=== PATIENT | female | born 1965 | race African-American/Black ===

== ENCOUNTER 2024-05-13 21:50 | Emergency (ER) | payer BC, SELFPAY ==
--- NOTE | 2024-05-13 | ECG_ITS ---
Test Reason : chest tightness Blood Pressure : / mmHG Vent. Rate : 064 BPM Atrial Rate : 064 BPM P-R Int : 174 ms QRS Dur : 088 ms QT Int : 400 ms P-R-T Axes : 076 067 060 degrees QTc Int : 412 ms Normal sinus rhythm Minimal voltage criteria for LVH, may be normal variant ( Sokolow-Mares ) Borderline ECG No previous ECGs available Referred By: Generic ED Physician Electronically Signed By:MELVIN RAMIREZ
--- NOTE | ~2024-05-13 | CT_ITS ---
EXAMINATION: CT CHEST WITH CONTRAST CLINICAL INFORMATION: Indeterminate opacity on chest radiograph COMPARISON: 05/14/2024 chest radiograph TECHNIQUE: Multidetector volumetric CT imaging of the chest was obtained after the administration of 50 mL of Omnipaque 350 intravenous contrast without immediate adverse reactions. Axial MIP volume rendering provided. Sagittal and coronal reformatted images were obtained. This CT examination was performed using dose optimization techniques as appropriate, variously including the following: *Automated exposure control *Adjustment of mA and/or kV according to patient size (this includes techniques or standardized protocols for targeted exams where dose is matched to indication/reason for exam; i.e. 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 LUNGS: Trachea and bronchi are patent. Biapical pleural-parenchymal thickening. Bilateral lower lobe atelectasis. Lobulated right upper lobe mass identified extending from the anterolateral pleura toward the right suprahilar region. This is contiguous with the nodular appearing horizontal fissure. Maximum diameter in the range of 3.5 cm. NODULES: RLL: 3 mm subpleural, 5:255 4 mm subpleural, 5:312 LLL: 3 mm of pleural, 5:309, 6 mm nodule, 5:365 MEDIASTINUM: Diffusely abnormal soft tissue densities in the mediastinum and right hilum consistent with confluent lymphadenopathy. Largest confluence of lymph nodes in the right superior mediastinum/right paratracheal region measuring 3.1 cm. In the anterior mediastinum at the level of the aortic arch and the superior vena cava, 2.1 cm lymph node is seen. Pretracheal lymphadenopathy with 2.5 cm centrally hypodense region. 2.6 cm right supra hilar lymph node. Aurora of nodes in the subcarinal region measuring 3.5 cm. Unremarkable thyroid. Nonenlarged heart. No pericardial effusion. Nonaneurysmal aorta with patency of the branch vessels. Nonenlarged pulmonary arteries. PLEURA: There is no pleural effusion. No pleural mass or thickening. AXILLA: No lymphadenopathy. UPPER ABDOMEN: Enlarged liver. OSSEOUS STRUCTURES: No suspicious osseous lesions. CT/CT chest w IV con IMPRESSION: CT findings suspicious for right upper lobe neoplasm with pathologic mediastinal lymphadenopathy. PET/CT and/or tissue diagnosis recommended. Consider short-term CT follow-up.
--- NOTE | ~2024-05-13 | XR_ITS ---
EXAMINATION: XR CHEST CLINICAL INFORMATION: Chest pressure for 2 weeks. Cough. COMPARISON: None available. TECHNIQUE: 2 views of the chest were obtained. FINDINGS: Lungs are well expanded. On the lateral radiograph, there appears to be an ill-defined nodule or possible small airspace opacity in the anterior aspect of what is likely the right upper lobe, although no convincing upper lobe abnormality seen on the frontal radiograph. Also, there is a mild prominence of the right hilum -- possible mild hilar adenopathy. Cardiomediastinal silhouette has normal size and contour. The pulmonary vascular pattern is normal. No pleural effusion or pneumothorax. No acute osseous abnormality. XR/XR chest 2V IMPRESSION: There is an indeterminate, ill-defined opacity projecting over the anterior upper lung on the lateral radiograph and questionable presence of right hilar lymphadenopathy. Due to diagnostic uncertainty, recommend follow-up chest CT with intravenous contrast for better evaluation of the lungs and pulmonary el.
[2024-05-13 22:08] VITALS: BP 151/81; PULSE 62; RESP 18; TEMP 36.7; O2SAT 100; BMI 22.3
[2024-05-13 22:29] LABS: MANUAL DIFF FLAG NO
[2024-05-13 22:30] LABS: Basophils Percent Auto 0.5 % (0-2); Eosinophils Absolute Auto 0.1 X10*3/uL (0.0-0.4); Eosinophils Percent Auto 0.9 % (0-4); Hematocrit 38.1 % (37.0-47.0); Hemoglobin 12.5 g/dl (12.0-16.0); Imm Gran Abs Auto 0.01 X10*3/uL (0.00-0.03); Imm Gran Pct Auto 0.2 % (0.0-0.4); Lymphocytes Absolute Auto 1.7 X10*3/uL (1.2-4.9); Lymphocytes Percent Auto 31.3 % (20-40); Mean Corpuscular HGB Conc 32.8 g/dl (31.0-35.0); Mean Corpuscular Hemoglobin 30.3 pg (27.0-33.0); Mean Corpuscular Volume 92.5 fL (80.0-98.0); Monocytes Absolute Auto 0.4 X10*3/uL (0.1-1.2); Monocytes Percent Auto 6.7 % (2-11); Neutrophils Absolute Auto 3.3 x10*3/uL (2.0-8.3); Neutrophils Percent Auto 60.4 % (45-73); Platelet Count 171 X10*3/uL (160-400); Red Blood Count 4.12 X10*6/uL (4.20-5.50); Red Cell Distribution Width 13.5 % (11.0-16.0); White Blood Count 5.5 X10*3/uL (4.8-10.8)
[2024-05-13 22:45] LABS: Anion Gap 11 (12-20); Blood Urea Nitrogen 18 mg/dL (9-16); Calcium 9.6 mg/dL (8.4-10.2); Carbon Dioxide 28 mmol/L (22-29); Chloride 105 mmol/L (96-108); Creatinine Clr Calc Pharmacy 70.8; Estimated Glomerular Filt Rate > 60; Glucose Random 93 mg/dL (60-115); Potassium 3.7 mmol/L (3.3-5.1); Sodium 140 mmol/L (135-145)
[2024-05-13 22:54] LABS: Troponin-I High Sensitivity < 2.7 ng/L (<3.5-17.0)
[2024-05-14 00:52] VITALS: BP 149/67; PULSE 69; RESP 16; TEMP 36.6; O2SAT 100
--- NOTE | 2024-05-14 05:59 | MHC.EDTECH ---
pt brought from waiting room to ed bed 19. 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
[2024-05-14 06:00] VITALS: BP 138/73; PULSE 61; RESP 14; TEMP 36.8; O2SAT 98
--- NOTE | 2024-05-14 06:24 | ED_ITS ---
HPI - Chest Pain General Chief Complaint: Chest Pain Stated Complaint: chest pressure and tightness Time Seen by Provider: 05/14/24 06:24 Source: patient Mode of arrival: ambulatory Limitations: no limitations History of Present Illness ED Provider: dorene PICHARDO narrative: Patient is a 59-year-old female with no reported past medical history, states only takes vitamins and supplements daily presenting to the emergency department with complaint of chest pressure for the past 1-2 weeks, yesterday developed sore throat and painful swallowing. States she was evaluated for the chest pressure at urgent care and had chest x-ray, labs, and EKG which she was told were all normal. Has taken ibuprofen for the chest pressure with temporary relief. States the pressure has waxed and waned but has been constant. Feels pressure worsens when she leans forward. Denies fevers. Does report occasional nonproductive cough. Denies known sick contacts. Describes her chest pressure as a discomfort and states it is not pain. She denies difficulty breathing. Denies palpitations. Denies history of blood clots, recent travel or surgery, is not on any hormone replacement therapy. Denies abdominal pain, nausea, vomiting. She denies history of smoking, states she did not grow up around second-hand smoke, briefly had one living arrangement where she was exposed to second hand smoke. complaint: chest heaviness Onset (ago): week(s) Timing of current episode: constant Quality: heaviness Associated symptoms: cough and other (sore throat) Treatment prior to arrival: other (ibuprofen) Related Data Allergies Allergy/AdvReac Type Severity Reaction Status Date / Time No Known Allergies Allergy Verified 05/13/24 22:11 Review of Systems 2 Review of Systems: As per HPI. Yes all other systems are reviewed and are negative Constitutional: Constitutional: Reports as per HPI [facility] Social History Social History Alcohol intake: current Alcohol intake frequency: a few times a week Smoked in Last 30 Days: No Use of substances other than those prescribed or required for medical reasons: No Advance Directives: No Advance Directives Information Provided: Yes Patient : No Physical Exam 2 Vital Signs: Vital Signs: Last Vital Signs Temp 98.2 F 05/14/24 06:00 Pulse 68 05/14/24 08:05 Resp 16 05/14/24 08:05 BP 146/65 H 05/14/24 08:05 Pulse Ox 98 05/14/24 08:05 O2 Del Method Room Air 05/14/24 08:05 BMI result Body Mass Index 22.3 Vital signs have been reviewed and appear to be correct. Blood pressure normal. Heart rate normal. Respiratory rate normal. Temperature normal. Oxygen saturation normal. Const: General: cooperative, healthy appearing and no acute distress O rientation/consciousness: oriented to person, oriented to place, oriented to time and patient oriented x3 Limitations: no limitations HEENT: Head: Yes normocephalic and Yes atraumatic Ears: external ears normal, TM's normal bilaterally and EAC's normal General nose exam: Normal external nose present Face and sinus: Yes face symmetric Mouth: lip normal, tongue normal, oropharynx normal, moist mucous membranes, no audible dysphonia, no drooling, no muffled voice, no trismus and No restricted motion Throat: Yes uvula midline, No peritonsillar mass, Yes posterior oropharynx abnormal (erythema, mild edema, no exudate) and No uvular edema Eyes: Pupils: Equal, round and reactive pupils present Neck: Neck: Yes normal visual inspection and Yes supple Lymphatic: l ymphadenopathy left anterior cervical Resp: Effort & Inspection: normal respiratory effort and able to speak in complete sentences Auscultation: clear to auscultation bilaterally Cardio: Rate: regular rate Rhythm: regular rhythm Heart sounds: S1 normal heart sound present and S2 normal heart sound present GI: Palpation (GI): Soft to palpation and nontender Auscultation: n ormoactive bowel sounds : General: Yes no CVA tenderness Back/Spine/Pelvis: Back: no CVA tenderness Skin: General skin exam: elasticity normal and turgor normal Neuro: General: oriented to person, oriented to place, oriented to time, patient oriented x3, moves all extremities, no focal motor deficits and CN's II- XI intact bilaterally Cranial nerves: Yes Equal, round and reactive pupils present Cognition (Neuro): normal cognition Extrem: General: Yes full ROM, Yes no pedal edema and Yes no calf tenderness Psych: Mental Status: mental status grossly normal Affect: normal affect Thought process: Normal thought process present Medications Administered Discontinued Medications Generic Name Dose Route Start Last Admin Trade Name Freq PRN Reason Stop Dose Admin Iohexol 100 ml 05/14/24 08:52 05/14/24 08:52 Iohexol 350 Mg/Ml 100 Ml Infus..Btl IV 05/14/24 08:53 65 ml ONCE ONE Administration Medical Decision Making Medical Decision Making [facility] Narrative: Patient is a 59-year-old female with no reported past medical history, states only takes vitamins and supplements daily presenting to the emergency department with complaint of chest pressure for the past 1-2 weeks, yesterday developed sore throat and painful swallowing. On exam patient is awake, A+Ox3, VS WNL, afebrile, normal neurological exam without focal deficits, physical exam findings as above. Given reported symptoms and physical exam findings, initial differential includes ACS, pneumothorax, pneumonia, musculoskeletal pain, viral illness, strep pharyngitis, GERD. Labs unremarkable, troponin negative. EKG shows normal sinus rhythm. Strep and viral swabs negative. X-ray chest notable for indeterminate opacity over anterior upper lung with question for right hilar lymphadeopathy, CT recommended. CT chest notable for right upper lobe mass with mediastinal lymphadenopathy. My interpretation is in agreement with the radiologist's interpretation. Results discussed with patient at bedside and all questions answered. Discussed with patient that she will need follow up with buffer chrome and oncologist as soon as possible for further evaluation and management. Return precautions discussed at bedside. Patient verbalized understanding of and agreement with plan. Differential Diagnosis Differential Diagnoses: The differential diagnosis associated with the presentation includes As per [facility] Admission/Observation Consideration of admission/observation: Escalation of care including admission/observation considered Lab Data [facility] Lab Attestation statement: I reviewed the patient's lab results. As per [facility] 05/13/24 22:24 05/13/24 22:24 Labs: Lab Results 05/13/24 05/14/24 Range/Units 22:24 06:57 WBC 5.5 (4.8-10.8) X10*3/uL RBC 4.12 L (4.20-5.50) X10*6/uL Hgb 12.5 (12.0-16.0) g/dl Hct 38.1 (37.0-47.0) % MCV 92.5 (80.0-98.0) fL MCH 30.3 (27.0-33.0) pg MCHC 32.8 (31.0-35.0) g/dl RDW 13.5 (11.0-16.0) % Plt Count 171 (160-400) X10*3/uL MPV 9.0 L (9.4-12.3) fL Immature Gran % (Auto) 0.2 (0.0-0.4) % Neut % (Auto) 60.4 (45-73) % Lymph % (Auto) 31.3 (20-40) % Bracken % (Auto) 6.7 (2-11) % Eos % (Auto) 0.9 (0-4) % Baso % (Auto) 0.5 (0-2) % Lymph # (Auto) 1.7 (1.2-4.9) X10*3/uL Bracken # (Auto) 0.4 (0.1-1.2) X10*3/uL Eos # (Auto) 0.1 (0.0-0.4) X10*3/uL Baso # (Auto) 0.0 (0.0-0.2) X10*3/uL Abs Immat Gran (auto) 0.01 (0.00-0.03) X10*3/uL Absolute Neuts (auto) 3.3 (2.0-8.3) x10*3/uL Absolute Nucleated RBC 0.000 (0.0-0.012) X10*3/uL Nucleated RBC % (auto) 0.0 (0.0-0.2) /100WBC Sodium 140 (135-145) mmol/L Potassium 3.7 (3.3-5.1) mmol/L Chloride 105 (96-108) mmol/L Carbon Dioxide 28 (22-29) mmol/L Anion Gap 11 L (12-20) BUN 18 H (9-16) mg/dL Creatinine 0.82 (0.5-1.4) mg/dL Estim Creat Clear Calc 70.8 Estimated GFR > 60 Random Glucose 93 (60-115) mg/dL Calcium 9.6 (8.4-10.2) mg/dL Troponin I High Sens < 2.7 (<3.5-17.0) ng/L Influenza Type A (PCR) NEGATIVE (Negative) Influenza Type B (PCR) NEGATIVE (Negative) RSV RNA Qual (PCR) NEGATIVE (Negative) SARS-CoV-2 RNA (RT-PCR) NEGATIVE (Negative) S. pyogenes GrpA JENI Negative (Negative) Independent Interpretation I performed an independent interpretation of an: EKG (normal sinus ), Plain X- Ray and CT Scan Interpretation: X-ray chest notable for indeterminate opacity over anterior upper lung with question for right hilar lymphadeopathy, CT recommended. CT chest notable for right upper lobe mass with mediastinal lymphadenopathy. Radiology Impression Discussion of test interpretation with radiology: I have reviewed the radiologist's reading. Radiologist Impression: XR/XR chest 2V IMPRESSION: There is an indeterminate, ill-defined opacity projecting over the anterior upper lung on the lateral radiograph and questionable presence of right hilar lymphadenopathy. Due to diagnostic uncertainty, recommend follow-up chest CT with intravenous contrast for better evaluation of the lungs and pulmonary el. CT/CT chest w IV con IMPRESSION: CT findings suspicious for right upper lobe neoplasm with pathologic mediastinal lymphadenopathy. PET/CT and/or tissue diagnosis recommended. Consider short-term CT follow-up. External Record Review External record reviewed: Inpatient record, Office record and Outpatient record Discharge Plan Discharge Clinical Impression: Mass of upper lobe of right lung, Mediastinal lymphadenopathy Patient Disposition: Home, Self-Care Instructions: Needle Biopsy of the Lung (DC), Video Assisted Thoracoscopic Surgery (DC), Lymphadenopathy (ED) Additional Instructions: You were evaluated in the emergency department today for chest pressure. Your CT scan showed a mass in your right upper lung with associated lymphadenopahty. We recommend that you follow up with the buffer chrome and oncologist as soon as possible for further evaluation and management. Schedule a follow up appointment with your primary care provider as well. Return to the emergency department if you develop difficulty breathing or shortness of breath, fever, worsening chest pain or any other new or concerning symptoms. Referrals: Verna Drake MD [Physician] - Levar Summers MD [Physician] - Robert Ren MD [Physician] - Print Language: Nepali
[2024-05-14 07:12] LABS: IDNOW Serial# 08D9AD1C; Strep A Nucleic Acid Negative (Negative)
[2024-05-14 08:05] VITALS: BP 146/65; PULSE 68; RESP 16; O2SAT 98
[2024-05-14 08:07] LABS: Influenza A PCR NEGATIVE (Negative); Influenza B PCR NEGATIVE (Negative); Resp Syncy Virus RNA Qual PCR NEGATIVE (Negative); SARS COV2 PCR INHOUSE NEGATIVE (Negative)
[2024-05-14] MEDS: iohexoL 350 MG/ML 100 ML INFUS..BTL IV (08:52)
[2024-05-14 10:30] VITALS: BP 138/78; PULSE 67; RESP 20; TEMP 36.9; O2SAT 100
== END 2024-05-14 10:31 | disposition home or self-care (01) ==
PROVIDERS: Registered Nurse Emergency; Emergency Provider Emergency Medicine
DX: R91.8 Other nonspecific abnormal finding of lung field (principal); R59.0 Localized enlarged lymph nodes; Z03.818 Encounter for observation for suspected exposure to other biological agents ruled out; R05.9 Cough, unspecified; J02.9 Acute pharyngitis, unspecified
CPT/HCPCS: 0241U; 36415; 71046; 71260; 80048; 84484; 85025; 87651; 93005; 99284; 99285; Q9967

== ENCOUNTER → 2024-05-13 21:54 | Outpatient (BNV) | payer BC, SELFPAY | PROVIDERS: Emergency Provider Emergency Medicine; Visit Provider Internal Medicine | DX: R07.89 Other chest pain (principal) | CPT/HCPCS: 93010 ==

== ENCOUNTER → 2024-05-20 11:05 | Outpatient (BNV) | payer BC, SELFPAY | PROVIDERS: PCP Internal Medicine; Visit Provider Internal Medicine | DX: C78.01 Secondary malignant neoplasm of right lung (principal); C56.9 Malignant neoplasm of unspecified ovary; R59.0 Localized enlarged lymph nodes | CPT/HCPCS: 99204; 99215 ==

== ENCOUNTER 2024-05-22 09:54 | Outpatient (AMB) | payer BC, SELFPAY ==
--- NOTE | 2024-05-22 09:56 | A.OFFVIS_ITS ---
Vital Signs 05/22/24 10:01 Height 5 ft 6 in Weight 133 lb 6 oz BMI 21.5 BP 120/66 Blood Pressure Location Rt brachial Position Sitting Pulse 69 Pulse Source Pulse Oximeter Pulse Oximetry (%) 100 Oxygen Delivery Method Room Air Intake Visit Reasons: Abnormal CT scan Allergies No Known Allergies Allergy (Verified 05/22/24 10:04) HPI HPI Abnormal CT scan: Details: Aysha is a pleasant 59 year old female, never smoker, who presents for pulmonary evaluation after recent [facility] evaluation. She developed a productive cough with clear to white sputum with nasal drainage and anterior chest discomfort, mostly right sided in the beginning on April, was evaluated at a local urgent care with no significant findings. CXR and EKG were reportedly unremarkable. Symptoms persisted which prompted her to go to [facility] ED for evaluation on 05/14/24. During workup patient was found to have a 3.5 cm mass of the RUL and mediastinal lymphadenopathy, concerning for malignancy. She was referred to oncology and had consultation this past Monday. Patient was also discussed at multidisciplinary conference last Monday with recommendations for PET and EBUS. PET scan was ordered and will be scheduled at [facility]. She denies any fevers, chills, decreased appetite or weight loss. She maintains an active lifestyle. She has had significant improvements in cough now intermittent and reports chest discomfort resolved however continues to feel as though there is a heaviness in the area of the RUL. She reports in 2018/2018 she had abnormal vaginal bleeding ultimately undergoing total hysterectomy after pathology revealed isolated ovarian cancer. At that time she underwent PET which was reportedly negative. She recalls undergoing CXR/CT in the past which revealed possible basilar nodules, however never findings of upper lobes. She reports maternal uncle, smoker, with h/o lung cancer. She is unaware of any health conditions present on paternal side of family. 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 She does note secondary exposure to cigarette smoke. [facility] Family History (Updated 05/20/24 @ 11:24 by Everette Rivas) Maternal Uncle Lung cancer Social History Household Members: Spouse and Significant Other Alcohol intake: current Alcohol intake frequency: a few times a week Patient Tobacco Use Status: Never used Tobacco service: No Current occupational status: employed Gender identity: Female Review of Systems Const Denies chills, Denies excessive sweating, Denies fever(s) and Denies headache(s) Eyes Denies dry eyes, Denies irritation and Denies itchy eyes ENT Reports Normal hearing present, Denies headache(s), Denies nasal congestion, Denies nasal discharge, Denies post nasal drip and Denies sore throat Card Denies chest pain, Denies chest pain at rest, Denies chest pain with activity, Denies claudication, Denies leg edema, Denies dyspnea, Denies dyspnea on exertion, Denies orthopnea and Denies paroxysmal nocturnal dyspnea Resp Denies chest congestion, Denies excessive phlegm production, Denies pain on inspiration, Denies pain with cough, Denies dyspnea, Denies dyspnea on exertion, Denies stridor and Denies wheezing Musc Denies myalgias Neuro Reports Normal hearing present and Denies headache(s) Endo Denies excessive sweating Solo/Lymph Denies lymphadenopathy Aller/Immun Denies itchy eyes, Denies seasonal rhinorrhea and Denies wheezing Physical Exam Vital Signs: Last Vital Signs Pulse 69 05/22/24 10:01 BP 120/66 05/22/24 10:01 Pulse Ox 100 05/22/24 10:01 Oxygen Delivery Method Room Air 05/22/24 10:01 BMI result Body Mass Index 21.5 Const General: cooperative, healthy appearing, comfortable, no acute distress, well developed and alert Orientation/consciousness: patient oriented x3 Limitations: no limitations HEENT Head: Yes normal to inspection, Yes normocephalic and Yes atraumatic Ears: hearing grossly normal bilaterally and external ears normal Eyes General: appearance normal, both eyes and all related structures Eyelids: Yes eyelids normal Sclerae: sclerae normal EOM: EOMs intact bilaterally Neck Neck: Yes normal visual inspection Chest Chest palpation & inspection: normal inspection of the chest Resp Effort & Inspection: normal respiratory effort, able to speak in complete sentences, no audible wheezes, no cough, no stridor, not tachypneic, no tripod positioning and no use of accessory muscles Auscultation: clear to auscultation bilaterally Cardio Jugular venous distension: no JVD Rate: regular rate Rhythm: regular rhythm Skin Other: warm, dry General skin exam: no rashes or lesions noted Neuro General: patient oriented x3 Cranial nerves: Yes Normal hearing present Cognition (Neuro): normal cognition Gait exam (Neuro): Normal gait present Extrem General: Yes normal to inspection, Yes capillary refill normal, Yes no clubbing, cyanosis or edema and Yes no pedal edema Psych Appearance: grossly normal and well kempt Speech and movement: Normal speech and movement present and Clear speech present Affect: normal affect Attitude: cooperative Thought process: Normal thought process present Thought content: Normal thought content present Insight: Good insight present (Psych) Judgement: Good judgement present (Psych) Results Reviewed Results Reviewed: [address] [address] [address] Scan Report Signed Patient: Aysha Yadav MR#: [id number] : 1965 Acct:[id number] Age/Sex: 59 / F ADM Date: 05/14/24 Loc: HO.ED Attending Dr: Ordering Physician: Cynthia Tate NP Date of Service: 05/14/24 Procedure(s): CT chest w IV con Accession Number(s): [id number] cc: Physician,None ; Cynthia Tate NP~ EXAMINATION: CT CHEST WITH CONTRAST CLINICAL INFORMATION: Indeterminate opacity on chest radiograph COMPARISON: 05/14/2024 chest radiograph TECHNIQUE: Multidetector volumetric CT imaging of the chest was obtained after the administration of 50 mL of Omnipaque 350 intravenous contrast without immediate adverse reactions. Axial MIP volume rendering provided. Sagittal and coronal reformatted images were obtained. This CT examination was performed using dose optimization techniques as appropriate, variously including the following: *Automated exposure control *Adjustment of mA and/or kV according to patient size (this includes techniques or standardized protocols for targeted exams where dose is matched to indication/reason for exam; i.e. 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 LUNGS: Trachea and bronchi are patent. Biapical pleural-parenchymal thickening. Bilateral lower lobe atelectasis. Lobulated right upper lobe mass identified extending from the anterolateral pleura toward the right suprahilar region. This is contiguous with the nodular appearing horizontal fissure. Maximum diameter in the range of 3.5 cm. NODULES: RLL: 3 mm subpleural, 5:255 4 mm subpleural, 5:312 LLL: 3 mm of pleural, 5:309, 6 mm nodule, 5:365 MEDIASTINUM: Diffusely abnormal soft tissue densities in the mediastinum and right hilum consistent with confluent lymphadenopathy. Largest confluence of lymph nodes in the right superior mediastinum/right paratracheal region measuring 3.1 cm. In the anterior mediastinum at the level of the aortic arch and the superior vena cava, 2.1 cm lymph node is seen. Pretracheal lymphadenopathy with 2.5 cm centrally hypodense region. 2.6 cm right supra hilar lymph node. Bath of nodes in the subcarinal region measuring 3.5 cm. Unremarkable thyroid. Nonenlarged heart. No pericardial effusion. Nonaneurysmal aorta with patency of the branch vessels. Nonenlarged pulmonary arteries. PLEURA: There is no pleural effusion. No pleural mass or thickening. AXILLA: No lymphadenopathy. UPPER ABDOMEN: Enlarged liver. OSSEOUS STRUCTURES: No suspicious osseous lesions. CT/CT chest w IV con IMPRESSION: CT findings suspicious for right upper lobe neoplasm with pathologic mediastinal lymphadenopathy. PET/CT and/or tissue diagnosis recommended. Consider short-term CT follow-up. Dictated By: Vanessa Pichardo MD Signed By: <Electronically signed by Vanessa Pichardo MD in OV> 05/14/24 1004 DD/ 0852 TD/TT: Impregnator And Drier Helper: Assessment & Plan Assessment & Plan (1) Mass of upper lobe of right lung: Comment: (Lobulated RUL mass from anterolateral pleaur to right suprahilar region contiguous with nodular horizontal fissure measuring 3.5cm - 05/14/[address]) Code(s): R91.8 - Other nonspecific abnormal finding of lung field Category: Medical (2) Mediastinal lymphadenopathy: Code(s): R59.0 - Localized enlarged lymph nodes Category: Medical Plan Aysha presents after recent ED evaluation revealed 3.5 cm RUL mass with associated mediastinal lymphadenopathy, largest is the right superior mediastinum/right paratracheal region measuring 3.1 cm. We discussed the possibility that this is suggestive of malignancy and need for further workup including PET scan as well as EBUS to obtain biopsy. PET scan order has been sent to [facility] and EBUS will be scheduled in the near future. She is aware that once biopsy/PET are resulted, we will discuss at our multidisciplinary conference and call her with treatment plan. All questions were answered and patient is in agreement of plan. Coding Level of Care Code New Pt Level 3 (62304) Diagnoses Mass of upper lobe of right lung R91.8 Mediastinal lymphadenopathy R59.0
[2024-05-22 10:01] VITALS: BP 120/66; PULSE 69; O2SAT 100; BMI 21.5
== END 2024-05-22 10:38 | disposition home or self-care (01) ==
PROVIDERS: Referring Provider Registered Nurse Emergency; Visit Provider Nurse Practitioner Family
DX: R91.8 Other nonspecific abnormal finding of lung field (principal); R59.0 Localized enlarged lymph nodes
CPT/HCPCS: 99203

== ENCOUNTER → 2024-05-22 09:54 | Outpatient (BNVA) | payer BC, SELFPAY | PROVIDERS: Referring Provider Registered Nurse Emergency; Visit Provider Nurse Practitioner Family ==

== ENCOUNTER 2024-05-28 11:24 | Day surgery (SDC) | payer BC, SELFPAY ==
[2024-05-28] VITALS (13 sets, daily range): BP systolic 96–138; BP diastolic 52–77; PULSE 81–96; RESP 12–24; TEMP 36.6–37.2; O2SAT 92–100; BMI 21.6
[2024-05-28] MEDS: Lactated Ringers 1,000 ML 80 ML IVCONT (12:11)
--- NOTE | 2024-05-28 12:20 | MHC.SHP ---
Pre-Procedural Eval Section A - 24 Hr Update-Section A only Date of Service: 05/28/24 The patient is an INPATIENT: No Changes since office visit: Yes Patient answered all questions; No Cold of Flu in the past 2 weeks, No New Medical Problems and No Changes in Medication The patient has been examined within 24 hours of the surgical procedure. The History & Physical has been completed within 30 days and I have reviewed it.: Yes Section B - Complete if H&P > 30 days Chief Complaint: Other nonspecific abnormal finding of lung field Allergies: Allergies Allergy/AdvReac Type Severity Reaction Status Date / Time No Known Allergies Allergy Verified 05/22/24 10:04 Plan Diagnosis/Plan: Unchanged I have reviewed the history and physical and performed a pertinent physical examination on my patient. No changes have occurred unless specified. Time Spent With Patient Time: Total time managing care of this patient today ____ minutes.
--- NOTE | 2024-05-28 14:20 | PM.OP ---
Brief Operative Note Date of Service: 05/28/24 Pre-op diagnosis: Lung cancer Post-op diagnosis: same Procedure: Endobronchial ultrasound acute bronchoscope advanced through ET tube with patient intubated for the procedure through the tracheobronchial tree with visualization of normal mucosa. Thereafter, endobronchial ultrasound-guided biopsy of subcarinal lymph node (station 7) performed with 4 passes. On site pathologic review identified lymph node material in the obtained tissue specimens which were sent for further pathologic evaluation. Biopsy site observed and hemostasis noted. Patient tolerated procedure well and was returned to PACU in stable condition. Surgeon: Levar Summers MD Anesthesia: GETA Was an Wrapper Hand used for this Procedure?: No Estimated blood loss (mL): 0 Condition: stable Disposition: PACU
[2024-05-28] MEDS: Albuterol/Iprat 2.5/0.5MG 3 ML AMPUL.NEB INHALE (14:56)
[2024-05-28] MEDS: fentaNYL citrate/PF 100 MCG/2 ML VIAL 50 MCG IVPUSH (15:45)
== END 2024-05-28 16:53 | disposition home or self-care (01) ==
PROVIDERS: PCP Internal Medicine; Visit Provider Internal Medicine Pulmonary Disease
PROC: (CPT 31652; principal; 2024-05-28 13:00)
DX: R91.8 Other nonspecific abnormal finding of lung field (principal); R59.0 Localized enlarged lymph nodes; R05.8 Other specified cough; Z77.22 Contact with and (suspected) exposure to environmental tobacco smoke (acute) (chronic); C56.9 Malignant neoplasm of unspecified ovary
CPT/HCPCS: 31652; 88172; 88173; 88305; 88341; 88342; J0171; J1100; J2405; J2704; J3010

== ENCOUNTER → 2024-05-28 11:24 | Outpatient (BNV) | payer BC, SELFPAY | PROVIDERS: PCP Internal Medicine; Visit Provider Internal Medicine Pulmonary Disease | DX: R91.8 Other nonspecific abnormal finding of lung field (principal) | CPT/HCPCS: 31652 ==

== ENCOUNTER 2024-06-27 10:53 | Day surgery (SDC) | payer BC, SELFPAY ==
[2024-06-27] VITALS (7 sets, daily range): BP systolic 118–142; BP diastolic 64–76; PULSE 68–99; RESP 16–20; TEMP 36.7–36.9; O2SAT 94–100; BMI 21.8
--- NOTE | ~2024-06-27 | IR_ITS ---
CLINICAL HISTORY: Cancer. The patient presents to interventional radiology for placement of a port for chemotherapy. PROCEDURES: 1. Real-time ultrasound-guided access into the left internal jugular vein after documentation of selected vessel patency, and permanent image storing in the patient records. 2. Placement of a 6.6 [place] single-lumen power port. MEDICATIONS: - Versed Fentanyl Lidocaine 1% 10 mL SQ -Antibiotics: Ancef 2g -For additional details, please see nursing flowsheet. Complications: None. Estimated blood loss: <5 ml Specimens: None. Contrast: None. Fluoroscopy time: 0.8 min MODERATE SEDATION TIME: 27 min PROCEDURE NOTE: The procedure, risks, benefits, and alternatives were carefully explained to the patient and written informed consent was obtained. The patient was placed supine on the fluoroscopy table. A timeout was performed. The left neck and chest was prepped and draped in usual sterile fashion. Maximum barrier technique was utilized. Local anesthesia was administered to the access site with 1% lidocaine. Under ultrasound guidance, the left internal jugular vein was accessed with a 5 fr micropuncture set. A 0.035 in wire was advanced into the IVC. A peel-away sheath was advanced over the wire and into the SVC, and the wire was removed. Next, subcutaneous lidocaine was administered to the chest. The port pocket was created after the skin incision, utilizing blunt dissection. Using blunt dissection, a subcutaneous tunnel was created that connects from the port pocket to the venotomy site. Through the peel-away sheath, the 6.6 [place] port catheter was placed. The catheter position was verified with fluoroscopy to be at the cavoatrial junction. The port was connected to the catheter and was placed in the pocket. The venotomy site was closed with a 3-0 Vicryl subcutaneous suture. The port incision site was closed with interrupted 3-0 Vicryl subcutaneous sutures and surgical glue. Prior to closing the skin, 1 g of Ancef solution was placed in the pocket. The port was tested, flushed, and packed with heparin per routine protocol. The patient tolerated the procedure well. The patient was stable after the procedure and was transferred to the PACU. The procedure was performed under moderate sedation and with a dedicated nurse with continuous monitoring of vital signs. A permanent image of the ultrasound the neck and fluoroscopic image of the chest was saved and sent to PACS. FINDINGS: 1. Patent internal jugular vein 2. Placement of a 6.6 [place] single lumen power port. 3. Port flushes and aspirates very well with a 10 mL syringe. No pneumothorax. IR/IR cvc insert tunnel w prt/banquet captain IMPRESSION: Placement of a 6.6 [place] single-lumen power port via left IJ venous approach. PLAN: - The patient will be discharged home when stable by sedation protocol. - Port may be used immediately. Electronically signed by: Ihsan Eaton MD 06/27/2024 04:43 PM EDT
--- NOTE | 2024-06-27 13:42 | MHC.SHP ---
Pre-Procedural Eval Section A - 24 Hr Update-Section A only Date of Service: 06/27/24 Section B - Complete if H&P > 30 days Chief Complaint: MALIGNANT NEOPLASM Details of Present Illness: 59 y/o female with NSCLC of the right lung and poor iv access Relevant Family History (Specify if Yes): No Relevant Social History: None Present Medications: see Short Stay Collaborative assessment Medical History: Significant History History of Previous Operations: Relevant previous surgery/procedure and date(s) Allergies: Allergies Allergy/AdvReac Type Severity Reaction Status Date / Time No Known Allergies Allergy Verified 06/27/24 12:34 Review of Systems Sugical H&P ROS: Negative: Constitution, Cardiovascular, Respiratory and Integumentary Exam Surgical H&P Exam: Normal: Heart, Normal: Lungs, Normal: Skin and Normal: Neurological Plan 59 y/o female with NSCLC of the right lung and poor iv access -Port Time Spent With Patient Time: Total time managing care of this patient today ____ minutes.
--- NOTE | 2024-06-27 14:31 | PC.NURSE ---
report given to renny gallardo rn at this time.
== END 2024-06-27 17:57 | disposition home or self-care (01) ==
PROVIDERS: Radiology Vascular & Interventional Radiology; PCP Internal Medicine; Visit Provider Internal Medicine
DX: C34.11 Malignant neoplasm of upper lobe, right bronchus or lung (principal); C77.1 Secondary and unspecified malignant neoplasm of intrathoracic lymph nodes; Z79.899 Other long term (current) drug therapy
CPT/HCPCS: 36561; 99152; 99153; C1769; C1788; J0131; J0690; J1642; J1644; J2250; J2310; J2405; J3010

== ENCOUNTER → 2024-06-27 15:36 | Outpatient (BNV) | payer BC, SELFPAY | PROVIDERS: PCP Internal Medicine; Visit Provider Student in an Organized Health Care Education/Training Program | DX: C34.90 Malignant neoplasm of unspecified part of unspecified bronchus or lung (principal) | CPT/HCPCS: 36561; 76937 ==

== ENCOUNTER 2024-07-07 15:20 | Outpatient (REF) | payer BC, SELFPAY ==
--- NOTE | ~2024-07-07 | MR_ITS ---
EXAMINATION: MR BRAIN WITHOUT AND WITH CONTRAST CLINICAL INFORMATION: Staging of lung cancer. COMPARISON: No relevant prior imaging. TECHNIQUE: Multiplanar MR imaging of the brain was performed without and with contrast. A total of 6 mL Gadavist was utilized for this examination. FINDINGS: Postcontrast images reveal no abnormal intracranial mass or enhancement. Specifically no evidence of intracranial metastatic disease. There is no intracranial mass effect or midline shift. No abnormal extra-axial collection. Lateral and third ventricles are normal. No hydrocephalus. Midline structures including the cervicomedullary junction are normal. No acute bone marrow signal changes. There is no acute territorial infarct. No pathological magnetic susceptibility artifact. Intracranial vascular flow voids are maintained. There is no mastoid or middle ear effusion. No active paranasal sinus disease. Globes and orbits are symmetric. MR/MR head/brain wo/w con IMPRESSION: Normal brain MRI. No evidence of intracranial metastatic disease. Electronically signed by: Iggy Arango MD 07/07/2024 04:56 PM EDT
[2024-07-07] MEDS: gadobutroL 7.5 ML VIAL IVPUSH (15:59)
== END 2024-07-07 15:21 | disposition home or self-care (01) ==
LOC: HO.MRI 15:20
PROVIDERS: PCP Internal Medicine; Visit Provider Internal Medicine
DX: C34.90 Malignant neoplasm of unspecified part of unspecified bronchus or lung (principal)
CPT/HCPCS: 70553; A9585

== ENCOUNTER 2024-07-10 09:39 | Outpatient (REF) | payer BC, SELFPAY ==
--- NOTE | ~2024-07-10 | US_ITS ---
EXAMINATION: US THYROID CLINICAL INFORMATION: Right neck swelling, history of metastatic lung cancer.. COMPARISON: No prior neck imaging available. TECHNIQUE: Linear transducer nair-scale and color Doppler examination with attention to the right supraclavicular region, in the region of swelling. FINDINGS: Images demonstrate 2 pathologic supraclavicular lymph nodes, with irregular borders, effaced fatty hilum, thickened cortex, and abnormal shape. A larger measures 1.3 x 1.5 x 1.1 cm and is somewhat hypervascular, and the smaller measures 1.2 x 1.1 x 1.0 cm, is also demonstrating abnormal morphology and cortical thickening. US/US soft tiss head and/or neck IMPRESSION: -2 pathologic-appearing right supraclavicular lymph nodes, larger measuring 1.5 cm maximally, smaller measuring 1.2 cm maximally. These are most likely metastatic in nature. Findings communicated to Dr. Drake via secure text at 11:00 AM, 07/10/2024. Electronically signed by: Emil Mccarthy MD 07/10/2024 11:02 AM EDT
--- NOTE | ~2024-07-10 | US_ITS ---
EXAMINATION: US TRIPLEX UPPER EXTREMITY, RIGHT CLINICAL INFORMATION: Metastatic cancer, swelling tenderness right neck. Rule out DVT. COMPARISON: None relevant. TECHNIQUE: Color-flow triplex imaging with spectral analysis and compression Doppler was performed on the right upper extremity. FINDINGS: The right internal jugular, subclavian, and axillary veins are patent and free of thrombus. The imaged segment of the right brachiocephalic vein is patent. Spectral doppler waveforms are normal. The brachial, basilic, cephalic, radial, and ulnar veins are patent and compressible. US/US venous duplex UE RT IMPRESSION: No evidence of deep venous thrombosis involving the right upper extremity. Electronically signed by: Emil Mccarthy MD 07/10/2024 10:53 AM EDT
== END 2024-07-10 09:40 | disposition home or self-care (01) ==
LOC: HO.US 09:39
PROVIDERS: PCP Internal Medicine; Visit Provider Internal Medicine
DX: R60.0 Localized edema (principal)
CPT/HCPCS: 76536; 93971

== ENCOUNTER → 2024-07-10 09:44 | Outpatient (BNV) | payer BC, SELFPAY | PROVIDERS: PCP Internal Medicine; Visit Provider Radiology Diagnostic Radiology | DX: R22.1 Localized swelling, mass and lump, neck (principal) | CPT/HCPCS: 76536 ==

== ENCOUNTER 2024-09-17 16:40 | Outpatient (REF) | payer BC, SELFPAY ==
[2024-09-17 16:50] LABS: MANUAL DIFF FLAG NO
[2024-09-17 17:08] LABS: Basophils Percent Auto 0.7 % (0-2); Eosinophils Percent Auto 0.3 % (0-4); Hematocrit 39.1 % (37.0-47.0); Hemoglobin 12.9 g/dl (12.0-16.0); Imm Gran Abs Auto 0.01 X10*3/uL (0.00-0.03); Imm Gran Pct Auto 0.2 % (0.0-0.4); Lymphocytes Absolute Auto 1.8 X10*3/uL (1.2-4.9); Lymphocytes Percent Auto 30.9 % (20-40); Mean Corpuscular Hemoglobin 30.1 pg (27.0-33.0); Mean Corpuscular Volume 91.4 fL (80.0-98.0); Mean Platelet Volume 9.4 fL (9.4-12.3); Monocytes Absolute Auto 0.5 X10*3/uL (0.1-1.2); Monocytes Percent Auto 8.7 % (2-11); Neutrophils Absolute Auto 3.5 x10*3/uL (2.0-8.3); Neutrophils Percent Auto 59.2 % (45-73); Platelet Count 205 X10*3/uL (160-400); Red Blood Count 4.28 X10*6/uL (4.20-5.50); Red Cell Distribution Width 17.6 % (11.0-16.0); White Blood Count 5.9 X10*3/uL (4.8-10.8)
[2024-09-17 17:26] LABS: Appearance Urine Clear; Color Urine Yellow; Glucose Urine UA Negative (Negative); Leukocyte Esterase Urine Negative (Negative); Nitrite Urine Negative (Negative); Specific Gravity - Urine 1.015 (1.005-1.025); Urine Blood Negative (Negative); Urine Ketones Negative (Negative); Urine Protein Negative (Neg-Trace)
[2024-09-17 17:42] LABS: Alanine Aminotransferase 36 U/L (0-31); Albumin Level 4.5 g/dL (3.5-5.0); Alkaline Phosphatase 68 U/L (39-117); Anion Gap 9 (12-20); Aspartate Amino Transferase 25 U/L (5-31); Bilirubin Total 0.7 mg/dL (0.0-1.0); Blood Urea Nitrogen 14 mg/dL (9-16); Calcium 10.3 mg/dL (8.4-10.2); Carbon Dioxide 30 mmol/L (22-29); Chloride 103 mmol/L (96-108); Estimated Glomerular Filt Rate > 60; Glucose Random 93 mg/dL (60-115); Sodium 138 mmol/L (135-145); Total Protein 7.7 g/dL (6.5-8.0)
== END 2024-09-17 16:41 | disposition home or self-care (01) ==
LOC: HO.LAB 16:40
PROVIDERS: Visit Provider Internal Medicine
DX: C34.91 Malignant neoplasm of unspecified part of right bronchus or lung (principal)
CPT/HCPCS: 36415; 80053; 81003; 85025

== ENCOUNTER 2024-12-10 16:29 | Outpatient (REF) | payer OTHER, SELFPAY ==
[2024-12-10 16:43] LABS: MANUAL DIFF FLAG NO
[2024-12-10 16:54] LABS: Basophils Percent Auto 0.5 % (0-2); Eosinophils Percent Auto 0.9 % (0-4); Hematocrit 37.1 % (37.0-47.0); Hemoglobin 12.6 g/dl (12.0-16.0); Lymphocytes Absolute Auto 1.3 X10*3/uL (1.2-4.9); Lymphocytes Percent Auto 30.8 % (20-40); Mean Corpuscular Hemoglobin 32.9 pg (27.0-33.0); Mean Corpuscular Volume 96.9 fL (80.0-98.0); Mean Platelet Volume 8.9 fL (9.4-12.3); Monocytes Absolute Auto 0.3 X10*3/uL (0.1-1.2); Monocytes Percent Auto 7.2 % (2-11); Neutrophils Absolute Auto 2.6 x10*3/uL (2.0-8.3); Neutrophils Percent Auto 60.6 % (45-73); Platelet Count 133 X10*3/uL (160-400); Red Blood Count 3.83 X10*6/uL (4.20-5.50); Red Cell Distribution Width 12.7 % (11.0-16.0); White Blood Count 4.3 X10*3/uL (4.8-10.8)
[2024-12-10 17:17] LABS: Alanine Aminotransferase 29 U/L (0-31); Albumin Level 4.4 g/dL (3.5-5.0); Alkaline Phosphatase 51 U/L (39-117); Anion Gap 12 (12-20); Aspartate Amino Transferase 27 U/L (5-31); Bilirubin Total 0.6 mg/dL (0.0-1.0); Blood Urea Nitrogen 11 mg/dL (9-16); Calcium 9.8 mg/dL (8.4-10.2); Carbon Dioxide 29 mmol/L (22-29); Chloride 103 mmol/L (96-108); Estimated Glomerular Filt Rate > 60; Glucose Random 142 mg/dL (60-115); Potassium 4.2 mmol/L (3.3-5.1); Sodium 140 mmol/L (135-145); Total Protein 7.9 g/dL (6.5-8.0)
[2024-12-10 17:23] LABS: Appearance Urine Clear; Color Urine Yellow; Glucose Urine UA Negative (Negative); Leukocyte Esterase Urine Negative (Negative); Nitrite Urine Negative (Negative); PH 6.5 (5.0-9.0); Specific Gravity - Urine <= 1.005 (1.005-1.025); Urine Blood Negative (Negative); Urine Ketones Negative (Negative); Urine Protein Negative (Neg-Trace)
--- OUTSIDE RECORDS SUMMARY | 2024-12-10 19:25 | XMS_ITS | Data Portability ---
Author Organization [facility] TRACI Clark, [id number] (CLOSED) Address [address] [place] [address] Care Team Providers Care Cook Helper Meat Name Role Phone GONZALES MAIER Primary Care Provider Assessment No assessment recorded. Plan of Treatment Reminders Order Date Submit Date Provider Last Modified By Organization Details Last Modified Time Details Appointments None recorded . Lab bacteria l vaginosi s + vaginiti s panel, vaginal 2017 018 [place] [facility] , [address], [place], [address], 8 13:18:19 streptoc occus group B, culture, unspecif ied specimen 2017 018 [place] [facility] , [address], [place], [address], 8 10:21:50 wet mount panel, vaginal fluid 2017 018 [email or web address] In-House Results, For Internal Use Only, Do Not Delete/merge, [id number] 8 11:13:41 bacteria l vaginosi s + vaginiti s panel, vaginal 2017 018 [place] [facility] , [address], [place], [address], 8 23:57:36 bacteria l vaginosi s + vaginiti s panel, vaginal 2017 018 [place] [facility] ([facility]) , [address], [place], [address], 8 13:07:16 Referral None recorded . Procedures None recorded . Surgeries None recorded . Imaging US, pelvis, complete - see prior outside sonogram s 2017 [id number], [address], [address], [place], [address], 8 14:40:27 Medication Orders Intraros a 6.5 mg vaginal insert 2017 018 INTERFACE [id number], [address], [place], [place], [id number], 8 12:14:11 Patient TargetsNo targets recorded. Patient Instructions Encounter Date Encounter Id Patient Instructions Last Modified By Organization Details Last Modified Time 10/26/2017 [id number] Repeat tumor markers and sonogram and obtain release of records from [facility] evaluation- not received as was not able to see Dr Kilgore. 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 I agree with the assessment of the gynecologic oncologist and recommend that she returns to be evaluated for surgical resection. The patient agrees and will be calling today to make a follow-up appointment and schedule surgery. No evidence of vaginitis on wet ever today, if panel does not show infection, may benefit from lactobacillus therapy as symptomatic for discharge. [email or web address] Not available 12/07/2017 13:33:35 03/15/2018 [id number] Will avoid estrogen creams because of pelvic mass pending surgery. [email or web address] Not available 03/15/2018 12:35:11 Reason for Referral None Reported. Results Created Date Observation Date Name Description Value Unit Range Abnormal Flag Note LastModifiedBy Organization Detail LastModifiedTime 12/08/19 18 12/07/2017 wet mount panel , vagin al fluid Unknown Analyte none Not Available In-Artem se Results For Internal Use Only, Do Not Delete/merge, 12/07/2017 11:12:27 12/08/19 18 12/07/2017 wet mount panel , vagin al fluid Unknown Analyte negati ve Not Available In-House Results For Internal Use Only, Do Not Delete/merge, 12/07/2017 11:12:27 12/08/19 18 12/07/2017 wet mount panel , vagin al fluid Unknown Analyte Negati ve Not Available In-House Results For Internal Use Only, Do Not Delete/merge, 12/07/2017 11:12:27 12/08/19 18 12/07/2017 wet mount panel , vagin al fluid Unknown Analyte Negati ve Not Available In-House Results For Internal Use Only, Do Not Delete/merge, 12/07/2017 11:12:27 12/08/19 18 12/07/2017 wet mount panel , vagin al fluid Unknown Analyte Presen t Not Available In-House Results For Internal Use Only, Do Not Delete/merge, 12/07/2017 11:12:27 12/08/19 18 12/07/2017 wet mount panel , vagin al fluid Unknown Analyte Rare Not Available In-Artem se Results For Internal Use Only, Do Not Delete/merge, 12/07/2017 11:12:27 12/08/19 18 12/07/2017 wet mount panel , vagin al fluid Unknown Analyte Absent Not Available In-Artem se Results For Internal Use Only, Do Not Delete/merge, 12/07/2017 11:12:27 12/08/19 18 12/07/2017 wet mount panel , vagin al fluid Unknown Analyte Negati ve Not Available In-House Results For Internal Use Only, Do Not Delete/merge, 12/07/2017 11:12:27 12/08/19 18 12/07/2017 wet mount panel , vagin al fluid Unknown Analyte Negati ve Not Available In-House Results For Internal Use Only, Do Not Delete/merge, 12/07/2017 11:12:27 10/26/19 18 10/31/2017 bacte rial vagin osis + vagin itis panel , vagin al trichomonas by multiplex PCR Not Detect ed normal SPECI MEN SOURC E: VAGIN ITIS/ VAGIN OSIS W/O PAP W/O HPV EXPAN DED, NOT PROVI DED CLINI [facility] INFOR STEPHANIE N: Provi ded Diagn osis Codes : N89.8 LMP: NOT PROVI DED MOLEC ULAR INTER PRETA TION: Resul ts favor Bacte rial Vagin osis (BV) MOLEC ULAR COMME NT: No Lacto bacil yareli DNA is detec marlen. Anaer obic bacte rial DNA (from G. vagin osito, and/o r A. vagin ae, Dontrells kathieer a, BVAB2 ) is detec marlen. Not Available [facility] ([facility]) [address], [place], [address], 10/31/2017 13:07:16 10/26/19 18 10/31/2017 bacte rial vagin osis + vagin itis panel , vagin al bailey genus Not Detect ed normal Not Available [facility] ([facility]) [address], [place], [address], 10/31/2017 13:07:16 10/26/19 18 10/31/2017 bacte rial vagin osis + vagin itis panel , vagin al C.albicans by PCR Not Detect ed normal Not Available [facility] ([facility]) [address], [place], [address], 10/31/2017 13:07:16 10/26/19 18 10/31/2017 bacte rial vagin osis + vagin itis panel , vagin al g. vaginalis by RT-PCR Detect ed abnormal Not Available [facility] ([facility]) [address], [place], [address], 10/31/2017 13:07:16 10/26/19 18 10/31/2017 bacte rial vagin osis + vagin itis panel , vagin al A. vaginalis by RT-PCR Not Detect ed normal Not Available [facility] ([facility]) [address], [place], [address], 10/31/2017 13:07:16 10/26/19 18 10/31/2017 bacte rial vagin osis + vagin itis panel , vagin al lactobacillu s (species) by PCR Not Detect ed abnormal Not Available [facility] ([facility]) [address], [place], [address], 10/31/2017 13:07:16 10/26/19 18 10/31/2017 bacte rial vagin osis + vagin itis panel , vagin al megasphaera type 1 by RT PCR Not Detect ed normal Not Available [facility] ([facility]) [address], [place], [address], 10/31/2017 13:07:16 10/26/19 18 10/31/2017 bacte rial vagin osis + vagin itis panel , vagin al bvab2 by RT-PCR Not Detect ed normal Not Available [facility] ([facility]) [address], [place], [address], 10/31/2017 13:07:16 10/26/19 18 10/31/2017 bacte rial vagin osis + vagin itis panel , vagin al lactobacillu s sp. log (cells/mL) <3.25 abnormal Not Available [facility] ([facility]) [address], [place], [address], 10/31/2017 13:07:16 10/26/19 18 10/31/2017 bacte rial vagin osis + vagin itis panel , vagin al g. vaginalis log (cells/mL) 3.25 - 5.25 abnormal Not Available [facility] ([facility]) [address], [place], [address], 10/31/2017 13:07:16 10/26/19 18 10/31/2017 bacte rial vagin osis + vagin itis panel , vagin al A. vaginalis log (cells/mL) <3.25 normal TRICH OMONA S BY MULTI PLEX PCR (1,5, 6) YUKI DA GENUS (2,3, 5,6) C.ALB ICANS BY PCR (2,3, 5,6) G. VAGIN OSITO BY RT-PC R (4,5, 7) A. VAGIN OSITO BY RT-PC R (4,5, 7) LACTO BACIL YARELI (SPEC IES) BY PCR (4,5, 7) MEGAS PHAER A TYPE 1 BY RT PCR (4,5, 7) BVAB2 BY RT-PC R (4,5, 7) LACTO BACIL YARELI SP. LOG (CELL S/mL) (4,5, 7) G. VAGIN OSITO LOG (CELL S/mL) (4,5, 7) A. VAGIN OSITO LOG (CELL S/ML) (4,5, 7) (1) This test is an in vitro test for the detec tion of sexua lly trans mitte d infec tions (STIs ) in clini cristian speci mens. The test utili zes ampli ficat ion of targe t DNA by the Polym erase Chain React ion (PCR) based on dual primi ng oligo nucle otide techn ology and detec ts STI DNA. (2) The commo n cause s of vulvo vagin al yuki diasi s inclu de Yuki da albic ans, Yuki da tropi calis , Yuki da glabr fidel, Yuki da parap cooper is, Yuki da dubli niens is, Yuki da gerry i and a few other speci es that colon ize the vagin a. In sever al studi es, non-a lbica ns speci es such as tropi calis , gerry i and glabr fidel have demon strat ed resis tance to fluco nazol e and other relat ed azole antif ungal s. Using horacio rable data from anoth er assay (BD Affir m VPIII micro bial ident ifica tion test) , molec ular testi ng using liqui d-bas ed cytol ogy speci mens in gener al for Yuki da may not be as sensi tive as cultu re or visua l ident ifica tion. (3) This test utili zes ampli ficat ion of targe t DNA for Yuki da genus and selec marlen Yuik da speci es by Polym erase Chain React ion (PCR) . The limit of detec tion in the genus panel is 100 copie s for Yuki da genus and for C. albic ans. The limit of detec tion in the speci es panel is 10 copie s for C. albic ans, C. dubli niens is, C. glabr fidel, C. gerry i, C. parap cooper is, and C. tropi calis . Sacch aromy rachele cerev isiae share s signi fican t homol ogy with Yuki da genus and may cross react and give a presu mptiv e posit clive resul t; howev er, S. cerev isiae is rarel y seen in the cervi covag inal micro biome , but may be seen in the GI tract . Sacch aromy rachele cerev isiae may have an inter ferin g react ion with C. albic ans in the speci es panel , resul ting in lower ampli ficat ion of the C. albic ans. (4) This assay utili zes quant itati ve real time PCR (mult iple detec tion temsuha gómez es techn ollucía , Gallo( TM)) in liqui d cytol ogy speci mens to quant norma the level s of nucle ic acid of Lacto bacil yareli speci es, G. vagin osito and A. vagin ae, and also detec ts nucle ic acid from sever al oblig ate anaer obes assoc iated with Bacte rial Vagin osis (BV). (5) This test was evalu ated and its perfo rmanc e patricia cteri stics deter mined by [facility]. It has not been clear ed or appro kevin by the U.S. Food and Drug Admin istra tion. The FDA has deter mined that such clear ance or appro lety is not neces lon. [facility] is certi fied under the Clini cristian Labor atory Impro vemen t Act of 1987 (CLIA ) as quali fied to perfo rm high compl exity clini cristian testi ng. (6) Resul ts shoul d be inter prete d toget her with past and curre nt clini cristian and labor atory data. (7) Resul ts shoul d be inter prete d in light of curre nt and past labor atory data and sympt omato logy. Not Available [facility] ([facility]) [address], [place], [address], 10/31/2017 13:07:16 12/08/19 18 12/11/2017 bacte rial vagin osis + vagin itis panel , vagin al trichomonas by multiplex PCR Not Detect ed normal SPECI MEN SOURC E: VAGIN ITIS/ VAGIN OSIS W/O PAP W/O HPV EXPAN DED CLINI CRISTIAN INFOR MATIO N: Provi ded Diagn osis Codes : N89.8 LMP: NOT PROVI DED MOLEC ULAR INTER PRETA TION: Resul ts do not favor Bacte rial Vagin osis (BV) MOLEC ULAR COMME NT: No Lacto bacil yareli or anaer obic bacte rial DNA (from Neo Barajas ae, Lucrecia luciano a, BVAB2 ) is detec marlen. This may be due to an inter ferin g subst ance, aerob ic vagin itis, atrop hic vagin itis or postm enopa usal statu s, desqu amati ve infla mmato ry vagin itis, or recen t post- douch ing of the vagin a. Not Available [facility] ([facility]) [address], [place], [address], 12/11/2017 23:57:36 12/08/19 18 12/11/2017 bacte rial vagin osis + vagin itis panel , vagin al bailey genus Not Detect ed normal Not Available [facility] ([facility]) [address], [place], [address], 12/11/2017 23:57:36 12/08/19 18 12/11/2017 bacte rial vagin osis + vagin itis panel , vagin al C.albicans by PCR Not Detect ed normal Not Available [facility] ([facility]) [address], [place], [address], 12/11/2017 23:57:36 12/08/19 18 12/11/2017 bacte rial vagin osis + vagin itis panel , vagin al g. vaginalis by RT-PCR Not Detect ed normal Not Available [facility] ([facility]) [address], [place], [address], 12/11/2017 23:57:36 12/08/19 18 12/11/2017 bacte rial vagin osis + vagin itis panel , vagin al A. vaginalis by RT-PCR Not Detect ed normal Not Available [facility] ([facility]) [address], [place], [address], 12/11/2017 23:57:36 12/08/19 18 12/11/2017 bacte rial vagin osis + vagin itis panel , vagin al lactobacillu s (species) by PCR Not Detect ed abnormal Not Available [facility] ([facility]) [address], [place], [address], 12/11/2017 23:57:36 12/08/19 18 12/11/2017 bacte rial vagin osis + vagin itis panel , vagin al megasphaera type 1 by RT PCR Not Detect ed normal Not Available [facility] ([facility]) [address], [place], [address], 12/11/2017 23:57:36 12/08/19 18 12/11/2017 bacte rial vagin osis + vagin itis panel , vagin al bvab2 by RT-PCR Not Detect ed normal Not Available [facility] ([facility]) [address], [place], [address], 12/11/2017 23:57:36 12/08/19 18 12/11/2017 bacte rial vagin osis + vagin itis panel , vagin al lactobacillu s sp. log (cells/mL) <3.25 abnormal Not Available [facility] ([facility]) [address], [place], [address], 12/11/2017 23:57:36 12/08/19 18 12/11/2017 bacte rial vagin osis + vagin itis panel , vagin al g. vaginalis log (cells/mL) <3.25 normal Not Available [facility] ([facility]) [address], [place], [address], 12/11/2017 23:57:36 12/08/19 18 12/11/2017 bacte rial vagin osis + vagin itis panel , vagin al A. vaginalis log (cells/mL) <3.25 normal TRICH OMONA S BY MULTI PLEX PCR (1,5, 6) YUKI DA GENUS (2,3, 5,6) C.ALB ICANS BY PCR (2,3, 5,6) G. VAGIN OSITO BY RT-PC R (4,5, 7) A. VAGIN OSITO BY RT-PC R (4,5, 7) LACTO BACIL YARELI (SPEC IES) BY PCR (4,5, 7) MEGAS PHAER A TYPE 1 BY RT PCR (4,5, 7) BVAB2 BY RT-PC R (4,5, 7) LACTO BACIL YARELI SP. LOG (CELL S/mL) (4,5, 7) G. VAGIN OSITO LOG (CELL S/mL) (4,5, 7) A. VAGIN OSITO LOG (CELL S/ML) (4,5, 7) (1) This test is an in vitro test for the detec tion of sexua lly trans mitte d infec tions (STIs ) in clini cristian speci mens. The test utili zes ampli ficat ion of targe t DNA by the Polym erase Chain React ion (PCR) based on dual primi ng oligo nucle otide techn ology and detec ts STI DNA. (2) The commo n cause s of vulvo vagin al yuki diasi s inclu de Yuki da albic ans, Yuki da tropi calis , Yuki da glabr fidel, Yuki da parap cooper is, Yuki da dubli niens is, Yuki da gerry i and a few other speci es that colon ize the vagin a. In sever al studi es, non-a lbica ns speci es such as tropi calis , gerry i and glabr fidel have demon strat ed resis tance to fluco nazol e and other relat ed azole antif ungal s. Using horacio rable data from anoth er assay (BD Affir m VPIII micro bial ident ifica tion test) , molec ular testi ng using liqui d-bas ed cytol ogy speci mens in gener al for Yuki da may not be as sensi tive as cultu re or visua l ident ifica tion. (3) This test utili zes ampli ficat ion of targe t DNA for Yuki da genus and selec marlen Yuki da speci es by Polym erase Chain React ion (PCR) . The limit of detec tion in the genus panel is 100 copie s for Yuki da genus and for C. albic ans. The limit of detec tion in the speci es panel is 10 copie s for C. albic ans, C. dubli niens is, C. glabr fidel, C. gerry i, C. parap cooper is, and C. tropi calis . Sacch aromy rachele cerev isiae share s signi fican t homol ogy with Yuki da genus and may cross react and give a presu mptiv e posit clive resul t; howev er, S. cerev isiae is rarel y seen in the cervi covag inal micro biome , but may be seen in the GI tract . Sacch aromy rachele cerev isiae may have an inter ferin g react ion with C. albic ans in the speci es panel , resul ting in lower ampli ficat ion of the C. albic ans. (4) This assay utili zes quant itati ve real time PCR (mult iple detec tion temsuha gómez es techn Gallo piña( TM)) in liqui d cytol ogy speci mens to quant norma the level s of nucle ic acid of Lacto bacil yareli speci es, G. vagin osito and A. vagin ae, and also detec ts nucle ic acid from sever al oblig ate anaer obes assoc iated with Bacte rial Vagin osis (BV). (5) This test was evalu ated and its perfo rmanc e patricia cteri stics deter mined by [facility]. It has not been clear ed or appro kevin by the U.S. Food and Drug Admin istra tion. The FDA has deter mined that such clear ance or appro lety is not neces lon. [facility] is certi fied under the Clini cristian Labor atory Impro vemen t Act of 1987 (CLIA ) as quali fied to perfo rm high compl exity clini cristian testi ng. (6) Resul ts shoul d be inter prete d toget her with past and curre nt clini cristian and labor atory data. (7) Resul ts shoul d be inter prete d in light of curre nt and past labor atory data and sympt omato logy. Not Available [facility] ([facility]) [address], [place], [address], 12/11/2017 23:57:36 03/15/20 18 03/19/2018 strep tococ cus group B, cultu re, unspe cifie d speci men culture, genital (strep B) POSITI VE negati ve abnormal SITE: GENIT AL ORGAN ISM #1: POSIT CLIVE FOR GROWT H OF STREP TOCOC CUS AGALA CTIAE (GROU P B) FOR BETA HEMOL YTIC STREP TOCOC CUS, PENIC ILLIN IS A SURRO GATE WHEN USED FOR APPRO KEVIN INDIC ATION S FOR AMPIC ILLIN , AMOXI CILLI N, AMOXI CILLI N-CLA VULAN IC ACID, AMPIC ILLIN -SULB ACTAM , CEFAZ BRANDON, CEFEP BOLA, CEFTA ROLIN E, CEPHR ADINE , CEPHA LOTHI N, CEFOT AXIME , CEFTR IAXON E, CEFTI ZOXIM E, IMIPE NEM, ERTAP ENEM, AND MEROP ENEM. ERYTH ROMYC IN AND CLIND AMYCI N ARE TESTE D TO DETEC T INDUC IBLE RESIS TANCE TO CLIND AMYCI N (DTES T) BUT ONLY CLIND AMYCI N SHOUL D BE REPOR MARLEN. STREP TOCOC CUS AGALA CTIAE (GROU P B) Drug GUILHERME Inter ps CLIND AMYCI N 0.062 5 S LEVOF LOXAC IN <=0.5 S PENIC ILLIN <=0.0 3125 S VANCO MYCIN 0.5 S Cultu re Comme nt: ONLY AMPIC ILLIN , PENIC ILLIN , CEFAZ BRANDON, CLIND AMYCI N (NON- URINE ), AND VANCO MYCIN ARE SPECI FICAL LY RECOM SUDEEP D FOR TREAT MENT IN PREGN ANT WOMEN FOR GBS COLON IZATI ON. NO PENIC ILLIN ALLER GY: THERA PY- PENIC ILLIN PENIC ILLIN ALLER GIC, LOW RISK FOR ANAPH YLAXI S: THERA PY- CEFAZ BRANDON PENIC ILLIN ALLER GIC, HIGH RISK FOR ANAPH YLAXI S: THERA PY- CLIND AMYCI N, NON-U RINE (IF SENSI TIVE) ; VANCO MYCIN (IF CLIND AMYCI N IS RESIS TANT) Not Available [facility] ([facility]) [address], [place], [address], 03/19/2018 10:21:50 03/15/20 18 03/19/2018 bacte rial vagin osis + vagin itis panel , vagin al trichomonas by multiplex PCR Not Detect ed normal SPECI MEN SOURC E: VAGIN ITIS/ VAGIN OSIS W/O PAP W/O HPV EXPAN DED, NOT PROVI DED CLINI CRISTIAN INFOR MATIO N: Provi ded Diagn osis Codes : N89.8 LMP: NOT PROVI DED MOLEC ULAR INTER PRETA TION: Resul ts favor Bacte rial Vagin osis (BV) MOLEC ULAR COMME NT: No Lacto bacil yareli DNA is detec marlen. Anaer obic bacte rial DNA (from G. vagin osito, and/o r A. vagin ae, Megas phaer a, BVAB2 ) is detec marlen. Not Available [facility] ([facility]) [address], [place], [address], 03/19/2018 13:18:19 03/15/20 18 03/19/2018 bacte rial vagin osis + vagin itis panel , vagin al bailey genus Not Detect ed normal Not Available [facility] ([facility]) [address], [place], [address], 03/19/2018 13:18:19 03/15/20 18 03/19/2018 bacte rial vagin osis + vagin itis panel , vagin al C.albicans by PCR Not Detect ed normal Not Available [facility] ([facility]) [address], [place], [address], 03/19/2018 13:18:19 03/15/20 18 03/19/2018 bacte rial vagin osis + vagin itis panel , vagin al g. vaginalis by RT-PCR Detect ed abnormal Not Available [facility] ([facility]) [address], [place], [address], 03/19/2018 13:18:19 03/15/20 18 03/19/2018 bacte rial vagin osis + vagin itis panel , vagin al A. vaginalis by RT-PCR Not Detect ed normal Not Available [facility] ([facility]) [address], [place], [address], 03/19/2018 13:18:19 03/15/20 18 03/19/2018 bacte rial vagin osis + vagin itis panel , vagin al lactobacillu s (species) by PCR Not Detect ed abnormal Not Available [facility] ([facility]) [address], [place], [address], 03/19/2018 13:18:19 03/15/20 18 03/19/2018 bacte rial vagin osis + vagin itis panel , vagin al megasphaera type 1 by RT PCR Not Detect ed normal Not Available [facility] ([facility]) [address], [place], [address], 03/19/2018 13:18:19 03/15/20 18 03/19/2018 bacte rial vagin osis + vagin itis panel , vagin al bvab2 by RT-PCR Not Detect ed normal Not Available [facility] ([facility]) [address], [place], [address], 03/19/2018 13:18:19 03/15/20 18 03/19/2018 bacte rial vagin osis + vagin itis panel , vagin al lactobacillu s sp. log (cells/mL) <3.25 abnormal Not Available [facility] ([facility]) [address], [place], [address], 03/19/2018 13:18:19 03/15/20 18 03/19/2018 bacte rial vagin osis + vagin itis panel , vagin al g. vaginalis log (cells/mL) 3.25 - 5.25 abnormal Not Available [facility] ([facility]) [address], [place], [address], 03/19/2018 13:18:19 03/15/20 18 03/19/2018 bacte rial vagin osis + vagin itis panel , vagin al A. vaginalis log (cells/mL) <3.25 normal TRICH OMONA S BY MULTI PLEX PCR (1,5, 6) YUKI DA GENUS (2,3, 5,6) C.ALB ICANS BY PCR (2,3, 5,6) G. VAGIN OSTIO BY RT-PC R (4,5, 7) A. VAGIN OSITO BY RT-PC R (4,5, 7) LACTO BACIL YARELI (SPEC IES) BY PCR (4,5, 7) MEGAS PHAER A TYPE 1 BY RT PCR (4,5, 7) BVAB2 BY RT-PC R (4,5, 7) LACTO BACIL YARELI SP. LOG (CELL S/mL) (4,5, 7) G. VAGIN OSITO LOG (CELL S/mL) (4,5, 7) A. VAGIN OSITO LOG (CELL S/ML) (4,5, 7) (1) This test is an in vitro test for the detec tion of sexua lly trans mitte d infec tions (STIs ) in clini cristian speci mens. The test utili zes ampli ficat ion of targe t DNA by the Polym erase Chain React ion (PCR) based on dual primi ng oligo nucle otide techn ology and detec ts STI DNA. (2) The commo n cause s of vulvo vagin al yuki diasi s inclu de Yuki da albic ans, Yuki da tropi calis , Yuki da glabr fidel, Yuki da parap cooper is, Yuki da dubli niens is, Yuki da gerry i and a few other speci es that colon ize the vagin a. In sever al studi es, non-a lbica ns speci es such as tropi calis , gerry i and glabr fidel have demon strat ed resis tance to fluco nazol e and other relat ed azole antif ungal s. Using horacio rable data from anoth er assay (BD Affir m VPIII micro bial ident ifica tion test) , molec ular testi ng using liqui d-bas ed cytol ogy speci mens in gener al for Yuki da may not be as sensi tive as cultu re or visua l ident ifica tion. (3) This test utili zes ampli ficat ion of targe t DNA for Yuki da genus and selec marlen Yuki da speci es by Polym erase Chain React ion (PCR) . The limit of detec tion in the genus panel is 100 copie s for Yuki da genus and for C. albic ans. The limit of detec tion in the speci es panel is 10 copie s for C. albic ans, C. dubli niens is, C. glabr fidel, C. gerry i, C. parap cooper is, and C. tropi calis . Sacch aromy rachele cerev isiae share s signi fican t homol ogy with Yuki da genus and may cross react and give a presu mptiv e posit clive resul t; howev er, S. cerev isiae is rarel y seen in the cervi covag inal micro biome , but may be seen in the GI tract . Sacch aromy rachele cerev isiae may have an inter ferin g react ion with C. albic ans in the speci es panel , resul ting in lower ampli ficat ion of the C. albic ans. (4) This assay utili zes quant itati ve real time PCR (mult iple detec tion tempe rico es techn Gallo piña( TM)) in liqui d cytol ogy speci mens to quant norma the level s of nucle ic acid of Lacto bacil yareli speci es, G. vagin osito and A. vagin ae, and also detec ts nucle ic acid from sever al oblig ate anaer obes assoc iated with Bacte rial Vagin osis (BV). (5) This test was evalu ated and its perfo rmanc e patricia cteri stics deter mined by [facility]. It has not been clear ed or appro kevin by the U.S. Food and Drug Admin istra tion. The FDA has deter mined that such clear ance or appro lety is not neces lon. [facility] is certi fied under the Clini cristian Labor atory Impro vemen t Act of 1987 (CLIA ) as quali fied to perfo rm high compl exity clini cristian testi ng. (6) Resul ts shoul d be inter prete d toget her with past and curre nt clini cristian and labor atory data. (7) Resul ts shoul d be inter prete d in light of curre nt and past labor atory data and sympt omato logy. Not Available [facility] ([facility]) [address], [place], [address], 03/19/2018 13:18:19 10/26/19 18 01/27/2017 , luly ramos No observ ation record ed. BARCODE Not Available 2017 14:47:40 10/26/19 18 10/13/2015 , luly s No observ ation record ed. BARCODE Not Available 2017 14:47:40 12/08/19 18 12/07/2017 shawna image s No observ ation record ed. [email or web address] [address], [place], [address], 12/07/2017 10:58:18 Result Notes None recorded. Problems Name Problem SNOMED Code Status Onset Date Resolution Date Notes Provider Name and Address Organization Details Recorded Time Uterine leiomyoma 51579623 Active 018 Tayler Shaver (TERMED) [facility] 8 13:44:39 Cyst of ovary 03830995 Active 018 Tayler Shaver (TERMED) [facility] 8 13:44:57 Problem Notes None recorded. Procedures Surgical History Date Name Laterality Status Provider Name and Address Organization Details Recorded Time 12/08/19 18 U/S NEUROSURGICAL PHYSICIAN ASSISTANT TRANSABDOMINAL AND TRANSVAGINAL ([facility]) completed JODEE BURKS [facility] [place][note 2][address] [facility], [address], [place], [address], [facility] 12/07/2017 13:28:24 10/02/19 17 Date of Last Mammogram completed Tayler Shaver (TERMED) [facility] 10/26/2017 13:45:26 10/02/19 17 Date of Last Pap Smear completed Tayler Shaver (TERMED) [facility] 10/26/2017 13:45:50 Imaging Results Imaging Date Name Status LastModified by Organiz ation Details LastModified Time 01/27/2017 US, pelvis completed BAR[facility] Information no t available 10/26/2017 14:47:40 10/13/2015 US, pelvis completed BARCODE Information no t available 10/26/2017 14:47:40 12/07/2017 shawna images completed [email or web address] [address], [place], [address], 12/07/2017 10:58:18 Procedure Notes None recorded. Medical Equipment None Reported. Allergies No known drug allergies Medications Name Sig Start Date Stop Date Status Note LastModified by Organization Details LastModified Time metronidazo le 0.75 % (37.5 mg/5 gram) vaginal gel Insert 1 applicato rful every day by vaginal route at bedtime for 5 days. 12/07 completed Not Available Not Available Not Available methocarbam ol 750 mg tablet 10/26 completed Not Available Not Available Not Available methylpredn isolone 4 mg tablets in a dose pack 10/26 completed Not Available Not Available Not Available biotin active Not Available Not Availa ble Not Available CoQ10 active Not Available Not Availa ble Not Available black cohosh active Not Available Not Available Not Available Multi For Her active Not Available Not Available Not Available Intrarosa 6.5 mg vaginal insert Insert 1 vaginal insert every day by vaginal route. 2017 active Not Available Not Available Not Avai lable Vitals Date Recorded Body weight Body mass index (BMI) Body height Systolic blood pressure Diastolic blood pressure Provider Name and Address Organization Details Last Updated DateTime 10/26/2017 08699.04 g 24.5 kg/m2 167.64 cm 123 mm[Hg] 84 mm[Hg] Taylersa Shaver (TERMED) [facility] 8 13:43:12 Date Recorded Body height Body mass index (BMI) Body weight Systolic blood pressure Diastolic blood pressure Provider Name and Address Organization Details Last Updated DateTime 12/07/2017 167.64 cm 23.6 kg/m2 11194.49 g 129 mm[Hg] 79 mm[Hg] Tayler Shaver (TERMED) [facility] 8 09:56:18 Date Recorded Body height Body mass index (BMI) Body weight Systolic blood pressure Diastolic blood pressure Provider Name and Address Organization Details Last Updated DateTime 03/15/2018 167.64 cm 24.7 kg/m2 29817.63 g 120 mm[Hg] 69 mm[Hg] Taylersa Sahver (TERMED) [facility] 8 11:36:11 Social History Question Answer Notes LastModified by Organizat ion Details LastModified Time Tobacco Smoking Status Never Smoker Erendira Martinez (TERMED) [facility] 10/24/2017 14:11:45 What Is Your Level Of Alcohol Consumption? Moderate [email or web address] Information not available 10/24/2017 Is Blood Transfusion Acceptable In An Emergency? Yes [email or web address] Information not available 10/26/2017 What Is Your Level Of Caffeine Consumption? Occasional [email or web address] Information not available 10/26/2017 What Type Of Diet Are You Following? 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 0 Information not available 10/26/2017 Illicit Drugs? No [email or web address] Informatio n not available 10/26/2017 History Of Domestic Violence No [email or web address] Information not available 10/26/2017 [employer] [email or web address] Information no t available 10/26/2017 Marital Status [email or web address] Informatio n not available 10/26/2017 What Was The Date Of Your Most Recent Tobacco Screening? 03/15/2018 Information not available 04/25/2019 Seat Belts Used Routinely Yes [email or web address] Information not available 10/26/2017 Do You Have Symptoms Associated With Zika Virus (fever, Rash, Joint Pain, Or Conjunctivitis) ? No [email or web address] Information not available 10/26/2017 Have You Recently (within The Last 12 Weeks, Or During A Current ) Traveled To Or Lived In A Zika-affected Area? No [email or web address] Information not available 10/26/2017 Sex: Unknown Functional Status Question Answer Note LastModified by Organizat ion Details LastModified Time Urinary incontinence assessment performed? No [email or web address] Information not available 10/26/2017 What is your exercise level? Moderate [email or web address] Information not available 10/26/2017 Mental Status None recorded. Family History Relationship Description Onset Age of this Age Resolved Age Notes LastModified by Organization Details LastModified Time Mother Hypertensive disorder [email or web address] Not available 10/24 14:09:46 Mother Diabetes mellitus [email or web address] Not available 10/24 14:10:06 Sister Uterine leiomyoma 1/2 sister luis [email or web address] Not available 10/26/2017 14:06:02 Medical History Condition Response Neurology- Stroke/TIA N Dermatology-Acne N Endocrinology-Other N Hematology-Anemia N Neurology- Seizures/Epilepsy N Ortho-Fractures N Psych- PMS/PMDD N Pulmonary-Other N Psych- Anxiety Disorder N GI- Reflux/Ulcers N Rheumatology-Arthritis N ID-Chicken Pox/Shingles N Cancer- Skin N Cardiology- Heart Disease N GI- Irritable Bowel Syndrome N ID-HIV N GI- Colon Polyps N Endocrinology- Osteopenia N ID-Other N Psych- Eating Disorder N Hematology-Blood Transfusion N Pulmonary- Asthma N Urology- Hematuria (Blood in Urine) N Pulmonary- Sleep Apnea N Neurology- Dementia N Urology- Interstitial Cystitis N GI- Hemorrhoids N Hematology-Blood Clotting Disorder/Facto r V Leiden N Neurology-Other N Endocrinology- Osteoporosis N Psych- Depression N Hematology-Other N Dermatology-Eczema/Psoriasis N Dermatology-Other N Ortho-Chronic Back Pain N Rheumatology-Autoimmune Disease N Cancer- Ovary N Cardiology- High Cholesterol N Cardiology- Heart Arrhythmia N Hematology-DVT/Pulmonary Embolism N Psych-other N Cancer- Breast N Psych- ADD N GI- Liver Disease/Hepatitis N Weight Management/Obesity N Cancer- Colon N ENT- Hearing Loss N Cancer- Vulvar N Cancer- Vaginal N GI-Other N Neurology- Headaches/Migraines N Hematology-Bleeding Disorder N Endocrinology- Diabetes N Cancer- Cervical N Pulmonary- COPD/Emphysema N GI- Crohn's/Ulcerative Colitis N Psych- Bipolar Disease N Cardiology- High Blood Pressure N Cancer- Lung N Cancer- Endometrial/Uterine N Eyes- Vision Loss/Macular Degeneration N ENT-Other N Rheumatology-Other N Urology- Stones N ID-MRSA N Cancer-Other N GI- Gallbladder Disease N Gynecological History Statement/Question Response Total lifetime partners Less than 5 Date of Last Mammogram 10/02/2016 Date of LMP 01/30/2018 HPV Test Negative Post Menopausal Hormone Use Never Sexual orientation Heterosexual History of Endometriosis N History of Sexually Transmitted Infectio n N History of Infertility N HPV Vaccine Not applicable History of Recurrent Ovarian Cyst Y History of Fibroids Y History of PCOS N History of Dysmenorrhea N Age at Menarche 16 History of Cervical Dysplasia N Diethylstilbestrol (VEGA) exp osed daughters of women who took VEGA during ? 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 Uterine leiomyoma 682737 05 D25.9 Vaginal discharge 461854 006 N89.8 [id number] JODEE SERVINIZ [id number] [address] [place] [address] 12/07/2017 09:26:30 12/07/2017 11:08:25 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 - pending repeat tumor markers Vaginal discharge 825105 006 N89.8 [id number] JODEE SERVINIZ [id number] [address] [place] [address] 03/15/2018 11:12:50 03/15/2018 12:30:38 Vaginal discharge 556377944 N89.8 possibly due to atrophy Atrophic vaginitis 66388 000 N95.2 Health Concerns Section Related Observation LastModified by Organization Detai ls LastModified Time None Recorded Concern Status LastModified by Organization Details LastModified Time None Recorded Advance Directives Directive None Recorded Payers Encounter Date Sequence Insurance Name Policy Number Policy Allison Covered Member ID Allison Member ID Guarantor Name 10/26/2017 1 [facility] [id number] Aysha D White [id number] Aysha White 12/07/2017 1 [facility] [id number] Aysha D White [id number] Aysha White 03/15/2018 1 [facility] [id number] Aysha D White [id number] Aysha White Notes Date Note Type Note Provider Name and Address Organization Details Recorded Time 10/26/2017 text/html New onset of yellow/arias vaginal d/c from 7 to 10-25-17 with no associated bleeding, burning, itching or discomfort. No dysuria, frequency, pelvic or abd pain. Evaluation for pelvic cystic mass with Dr Francheska Sauer was not received (requested today). JODEE C BURKS 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 She so gynecologic oncologist but did not follow-up and surgery was recommended. Repeat tumor markers were done an outside facility and results are still pending. She is also having recurrence of vaginal discharge and was treated for bacterial vaginosis with MetroGel. Despite treatment, she continued to have a arias yellow vaginal discharge that is not causing any symptoms of itching or irritation and has no foul smell. JODEE BURKS [address] [facility], [address], [place], [address], [facility] 12/07/2017 13:33:46 03/15/2018 text/html Patient presents for continued symptoms of vaginal discharge. She has a yellow, thin and watery daily vaginal discharge that requires wearing a thin pad and is not associated with any symptoms. She denies foul odor, itching, burning, bleeding, irritation, dysuria or frequency, pelvic or abdominal pain. She is still pending surgery for pelvic mass but wishes to wait till July and has been seen by gynecologic oncologist. JODEE BURKS [address] [facility], [address], [place], [address], [facility] 03/15/2018 12:37:49 OBGyn Episode No OBEpisode recorded.
--- OUTSIDE RECORDS SUMMARY | 2024-12-10 19:25 | XMS_ITS | Data Portability ---
Author Organization [facility], [address] [place] [address] Assessment No assessment recorded. Plan of Treatment Reminders Order Date Submit Date Provider Last Modified By Organization Details Last Modified Time Details Appointments None recorded. Lab Mycobacteri um tuberculosi s stimulated gamma interferon, qual, blood 2022 023 JIM [facility] ([facility], [address], [place], [address], 3 16:11:25 Referral None recorded. Procedures None recorded. Surgeries None recorded. Imaging XR, chest, 2 view 2023 024 [email or web address] [facility], [address] [place], [address], 4 13:50:15 Medication Orders None recorded. Patient TargetsNo targets recorded. Patient Instructions Encounter Date Encounter Id Patient Instructions Last Modified By Organization Details Last Modified Time 04/16/2024 [id number] specimen collect ion & handling* JIM Not available 04/16/2024 13:46:04 Please follow up with Primary DR regarding your results. Proceed to the ER for new or worsening symptoms Non-Pharmacological treatment for coughin. Throat lozenges 2. Hot tea 3. Honey 4. Smoking cessation 5. Avoidance of secondhand smoke. Pharmacological Treatment: 1. Robatussin or Guafenasin 2. Antihistamines 3. Dextromethoraphen I would plan on being seen again if any of the following symptoms develop: 1. Fever (100.5) 2. Shortness of breath 3. Wheezing 4. Worsening Cough. I would go to the ER if you develop: 1. Severe Shortness of breath 2. Chest Pain 3. Wheezing 4. Coughing up Blood [email or web address] Not available 04/16/2024 13:45:54 Reason for Referral None Reported. Results Created Date Observation Date Name Description Value Unit Range Abnormal Flag Note LastModifiedBy Organization Detail LastModifiedTime 10/04/1910/06/2022 QUANT IFERO N-TB GOLD PLUS quantiferon incubation INCUBA TION PERFOR MED. Not Available [facility] ([facility]) [address] [facility], [place], [address], 10/06/2022 16:11:25 10/04/19 23 10/06/2022 QUANT IFERO N-TB GOLD PLUS quantiferon criteria COMMEN T Quant iFERO N-TB Gold Plus is a quali tativ e indir ect test for M tuber culos is infec tion (incl uding disea se) and is inten ded for use in conju nctio n with risk asses sment , radio graph y, and other medic al and diagn ostic evalu ation s. The Quant iFERO N-TB Gold Plus resul t is deter mined by subtr actin g the Nil value from eithe r TB antig en (Ag) value . The Mitog en tube serve s as a contr ol for the test. Not Available [facility] ([facility]) [address] [facility], [place], [address], 10/06/2022 16:11:25 10/04/19 23 10/06/2022 QUANT IFERO N-TB GOLD PLUS quantiferon TB1 Ag value 0.10 IU/mL Not Available [facility] ([facility]) [address] [place], [address], 10/06/2022 16:11:25 10/04/19 23 10/06/2022 QUANT IFERO N-TB GOLD PLUS quantiferon TB2 Ag value 0.10 IU/mL Not Available [facility] ([facility]) [address] [place], [address], 10/06/2022 16:11:25 10/04/19 23 10/06/2022 QUANT IFERO N-TB GOLD PLUS quantiferon nil value 0.06 IU/mL Not Available [facility] ([facility]) [address] [place], [address], 10/06/2022 16:11:25 10/04/19 23 10/06/2022 QUANT IFERO N-TB GOLD PLUS quantiferon mitogen value >10.00 IU/mL Not Available [facility] ([facility]) [address] [facility], [place], [address], 10/06/2022 16:11:25 10/04/19 23 10/06/2022 QUANT IFERO N-TB GOLD PLUS quantiferon- TB gold plus NEGATI VE negati ve No respo nse to M tuber culos is antig ens detec rocío. Infec tion with M tuber culos is is unlik chidi, but high risk indiv idual s shoul d be consi dered for addit ional testi ng (ATS/ IDSA/ CDC Clini cristian Pract ice Guide lines , 2017) . The refer ence range is an Antig en minus Nil resul t of <0.35 IU/mL . Chemi lumin escen ce immun oassa y metho dolog y Not Available [facility] ([facility]) [address] [place], [address], 10/06/2022 16:11:25 04/16/20 24 04/17/2024 CBC WITH DIFFE RENTI AL/PL ATELE T WBC 4.6 x10e3 /uL 3.4-10 .8 normal Not Available [facility] ([facility]) [address] [place], [address], 04/17/2024 08:08:19 04/16/20 24 04/17/2024 CBC WITH DIFFE RENTI AL/PL ATELE T RBC 4.21 x10e6 /uL 3.77-5 .28 normal Not Available [facility] ([facility]) [address] [place], [address], 04/17/2024 08:08:19 04/16/20 24 04/17/2024 CBC WITH DIFFE RENTI AL/PL ATELE T hemoglobin 12.7 g/dL 11.1-1 5.9 normal Not Available [facility] ([facility]) [address] [facility], [place], [address], 04/17/2024 08:08:19 04/16/20 24 04/17/2024 CBC WITH DIFFE RENTI AL/PL ATELE T hematocrit 39.6 % 34.0-4 6.6 normal Not Available [facility] ([facility]) [address] [place], [address], 04/17/2024 08:08:19 04/16/20 24 04/17/2024 CBC WITH DIFFE RENTI AL/PL ATELE T MCV 94 fL 79-97 normal Not Available [facility] ([facility]) [address] [place], [address], 04/17/2024 08:08:19 04/16/20 24 04/17/2024 CBC WITH DIFFE RENTI AL/PL ATELE T MCH 30.2 pg 26.6-3 3.0 normal Not Available [facility] ([facility]) [address] [place], [address], 04/17/2024 08:08:19 04/16/20 24 04/17/2024 CBC WITH DIFFE RENTI AL/PL ATELE T MCHC 32.1 g/dL 31.5-3 5.7 normal Not Available [facility] ([facility]) [address] [place], [address], 04/17/2024 08:08:19 04/16/20 24 04/17/2024 CBC WITH DIFFE RENTI AL/PL ATELE T RDW 13.3 % 11.7-1 5.4 Not Available [facility] ([facility]) [address] [place], [address], 04/17/2024 08:08:19 04/16/20 24 04/17/2024 CBC WITH DIFFE RENTI AL/PL ATELE T platelets 163 x10e3 /uL 150-45 0 normal Not Available [facility] ([facility]) [address] [facility], [place], [address], 04/17/2024 08:08:19 04/16/20 24 04/17/2024 CBC WITH DIFFE RENTI AL/PL ATELE T neutrophils 66 % not estab. normal Not Available [facility] ([facility]) [address] [facility], [place], [address], 04/17/2024 08:08:19 04/16/20 24 04/17/2024 CBC WITH DIFFE RENTI AL/PL ATELE T lymphs 24 % not estab. normal Not Available [facility] ([facility]) [address] [facility], [place], [address], 04/17/2024 08:08:19 04/16/20 24 04/17/2024 CBC WITH DIFFE RENTI AL/PL ATELE T monocytes 8 % not estab. normal Not Available [facility] ([facility]) [address] [facility], [place], [address], 04/17/2024 08:08:19 04/16/20 24 04/17/2024 CBC WITH DIFFE RENTI AL/PL ATELE T eos 1 % not estab. normal Not Available [facility] ([facility]) [address] [facility], [place], [address], 04/17/2024 08:08:19 04/16/20 24 04/17/2024 CBC WITH DIFFE RENTI AL/PL ATELE T basos 1 % not estab. normal Not Available [facility] ([facility]) [address] [facility], [place], [address], 04/17/2024 08:08:19 04/16/20 24 04/17/2024 CBC WITH DIFFE RENTI AL/PL ATELE T immature cells [employer] Not Available [facility] ([facility]) [address] [place], [address], 04/17/2024 08:08:19 04/16/20 24 04/17/2024 CBC WITH DIFFE RENTI AL/PL ATELE T neutrophils (absolute) 3.0 x10e3 /uL 1.4-7. 0 normal Not Available [facility] ([facility]) [address] [place], [address], 04/17/2024 08:08:19 04/16/20 24 04/17/2024 CBC WITH DIFFE RENTI AL/PL ATELE T lymphs (absolute) 1.1 x10e3 /uL 0.7-3. 1 normal Not Available [facility] ([facility]) [address] [place], [address], 04/17/2024 08:08:19 04/16/20 24 04/17/2024 CBC WITH DIFFE RENTI AL/PL ATELE T monocytes(ab solute) 0.4 x10e3 /uL 0.1-0. 9 normal Not Available [facility] ([facility]) [address] [place], [address], 04/17/2024 08:08:19 04/16/20 24 04/17/2024 CBC WITH DIFFE RENTI AL/PL ATELE T eos (absolute) 0.0 x10e3 /uL 0.0-0. 4 normal Not Available [facility] ([facility]) [address] [place], [address], 04/17/2024 08:08:19 04/16/20 24 04/17/2024 CBC WITH DIFFE RENTI AL/PL ATELE T baso (absolute) 0.0 x10e3 /uL 0.0-0. 2 normal Not Available [facility] ([facility]) [address] [place], [address], 04/17/2024 08:08:19 04/16/20 24 04/17/2024 CBC WITH DIFFE RENTI AL/PL ATELE T immature granulocytes 0 % not estab. Not Available [facility] ([facility]) [address] [facility], [place], [address], 04/17/2024 08:08:19 04/16/20 24 04/17/2024 CBC WITH DIFFE RENTI AL/PL ATELE T immature grans (abs) 0.0 x10e3 /uL 0.0-0. 1 Not Available [facility] ([facility]) [address] [facility], [place], [address], 04/17/2024 08:08:19 04/16/20 24 04/17/2024 CBC WITH DIFFE RENTI AL/PL ATELE T NRBC [employer] Not Available [facility] ([facility]) [address] [facility], [place], [address], 04/17/2024 08:08:19 04/16/20 24 04/17/2024 CBC WITH DIFFE RENTI AL/PL ATELE T hematology comments: [employer] Not Available [facility] ([facility]) [address] [facility], [place], [address], 04/17/2024 08:08:19 04/16/20 24 04/17/2024 THYRO ID PANEL WITH TSH TSH 1.330 uIU/m L 0.450- 4.500 normal Not Available [facility] ([facility]) [address] [facility], [place], [address], 04/17/2024 10:06:54 04/16/20 24 04/17/2024 THYRO ID PANEL WITH TSH thyroxine (T4) 6.7 ug/dL 4.5-12 .0 normal Not Available [facility] ([facility]) [address] [place], [address], 04/17/2024 10:06:54 04/16/20 24 04/17/2024 THYRO ID PANEL WITH TSH T3 uptake 28 % 24-39 normal Not Available [facility] ([facility]) [address] [facility], [place], [address], 04/17/2024 10:06:54 04/16/20 24 04/17/2024 THYRO ID PANEL WITH TSH free thyroxine index 1.9 1.2-4. 9 normal Not Available [facility] ([facility]) [address] [facility], [place], [address], 04/17/2024 10:06:54 04/16/20 24 04/17/2024 COMP. METAB OLIC PANEL (14) glucose 89 mg/dL 70-99 normal Not Available [facility] ([facility]) [address] [facility], [place], [address], 04/17/2024 14:07:04 04/16/20 24 04/17/2024 COMP. METAB OLIC PANEL (14) BUN 11 mg/dL 6-24 normal Not Available [facility] ([facility]) [address] [place], [address], 04/17/2024 14:07:04 04/16/20 24 04/17/2024 COMP. METAB OLIC PANEL (14) creatinine 0.73 mg/dL 0.57-1 .00 normal Not Available [facility] ([facility]) [address] [place], [address], 04/17/2024 14:07:04 04/16/20 24 04/17/2024 COMP. METAB OLIC PANEL (14) eGFR 96 mL/mi n/1.7 3 >59 normal Not Available [facility] ([facility]) [address] [place], [address], 04/17/2024 14:07:04 04/16/20 24 04/17/2024 COMP. METAB OLIC PANEL (14) BUN/creatini ne ratio 15 9-23 normal Not Available [facility] ([facility]) [address] [place], [place], [address], 04/17/2024 14:07:04 04/16/20 24 04/17/2024 COMP. METAB OLIC PANEL (14) sodium 140 mmol/ L 134-14 4 normal Not Available [facility] ([facility]) [address] [place], [place], [address], 04/17/2024 14:07:04 04/16/20 24 04/17/2024 COMP. METAB OLIC PANEL (14) potassium 4.2 mmol/ L 3.5-5. 2 normal Not Available [facility] ([facility]) [address] [place], [address], 04/17/2024 14:07:04 04/16/20 24 04/17/2024 COMP. METAB OLIC PANEL (14) chloride 102 mmol/ L 96-106 normal Not Available [facility] ([facility]) [address], [place], [address], 04/17/2024 14:07:04 04/16/20 24 04/17/2024 COMP. METAB OLIC PANEL (14) carbon dioxide, total 23 mmol/ L 20-29 normal Not Available [facility] ([facility]) [address] [place], [address], 04/17/2024 14:07:04 04/16/20 24 04/17/2024 COMP. METAB OLIC PANEL (14) calcium 9.4 mg/dL 8.7-10 .2 normal Not Available [facility] ([facility]) [address] [place], [address], 04/17/2024 14:07:04 04/16/20 24 04/17/2024 COMP. METAB OLIC PANEL (14) protein, total 7.2 g/dL 6.0-8. 5 normal Not Available [facility] ([facility]) [address], [address], 04/17/2024 14:07:04 04/16/20 24 04/17/2024 COMP. METAB OLIC PANEL (14) albumin 4.5 g/dL 3.8-4. 9 normal Not Available [facility] ([facility]) [address] [place], [address], 04/17/2024 14:07:04 04/16/20 24 04/17/2024 COMP. METAB OLIC PANEL (14) globulin, total 2.7 g/dL 1.5-4. 5 Not Available [facility] ([facility]) [address] [place], [address], 04/17/2024 14:07:04 04/16/20 24 04/17/2024 COMP. METAB OLIC PANEL (14) bilirubin, total 1.0 mg/dL 0.0-1. 2 normal Not Available [facility] ([facility]) [address] [place], [address], 04/17/2024 14:07:04 04/16/20 24 04/17/2024 COMP. METAB OLIC PANEL (14) alkaline phosphatase 58 IU/L 44-121 normal Not Available [facility] ([facility]) [address] [place], [address], 04/17/2024 14:07:04 04/16/20 24 04/17/2024 COMP. METAB OLIC PANEL (14) AST (SGOT) 17 IU/L 0-40 normal Not Available [facility] ([facility]) [address] [place], [address], 04/17/2024 14:07:04 04/16/20 24 04/17/2024 COMP. METAB OLIC PANEL (14) ALT (SGPT) 12 IU/L 0-32 normal Not Available [facility] ([facility] [address] [place], [address], 04/17/2024 14:07:04 04/16/20 24 04/16/2024 XR, chest , 2 view No observ ation record ed. [email or web address] [facility] [address] [place], [address], 04/17/2024 08:54:02 04/17/20 24 elect milanar diogr am No observ ation record ed. [email or web address] Not Available 2023 08:48:54 Result Notes None recorded. Problems Name Problem SNOMED Code Status Onset Date Resolution Date Notes Provider Name and Address Organization Details Recorded Time Neck pain 91206051 Active 04/16/20 24 EDELMIRA holley PA - [facility] 04/16/2024 13:40:52 Problem Notes None recorded. Procedures Surgical History Date Name Laterality Status Provider Name and Address Organization Details Recorded Time 3 OC- Physical completed RAHUL INMAN PA - [facility] 10/04/2022 13:20:04 hysterectomy completed EDELMIRA MANCERA PA - [facility] 04/16/2024 12:58:08 Imaging Results Imaging Date Name Status LastModified by Organization Details LastModified Time 04/16/2024 XR, chest, 2 view completed [email or web address] [facility] [address] [place], [address], 04/17/2024 08:54:02 04/17/2024 electrocardiogram completed [email or web address] Informa tion not available 04/17/2024 08:48:54 Procedure Notes None recorded. Medical Equipment None Reported. Allergies No known drug allergies Vitals Date Recorded Body height Body mass index (BMI) Body weight Oxygen saturation Oxygen saturation in Arterial blood by Pulse oximetry Heart rate Respiratory rate Body temperature Systolic blood pressure Diastolic blood pressure Provider Name and Address Organization Details Last Updated DateTime 167.64 cm 21.3 kg/m2 01477.1 9 g 100 % 100 % 67 /min 18 /min 97.7 [degF] 129 mm[Hg] 78 mm[Hg] EDELMIRA MANCERA PA - [facility] 12:58:31 Social History Question Answer Notes LastModified by Organizat ion Details LastModified Time Tobacco Smoking Status Never Smoker EDELMIRA MINEO null, PA - [facility] 04/16/2024 12:57:57 What Is Your Level Of Alcohol Consumption? Occasional Information not available 04/16/2024 Do You Use Any Illicit Or Recreational Drugs? No Information not available 04/16/2024 Do You Or Have You Ever Used Any Other Forms Of Tobacco Or Nicotine? No Information not available 04/16/2024 Sex: Unknown Functional Status None recorded. Mental Status None recorded. Family History Nothing Reported. Medical History No medical history recorded. Gynecological History Statement/Question Response Is there any chance of ? No Obstetrics History GPAL:G 0 P 0 0 0 0 Immunizations Vaccine Type Date Status Note Provider Nam e and Address Organization Details Recorded Time HepB-CpG 02/23/2006 completed EDELMIRA MINEO null, PA - [facility] 04/16/2024 12:57:42 HepB-CpG 03/30/2006 completed EDELMIRA MINEO null, PA - [facility] 04/16/2024 12:57:42 HepB-CpG 08/22/2007 completed EDELMIRA MINEO null, PA - [facility] 04/16/2024 12:57:42 COVID-19, mRNA, LNP-S, PF, 30 mcg/0.3 mL dose 04/25/2021 completed EDELMIRA MINEO null, PA - [facility] 04/16/2024 12:57:43 COVID-19, mRNA, LNP-S, PF, 30 mcg/0.3 mL dose 05/18/2021 completed EDELMIRA MINEO null, PA - [facility] 04/16/2024 12:57:43 Tdap 12/05/2014 completed EDELMIRA MINEO null, PA - [facility] 04/16/2024 12:57:43 Past Encounters Encounter ID Performer Location Encounter Start Date Encounter Closed Date Diagnosis/Indication Diagnosis SNOMED-CT Code Diagnosis ICD10 Code Diagnosis Note [id number] [facility] [address], [place] [address] 03/19/2019 10:19:00 03/19/2019 10:57:36 [id number] Travis Witt MD [facility] [address] [place] [address] 10/04/2022 12:17:04 10/04/2022 13:53:39 History and physical examination, pre-employment 106914694 Z02.1 [id number] CONSUELO GUTIERREZ [address] [address] 04/16/2024 12:44:01 04/16/2024 13:50:14 Neck pain 53317547 M54.2 Chest wall pain 47688657 6 R07.89 Cough 95901925 R05.9 Health Concerns Section Related Observation LastModified by Organization Detai ls LastModified Time None Recorded Concern Status LastModified by Organization Details LastModified Time None Recorded Advance Directives Directive None Recorded Payers Encounter Date Sequence Insurance Name Policy Number Policy Allison Covered Member ID Allison Member ID Guarantor Name 10/04/2022 OC-ESCREEN Escreen ESCREEN Wa nda D White 04/16/2024 1 [facility] [place] [employer] [id number] Aysha D White [id number] Aysha D White Notes Date Note Type Note Provider Name and Address Organization Details Recorded Time 04/16/2024 text/html CoughReported bypatient.Notes:59 y.o female pt with no medical problems presents with upper sternal chest/throat pain x 5 days with intermittent coughing. Pain is worse when leaning forward or coughing. Pt denies fever, unintentional weight loss, chills, dysphagia or other sx's. CONSUELO GUTIERREZ [facility] [place], [address], PA - [facility] 04/17/2024 17:36:22 OBGyn Episode No OBEpisode recorded.
--- OUTSIDE RECORDS SUMMARY | 2024-12-10 19:25 | XMS_ITS | Clinical Summary ---
Author Organization [facility] Address [address] [place] [address] Phone Care Team Providers Care Telephone Order Supervisor Name Role Phone Unavailable Primary Care Provider Unavailabl e Encounters Date Type Department Care Team Description 10/03/2024 9:08 AM EST - 10/03/2024 11:59 PM EST Hospital Encounter [facility] PET Scan [address] [place] [id number] Metastatic malignant neoplasm to ovary (CMS/HCC) Discharge Disposition: Home or Self Care from Last 3 Months Social History Tobacco Use Types Packs/Day Years Used Date Smoking Tobacco: Never Assessed Comments Unknown Sex and Gender Information Value Date Recorded Sex Assigned at Not on file Legal Sex Female 3:44 PM EDT Gender Identity Not on file Sexual Orientation Not on file Plan of Treatment Health Maintenance Due Date Last Done Comments Breast Cancer Screening 1965 COVID-19 Vaccine (#1) 01/30/1972 DTaP,Tdap,and Td Vaccines (1 - Tdap) 1986 Hepatitis B Vaccines (1 of 3 - 19+ 3-dose series) 1986 Pneumococcal Vaccine: 50+ Ye ars (1 of 2 - PCV) 1986 Pneumococcal Vaccine: Pediat rics (0 to 5 Years) and At-Risk Patients (6 to 64 Years) (1 of 2 - PCV) 1986 Zoster Vaccines (1 of 2) 1986 Cervical Cancer Screening: P ap Smear 01/30/1988 Influenza Vaccine (#1) 2024 Colorectal Cancer Screening: Colonoscopy 07/11/2024 Depression Screening 07/11/2024 HIV Screening 07/11/2024 Hepatitis C Screening 07/11/2024 Social Influencers of Health Screening 07/11/2024 HIB Vaccines Aged Out No longer eligi ble based on patient's age to complete this topic HPV Vaccines Aged Out No longer eligi ble based on patient's age to complete this topic Hepatitis A Vaccines Aged Out No long er eligible based on patient's age to complete this topic IPV Vaccines Aged Out No longer eligi ble based on patient's age to complete this topic MMR Vaccines Aged Out No longer eligi ble based on patient's age to complete this topic Meningococcal ACWY Vaccine Aged Out N o longer eligible based on patient's age to complete this topic Meningococcal B Vacine Aged Out No lo nger eligible based on patient's age to complete this topic RSV Immunization Patients Un herson 20 months Aged Out No longer eligible b ased on patient's age to complete this topic Varicella Vaccines Aged Out No longer eligible based on patient's age to complete this topic Procedures Procedure Name Priority Date/Time Associated Diagnosis Comments PET CT SKULL TO MID THIGH SUBSEQUENT Routine 10/03/2024 11:10 AM EST Metastatic malignant neoplasm to ovary (CMS/HCC) from Last 3 Months Results * PET CT Skull to Mid Thigh Subsequent (10/03/2024 11:10 AM EST) Anatomical Region Laterality Modality Body Radiographic [place] ging 10/04/2024 5:30 AM EST Impressions 10/04/2024 9:40 AM EST Findings in keeping with treatment response with decrease in FDG activity/size of nodule in the right upper lobe and thoracic lymphadenopathy Please note: The CT was acquired at a low radiation dose settings. ??The images are of nondiagnostic quality and used solely for purposes of attenuation correction and slice localization for the PET scan. ??If a diagnostic CT study is desired it must be ordered separately. -------- FINAL REPORT -------- Dictated By: Vale Tobar Dictated Date: 10/04/2024 05:30 ET Assigned Physician: Vale Tobar Reviewed and Electronically Signed By: Vale Tobar Signed Date: 10/04/2024 09:40 ET Workstation ID: [id number] Transcribed By: Self Edit Transcribed Date: 10/04/2024 05:30 ET Narrative 10/04/2024 9:40 AM EST INDICATION: OVARY CANCER. ??Metastatic ovarian cancer with mediastinal lymphadenopathy as well as right upper lung mass presumed metastatic disease. ??Restaging. TECHNIQUE: FDG PET-CT imaging was performed from the skull bases through the thighs in a single acquisition with data set reconstructed in axial, coronal, and sagittal planes at the computer workstation with fused data from both the PET imaging study and attenuation correction CT. The CT portion of the examination was done strictly for attenuation correction and is not a true diagnostic CT examination. ??Enteric contrast was administered. DLP: ??357 mGy-cm Radiopharmaceutical: 12.3 mCi of F-18 FDG IV. Blood glucose: 117 mg/dl. COMPARISON: Prior PET CT 06/25 FINDINGS: HEAD AND NECK: No abnormal FDG activity. THORAX: Interval decrease in size and FDG activity of right upper lobe mass SUV max 1.2 (previously 10.9). ??Other smaller scattered sub-5 mm pulmonary nodules, similar to prior without significant FDG activity due to small size. ??For example left lower lobe SUV max 0.6 and juxtapleural right lower lobe SUV max 1.0. Interval decrease in size/resolution of upper mediastinal/right upper paratracheal lymphadenopathy SUV max 2.0 (previously 12), right paratracheal SUV max 3.5 (previously 6.3), subcarinal SUV max 4.1 (previously 12.5). ??Right hilar SUV max 3.2 (previously 6.0). Previously seen right infraclavicular lymph node is no longer identified. Nonenlarged bilateral axillary and retropectoral lymph nodes without significant FDG activity SUV max 1.0. ?? Left-sided Port-A-Cath with tip in the cavoatrial junction. ABDOMEN/PELVIS: No abnormal FDG activity. MUSCULOSKELETAL: Asymmetric FDG activity along the left greater trochanter SUV Max 5.2 which may represent greater trochanteric bursitis. ??Mild increased bone marrow activity SUV max 2.9 which may represent bone marrow activation from systemic therapy. ??Diffuse muscle uptake. Procedure Note Vale Tobar MD - 10/04/2024 INDICATION: OVARY CANCER. Metastatic ovarian cancer with mediastinallymphadenopathy as well as right upper lung mass presumed metastaticdisease. Restaging. TECHNIQUE: FDG PET-CT imaging was performed from the skull bases throughthe thighs in a single acquisition with data set reconstructed in axial,coronal, and sagittal planes at the computer workstation with fused datafrom both the PET imaging study and attenuation correction CT. The CTportion of the examination was done strictly for attenuation correctionand is not a true diagnostic CT examination. Enteric contrast wasadministered. DLP: 357 mGy-cm Radiopharmaceutical: 12.3 mCi of F-18 FDG IV. Blood glucose: 117 mg/dl. COMPARISON: Prior PET CT 06/25 FINDINGS: HEAD AND NECK: No abnormal FDG activity. THORAX: Interval decrease in size and FDG activity of right upper lobemass SUV max 1.2 (previously 10.9). Other smaller scattered sub-5 mmpulmonary nodules, similar to prior without significant FDG activity dueto small size. For example left lower lobe SUV max 0.6 and juxtapleuralright lower lobe SUV max 1.0. Interval decrease in size/resolution of upper mediastinal/right upperparatracheal lymphadenopathy SUV max 2.0 (previously 12), rightparatracheal SUV max 3.5 (previously 6.3), subcarinal SUV max 4.1(previously 12.5). Right hilar SUV max 3.2 (previously 6.0). Previously seen right infraclavicular lymph node is no longeridentified. Nonenlarged bilateral axillary and retropectoral lymph nodes withoutsignificant FDG activity SUV max 1.0. Left-sided Port-A-Cath with tip in the cavoatrial junction. ABDOMEN/PELVIS: No abnormal FDG activity. MUSCULOSKELETAL: Asymmetric FDG activity along the left greater trochanterSUV Max 5.2 which may represent greater trochanteric bursitis. Mildincreased bone marrow activity SUV max 2.9 which may represent bone marrowactivation from systemic therapy. Diffuse muscle uptake. IMPRESSION: Findings in keeping with treatment response with decrease in FDGactivity/size of nodule in the right upper lobe and thoraciclymphadenopathy Please note: The CT was acquired at a low radiation dose settings. The images are ofnondiagnostic quality and used solely for purposes of attenuationcorrection and slice localization for the PET scan. If a diagnostic CTstudy is desired it must be ordered separately. -------- FINAL REPORT -------- Dictated By: Vale Tobar Dictated Date: 10/04/2024 05:30 ET Assigned Physician: Vale Tobar Reviewed and Electronically Signed By: Vale Tobar Signed Date: 10/04/2024 09:40 ET Workstation ID: [id number] Transcribed By: Self Edit Transcribed Date: 10/04/2024 05:30 ET Verna Drake MD [id number] Final Result from Last 3 [place] [id number]
== END 2024-12-10 16:30 | disposition home or self-care (01) ==
LOC: HO.LAB 16:29
PROVIDERS: PCP Internal Medicine; Visit Provider Internal Medicine
DX: C56.9 Malignant neoplasm of unspecified ovary (principal); C34.91 Malignant neoplasm of unspecified part of right bronchus or lung
CPT/HCPCS: 36415; 80053; 81003; 85025

== ENCOUNTER 2025-03-24 12:32 | Outpatient (REF) | payer BC, SELFPAY ==
--- NOTE | ~2025-03-24 | CT_ITS ---
EXAMINATION: CT CHEST WITH IV CONTRAST, CT ABDOMEN PELVIS WITH IV CONTRAST INDICATION: Assess response to treatment COMPARISON: Comparison is made with the prior chest CT dated 01/13/2024. Correlation is also made with a PET/CT scan from [facility] dated 10/03/2024.. TECHNIQUE: CT scan of the chest, abdomen and pelvis was performed following administration of 85 mL Omnipaque 350 using standard departmental protocol. Coronal and sagittal reformatted images were generated and reviewed. Oral contrast material was not administered at the request of the referring physician. This CT exam was performed with one or more of the following dose reduction techniques: automated exposure control, adjustment of the mA and/or kV according to patient size, use of iterative reconstruction technique. DLP: 627 mGy-cm CHEST: THYROID: The thyroid is unremarkable. LUNGS: Again seen is biapical pleural and parenchymal scarring. There is a 1.4 x 1.0 cm right upper lobe nodule along the pleural surface. The solid portion of the nodule appears similar in size to the prior study. The previously seen surrounding groundglass opacity has resolved, as has extension to the hilum. There is an ovoid 6 x 2 mm nodule right lower lobe (series 4, image 74) which is likely present on the prior study. A 5 mm pleural-based nodule in the right lower lobe (series 4, image 82) appears more prominent. A 5 mm pleural-based nodule in the right lower lobe (series 4, image 100) also appears more prominent. MEDIASTINUM: There has been improvement in previously seen mediastinal lymphadenopathy. A right paratracheal node measuring 1.5 cm previously measured 3.1 x 2.5 cm. A 1.1 cm anterior mediastinal lymph node previously measured 2.1 cm. However, there are new AP window lymph nodes measuring up to 1.5 cm in size. There is a 1.6 cm subcarinal lymph node which is likely similar in size. CORNELL: There are new bilateral hilar lymph nodes measuring up to 1.3 cm on the right and 1.0 cm on the left. CARDIOVASCULATURE: The heart is normal in size. There is no pericardial effusion. The thoracic aorta is normal in caliber. DEGREE OF CORONARY CALCIFICATION: none PLEURA: There is no pleural effusion. No pneumothorax. MAIN AIRWAYS: The mainstem bronchi and proximal branches are patent. AXILLA: There is no axillary lymphadenopathy. SOFT TISSUES: Unremarkable. BONES: The bones are intact. ABDOMEN: LIVER: The liver is normal in size and contour. No liver mass is identified. The hepatic and portal veins are patent. GALLBLADDER / BILE DUCTS: The gallbladder is unremarkable. There is no intra or extrahepatic biliary ductal dilatation. SPLEEN: The spleen is normal in size. No focal splenic lesion is identified. PANCREAS: The pancreas is unremarkable in appearance. ADRENAL GLANDS: Within normal limits. KIDNEYS/RETROPERITONEUM: No renal calculi are identified. There is no hydronephrosis. No renal masses are identified. LYMPH NODES: No abdominal or pelvic lymphadenopathy. VASCULATURE: The abdominal aorta is normal in caliber. MESENTERY/PERITONEUM: No free fluid. No masses. There is no free intraperitoneal gas. STOMACH: The stomach is unremarkable. SMALL BOWEL: The small bowel is normal in caliber. COLON: The colon is unremarkable. APPENDIX: Normal. URINARY BLADDER/PELVIC ORGANS: The urinary bladder is collapsed, limiting detailed evaluation. The patient is status post hysterectomy. BONES / SOFT TISSUES: No suspicious bony or soft tissue abnormalities. CT/CT abdomen pelvis w IV con IMPRESSION: 1. Improvement in previously described mediastinal lymphadenopathy as described above. 2. The solid portion of the previously seen dominant 1.4 x 1.0 cm right upper lobe nodule is similar in size, with resolution of the previously seen surrounding groundglass opacity and extension to the hilum. However, there are multiple subcentimeter pulmonary nodules in the right upper lobe which appear more prominent. 3. New bilateral hilar lymphadenopathy as described. Electronically signed by: Iggy Cabrera MD 03/24/2025 01:32 PM EDT
[2025-03-24] MEDS: iohexoL 350 MG/ML 100 ML INFUS..BTL IV (12:57)
--- OUTSIDE RECORDS SUMMARY | 2025-03-24 13:54 | XMS_ITS | Data Portability ---
Author Organization CONSUELO - [facility], [id number] [place] [address] Assessment No assessment recorded. Plan of Treatment Reminders Order Date Submit Date Provider Last Modified By Organization Details Last Modified Time Details Appointments None recorded. Lab Mycobacteri um tuberculosi s stimulated gamma interferon, qual, blood 2022 023 JIM [facility], [address] [facility], [place], [address], 3 16:11:25 Referral None recorded. Procedures None recorded. Surgeries None recorded. Imaging XR, chest, 2 view 2023 024 [email or web address] [facility], [address] [facility] [address], [place], [address], 4 13:50:15 Medication Orders None recorded. Patient TargetsNo targets recorded. Patient Instructions Encounter Date Encounter Id Patient Instructions Last Modified By Organization Details Last Modified Time 04/16/2024 [id number] specimen collection & handling* JIM Not available 04/16/2024 13:46:04 Reason for Referral None Reported. Results Created Date Observation Date Name Description Value Unit Range Abnormal Flag Note LastModifiedBy Organization Detail LastModifiedTime 10/04/1910/06/2022 QUANT IFERO N-TB GOLD PLUS quantiferon incubation INCUBA TION PERFOR MED. Not Available [facility] ([facility]) [address] [facility], [place], [address], 10/06/2022 16:11:25 10/04/19 10/06/2022 QUANT IFERO N-TB GOLD PLUS quantiferon criteria COMMEN T Quant iFERO N-TB Gold Plus is a quali tativ e indir ect test for M tuber karenos is infec tion (incl uding disea se) [...] ol for the test. Not Available [facility] ([facility]) [address] [place], [address], 10/06/2022 16:11:25 10/04/1910/06/2022 QUANT IFERO N-TB GOLD PLUS quantiferon TB1 Ag value 0.10 IU/mL Not Available [facility] ([facility]) [address] [place], [address], 10/06/2022 16:11:25 10/04/19 23 10/06/2022 QUANT IFERO N-TB GOLD PLUS quantiferon TB2 Ag value 0.10 IU/mL Not Available [facility] ([facility]) [address] [place], [address], 10/06/2022 16:11:25 10/04/19 23 10/06/2022 QUANT IFERO N-TB GOLD PLUS quantiferon nil value 0.06 IU/mL Not Available [facility] ([facility]) [address] [place], [address], 10/06/2022 16:11:25 10/04/19 23 10/06/2022 QUANT IFERO N-TB GOLD PLUS quantiferon mitogen value >10.00 IU/mL Not Available [facility] ([facility]) [address] [place], [address], 10/06/2022 16:11:25 10/04/19 23 10/06/2022 QUANT IFERO N-TB GOLD PLUS quantiferon- TB gold plus NEGATI VE negati ve No respo nse to M laura ferrera is antig ens detec rocío. Infec tion with M laura ferrera is is unlik chidi, but high risk indiv idual s shoul d be consi dered for addit ional testi ng (ATS/ IDSA/ CDC Clini cristian Pract ice Guide lines , 2017) . The refer ence range is an Antig en minus Nil resul t of <0.35 IU/mL . Chemi lumin escen ce immun oassa y metho dolog y Not Available [facility] ([facility]) [address] [place], [address], 10/06/2022 16:11:25 04/16/20 24 04/17/2024 CBC WITH DIFFE RENTI AL/PL ATELE T WBC 4.6 x10e3 /uL 3.4-10 .8 normal Not Available [facility] ([facility]) [address] [place], [address], 04/17/2024 08:08:19 04/16/20 24 04/17/2024 CBC WITH DIFFE RENTI AL/PL ATELE T RBC 4.21 x10e6 /uL 3.77-5 .28 normal Not Available [facility] ([facility]) [address] [place], [address], 04/17/2024 08:08:19 04/16/20 24 04/17/2024 CBC WITH DIFFE RENTI AL/PL ATELE T hemoglobin 12.7 g/dL 11.1-1 5.9 normal Not Available [facility] ([facility]) [address] [place], [address], 04/17/2024 08:08:19 04/16/20 24 04/17/2024 CBC WITH DIFFE RENTI AL/PL ATELE T hematocrit 39.6 % 34.0-4 6.6 normal Not Available [facility] ([facility]) [address] [facility], [place], [address], 04/17/2024 08:08:19 04/16/20 24 04/17/2024 CBC WITH DIFFE RENTI AL/PL ATELE T MCV 94 fL 79-97 normal Not Available [facility] ([facility]) [address] [facility], [place], [address], 04/17/2024 08:08:19 04/16/20 24 04/17/2024 CBC WITH DIFFE RENTI AL/PL ATELE T MCH 30.2 pg 26.6-3 3.0 normal Not Available [facility] ([facility]) [address] [place], [address], 04/17/2024 08:08:19 04/16/20 24 04/17/2024 CBC WITH DIFFE RENTI AL/PL ATELE T MCHC 32.1 g/dL 31.5-3 5.7 normal Not Available [facility] ([facility]) [address] [facility], [place], [address], 04/17/2024 08:08:19 04/16/20 24 04/17/2024 CBC WITH DIFFE RENTI AL/PL ATELE T RDW 13.3 % 11.7-1 5.4 Not Available [facility] ([facility]) [address] [place], [address], 04/17/2024 08:08:19 04/16/20 24 04/17/2024 CBC WITH DIFFE RENTI AL/PL ATELE T platelets 163 x10e3 /uL 150-45 0 normal Not Available [facility] ([facility]) [address] [place], [address], 04/17/2024 08:08:19 04/16/20 24 04/17/2024 CBC WITH DIFFE RENTI AL/PL ATELE T neutrophils 66 % not estab. normal Not Available [facility] ([facility]) [address] [place], [address], 04/17/2024 08:08:19 04/16/20 24 04/17/2024 CBC WITH DIFFE RENTI AL/PL ATELE T lymphs 24 % not estab. normal Not Available [facility] ([facility]) [address] [facility], [place], [address], 04/17/2024 08:08:19 04/16/20 24 04/17/2024 CBC WITH DIFFE RENTI AL/PL ATELE T monocytes 8 % not estab. normal Not Available [facility] ([facility]) [address] [facility], [place], [address], 04/17/2024 08:08:19 04/16/20 24 04/17/2024 CBC WITH DIFFE RENTI AL/PL ATELE T eos 1 % not estab. normal Not Available [facility] ([facility]) [address] [facility], [place], [address], 04/17/2024 08:08:19 04/16/20 24 04/17/2024 CBC WITH DIFFE RENTI AL/PL ATELE T basos 1 % not estab. normal Not Available [facility] ([facility]) [address] [facility], [place], [address], 04/17/2024 08:08:19 04/16/20 24 04/17/2024 CBC WITH DIFFE RENTI AL/PL ATELE T immature cells SUPERVISOR BRIAR SHOP Not Available [facility] ([facility]) [address] [facility], [place], [address], 04/17/2024 08:08:19 04/16/20 24 04/17/2024 CBC WITH DIFFE RENTI AL/PL ATELE T neutrophils (absolute) 3.0 x10e3 /uL 1.4-7. 0 normal Not Available [facility] ([facility]) [address] [facility], [place], [address], 04/17/2024 08:08:19 04/16/20 24 04/17/2024 CBC WITH DIFFE RENTI AL/PL ATELE T lymphs (absolute) 1.1 x10e3 /uL 0.7-3. 1 normal Not Available [facility] ([facility]) [address] [facility], [place], [address], 04/17/2024 08:08:19 04/16/20 24 04/17/2024 CBC WITH DIFFE RENTI AL/PL ATELE T monocytes(ab solute) 0.4 x10e3 /uL 0.1-0. 9 normal Not Available [facility] ([facility]) [address] [place], [address], 04/17/2024 08:08:19 04/16/20 24 04/17/2024 CBC WITH DIFFE RENTI AL/PL ATELE T eos (absolute) 0.0 x10e3 /uL 0.0-0. 4 normal Not Available [facility] ([facility]) [address] [facility], [place], [address], 04/17/2024 08:08:19 04/16/20 24 04/17/2024 CBC WITH DIFFE RENTI AL/PL ATELE T baso (absolute) 0.0 x10e3 /uL 0.0-0. 2 normal Not Available [facility] ([facility]) [address] [facility], [place], [address], 04/17/2024 08:08:19 04/16/20 24 04/17/2024 CBC WITH DIFFE RENTI AL/PL ATELE T immature granulocytes 0 % not estab. Not Available [facility] ([facility]) [address] [place], [address], 04/17/2024 08:08:19 04/16/20 24 04/17/2024 CBC WITH DIFFE RENTI AL/PL ATELE T immature grans (abs) 0.0 x10e3 /uL 0.0-0. 1 Not Available [facility] ([facility]) [address] [facility], [place], [address], 04/17/2024 08:08:19 04/16/20 24 04/17/2024 CBC WITH DIFFE RENTI AL/PL ATELE T NRBC SUPERVISOR BRIAR SHOP Not Available [facility] ([facility]) [address], [place], [address], 04/17/2024 08:08:19 04/16/20 24 04/17/2024 CBC WITH DIFFE RENTI AL/PL ATELE T hematology comments: SUPERVISOR BRIAR SHOP Not Available [facility] ([facility]) [address] [facility], [place], [address], 04/17/2024 08:08:19 04/16/20 24 04/17/2024 THYRO ID PANEL WITH TSH TSH 1.330 uIU/m L 0.450- 4.500 normal Not Available [facility] ([facility]) [address] [facility], [place], [address], 04/17/2024 10:06:54 04/16/20 24 04/17/2024 THYRO ID PANEL WITH TSH thyroxine (T4) 6.7 ug/dL 4.5-12 .0 normal Not Available [facility] ([facility]) [address] [facility], [place], [address], 04/17/2024 10:06:54 04/16/20 24 04/17/2024 THYRO ID PANEL WITH TSH T3 uptake 28 % 24-39 normal Not Available [facility] ([facility]) [address] [facility], [place], [address], 04/17/2024 10:06:54 04/16/20 24 04/17/2024 THYRO ID PANEL WITH TSH free thyroxine index 1.9 1.2-4. 9 normal Not Available [facility] ([facility]) [address] [facility], [place], [address], 04/17/2024 10:06:54 04/16/20 24 04/17/2024 COMP. METAB OLIC PANEL (14) glucose 89 mg/dL 70-99 normal Not Available [facility] ([facility]) [address] [facility] [place], [address], 04/17/2024 14:07:04 04/16/20 24 04/17/2024 COMP. METAB OLIC PANEL (14) BUN 11 mg/dL 6-24 normal Not Available [facility] ([facility]) [address] [facility] [place], [address], 04/17/2024 14:07:04 04/16/20 24 04/17/2024 COMP. METAB OLIC PANEL (14) creatinine 0.73 mg/dL 0.57-1 .00 normal Not Available [facility] ([facility]) [address] [facility] [place], [address], 04/17/2024 14:07:04 04/16/20 24 04/17/2024 COMP. METAB OLIC PANEL (14) eGFR 96 mL/mi n/1.7 3 >59 normal Not Available [facility] ([facility]) [address] [facility] [place], [address], 04/17/2024 14:07:04 04/16/20 24 04/17/2024 COMP. METAB OLIC PANEL (14) BUN/creatini ne ratio 15 9-23 normal Not Available [facility] ([facility]) [address] [facility] [place], [address], 04/17/2024 14:07:04 04/16/20 24 04/17/2024 COMP. METAB OLIC PANEL (14) sodium 140 mmol/ L 134-14 4 normal Not Available [facility] ([facility]) [address] [facility] [place], [address], 04/17/2024 14:07:04 04/16/20 24 04/17/2024 COMP. METAB OLIC PANEL (14) potassium 4.2 mmol/ L 3.5-5. 2 normal Not Available [facility] ([facility]) [address] [place], [address], 04/17/2024 14:07:04 04/16/20 24 04/17/2024 COMP. METAB OLIC PANEL (14) chloride 102 mmol/ L 96-106 normal Not Available [facility] ([facility]) [address] [place], [address], 04/17/2024 14:07:04 04/16/20 24 04/17/2024 COMP. METAB OLIC PANEL (14) carbon dioxide, total 23 mmol/ L 20-29 normal Not Available [facility] ([facility]) [address] [place], [address], 04/17/2024 14:07:04 04/16/20 24 04/17/2024 COMP. METAB OLIC PANEL (14) calcium 9.4 mg/dL 8.7-10 .2 normal Not Available [facility] ([facility]) [address] [place], [address], 04/17/2024 14:07:04 04/16/20 24 04/17/2024 COMP. METAB OLIC PANEL (14) protein, total 7.2 g/dL 6.0-8. 5 normal Not Available [facility] ([facility]) [address] [place], [address], 04/17/2024 14:07:04 04/16/20 24 04/17/2024 COMP. METAB OLIC PANEL (14) albumin 4.5 g/dL 3.8-4. 9 normal Not Available [facility] ([facility]) [address] [place], [address], 04/17/2024 14:07:04 04/16/20 24 04/17/2024 COMP. METAB OLIC PANEL (14) globulin, total 2.7 g/dL 1.5-4. 5 Not Available [facility] ([facility]) [address] [facility], [place], [address], 04/17/2024 14:07:04 04/16/20 24 04/17/2024 COMP. METAB OLIC PANEL (14) bilirubin, total 1.0 mg/dL 0.0-1. 2 normal Not Available [facility] ([facility]) [address] [place], [address], 04/17/2024 14:07:04 04/16/20 24 04/17/2024 COMP. METAB OLIC PANEL (14) alkaline phosphatase 58 IU/L 44-121 normal Not Available [facility] ([facility]) [address] [facility] [place], [address], 04/17/2024 14:07:04 04/16/20 24 04/17/2024 COMP. METAB OLIC PANEL (14) AST (SGOT) 17 IU/L 0-40 normal Not Available [facility] ([facility]) [address] [place], [address], 04/17/2024 14:07:04 04/16/20 24 04/17/2024 COMP. METAB OLIC PANEL (14) ALT (SGPT) 12 IU/L 0-32 normal Not Available [facility] ([facility]) [address] [place], [address], 04/17/2024 14:07:04 04/16/20 24 04/16/2024 XR, chest , 2 view No observ ation record ed. [email or web address] [facility] [address] [place], [address], 04/17/2024 08:54:02 04/17/20 24 elect milanar chrisgr am No observ ation record ed. [email or web address] Not Available 2023 08:48:54 Result Notes None recorded. Problems Name Problem SNOMED Code Status Onset Date Resolution Date Notes Provider Name and Address Organization Details Recorded Time Neck pain 38036305 Active 04/16/20 24 CONSUELO Tobias [facility] 04/16/2024 13:40:52 Problem Notes None recorded. Procedures Surgical History Date Name Laterality Status Provider Name and Address Organization Details Recorded Time OC- Physical completed RAHUL INMAN PA - [facility] 10/04/2022 13:20:04 hysterectomy completed EDELMIRA CALDERON PA - [facility] 04/16/2024 12:58:08 Imaging Results None recorded. Procedure Notes None recorded. Medical Equipment None Reported. Allergies No known drug allergies Vitals Date Recorded Body height Body mass index (BMI) Body weight Oxygen saturation Oxygen saturation in Arterial blood by Pulse oximetry Heart rate Respiratory rate Body temperature Systolic blood pressure Diastolic blood pressure Provider Name and Address Organization Details Last Updated DateTime 167.64 cm 21.3 kg/m2 76647.1 9 g 100 % 100 % 67 /min 18 /min 97.7 [degF] 129 mm[Hg] 78 mm[Hg] EDELMIRA MANCERA PA - [facility] 12:58:31 Social History None recorded. Functional Status Question Answer Note LastModified by Organizat ion Details LastModified Time Do you use any illicit or recreational drugs? No Information not available 04/16/2024 Do you or have you ever used any other forms of tobacco or nicotine? No Information not available 04/16/2024 What is your level of alcohol consumption? Occasional Information not available 04/16/2024 Mental Status None recorded. Family History Nothing Reported. Medical History No medical history recorded. Gynecological History Statement/Question Response Is there any chance of ? No Obstetrics History GPAL:G 0 P 0 0 0 0 Immunizations Vaccine Type Date Status Note Provider Nam e and Address Organization Details Recorded Time HepB-CpG 02/23/2006 completed EDELMIRA holley, PA - [facility] 04/16/2024 12:57:42 HepB-CpG 03/30/2006 completed EDELMIRA holley, PA - [facility] 04/16/2024 12:57:42 HepB-CpG 08/22/2007 completed EDELMIRA holley, PA - [facility] 04/16/2024 12:57:42 COVID-19, mRNA, LNP-S, PF, 30 mcg/0.3 mL dose 04/25/2021 completed EDELMIRA MINEO null, PA - [facility] 04/16/2024 12:57:43 COVID-19, mRNA, LNP-S, PF, 30 mcg/0.3 mL dose 05/18/2021 completed EDLEMIRA MINEO null, PA - [facility] 04/16/2024 12:57:43 Tdap 12/05/2014 completed EDELMIRA MINEO null, PA - [facility] 04/16/2024 12:57:43 Past Encounters Encounter ID Performer Location Encounter Start Date Encounter Closed Date Diagnosis/Indication Diagnosis SNOMED-CT Code Diagnosis ICD10 Code Diagnosis Note [id number] [address] [place] [address] [facility] [address] [place] [address] 03/19/2019 10:19:00 03/19/2019 10:57:36 [id number] Travis Witt MD [address] [facility] [address] [facility] [address] [place] [address] 10/04/2022 12:17:04 10/04/2022 13:53:39 History and physical examination, pre-employment 081967690 Z02.1 [id number] CONSUELO GUTIERREZ [address] [address] 04/16/2024 12:44:01 04/16/2024 13:50:14 Neck pain 34954329 M54.2 Chest wall pain 57527424 6 R07.89 Cough 39239583 R05.9 Health Concerns Section Related Observation LastModified by Organization Detai ls LastModified Time None Recorded Concern Status LastModified by Organization Details LastModified Time None Recorded Advance Directives Directive None Recorded Payers Insurance Date Sequence Insurance Name Policy Number Policy Allison Covered Member ID Allison Member ID Guarantor Name 11/30/2024 1 [id number] Aysha D White [id number] Aysha D White 11/30/2024 OC-ESCREEN Escreen ESCREEN Wa nda D White Notes Date Note Type Note Provider Name and Address Organization Details Recorded Time 04/16/2024 text/html CoughReported bypatient.Notes:59 y.o female pt with no medical problems presents with upper sternal chest/throat pain x 5 days with intermittent coughing. Pain is worse when leaning forward or coughing. Pt denies fever, unintentional weight loss, chills, dysphagia or other sx's. CONSUELO GUTIERREZ [address] [place], [address], PA - [facility] 04/17/2024 17:36:22 OBGyn Episode No OBEpisode recorded.
== END 2025-03-24 12:33 | disposition home or self-care (01) ==
LOC: HO.CT 12:32
PROVIDERS: PCP Internal Medicine; Visit Provider Internal Medicine
DX: C56.9 Malignant neoplasm of unspecified ovary (principal)
CPT/HCPCS: 71260; 74177; Q9967

== ENCOUNTER → 2025-03-24 12:34 | Outpatient (BNV) | payer BC, SELFPAY | PROVIDERS: PCP Internal Medicine; Visit Provider Radiology Diagnostic Radiology | DX: C56.9 Malignant neoplasm of unspecified ovary (principal); R59.0 Localized enlarged lymph nodes; R91.8 Other nonspecific abnormal finding of lung field | CPT/HCPCS: 71260; 74177 ==

== ENCOUNTER 2025-04-30 12:58 | Outpatient (REF) | payer OTHER, SELFPAY ==
--- NOTE | ~2025-04-30 | XR_ITS ---
EXAMINATION: XR SHOULDER, RIGHT CLINICAL INFORMATION: M25.511 - Pain in right shoulder COMPARISON: Correlated to chest x-ray dated May 14, 2024. TECHNIQUE: AP and Y-view projections of the right shoulder. FINDINGS: No acute cortical disruption or malalignment. Small subchondral cyst formation and sclerosis in the greater tuberosity right humerus. No gross lytic or blastic lesions. XR/XR shoulder RT min 2V IMPRESSION: Mild osteoarthritis/osteoarthrosis, greater tuberosity right humerus. Electronically signed by: Nestor Shoemaker MD 04/30/2025 01:42 PM EDT
== END 2025-04-30 12:59 | disposition home or self-care (01) ==
LOC: HO.HOSX 12:58
PROVIDERS: PCP Internal Medicine; Visit Provider Orthopaedic Surgery
DX: M25.511 Pain in right shoulder (principal); M25.311 Other instability, right shoulder; M25.811 Other specified joint disorders, right shoulder; R29.898 Other symptoms and signs involving the musculoskeletal system; Z79.899 Other long term (current) drug therapy; Z79.2 Long term (current) use of antibiotics
CPT/HCPCS: 73030; 99202

== ENCOUNTER 2025-04-30 12:58 | Outpatient (AMB) | payer OTHER, SELFPAY ==
--- NOTE | 2025-04-30 13:03 | A.OFFVIS_ITS ---
Vital Signs 04/30/25 13:06 Height 5 ft 6 in Weight 141 lb BMI 22.8 Intake Visit Reasons: Right shoulder pain and weakness Intake Note: Aysha is a 60 year old female who presents with complaints of progressively worsening right shoulder pain and weakness. She describes her pain as sharp in nature. Her pain has gotten worse over the last 8-9 years in spite of continued non operative treatments. She reports weakness when lifting her right hand above shoulder height. The patient is currently being treated for metastatic ovarian cancer. She has failed the last 6 weeks of conservative treatment which has included a home exercise program, physical therapy exercises, Tylenol and anti-inflammatory medicines. Allergies No Known Allergies Allergy (Verified 04/30/25 13:05) Medication List - Last Reconciled 04/30/25 by Eron Candelaria MD ciprofloxacin HCl 250 mg PO BID dexamethasone 4 mg PO BID folic acid 1 mg PO DAILY multivitamin (Daily Multi-Vitamin tablet) 1 tab PO DAILY omeprazole 40 mg PO DAILY ondansetron 8 mg PO Q8H PFSH Surgical History Hx of hysterectomy Family History Maternal Uncle Lung cancer Social History Household Members: Spouse and Significant Other Are you a primary human services care specialist to a significant other at home: No Do you presently have visiting nurse or other home services: No Alcohol intake: current Alcohol intake frequency: a few times a week Patient Tobacco Use Status: Never used Tobacco service: No Current occupational status: employed Gender identity: Female Physical Exam Vital Signs: BMI result Body Mass Index 22.8 Const Other: Well-nourished well-developed very friendly female awake alert and oriented x3 in no acute distress Extrem Other: Right shoulder examination shows slightly decreased range of motion when compared to her left shoulder, 4+ out of 5 strength with supraspinatus testing, positive impingement signs, tenderness over her acromioclavicular joint, no instability Results Reviewed Results Reviewed: X-rays of the patient's right shoulder taken today show moderate to severe acromioclavicular joint narrowing, a type 2 acromion, no acute bony abnormalities Assessment & Plan Assessment & Plan (1) Right shoulder pain: Code(s): M25.511 - Pain in right shoulder Category: Medical (2) Rotator cuff insufficiency of right shoulder: Code(s): M25.311 - Other instability, right shoulder Category: Medical Plan Ms. Yadav presents with right shoulder pain and weakness due to impingement syndrome and possible rotator cuff tearing. Thus, I will send the patient for an MRI of her right shoulder for further evaluation. I will see her back once the MRI is completed to discuss the findings and treatment options. Feel free to call me at any time should questions regarding her orthopedic management arise. Thank you very much for asking me to see this very friendly patient. I spent 21 minutes in reviewing the patient's records and imaging studies, seeing the patient and documenting in the medical record. Orders: Orders MR shoulder RT wo con 05/01/25 M25.311 - Other instability, right shoulder XR shoulder RT min 2V Today M25.511 - Pain in right shoulder Coding Level of Care Code New Pt Level 3 (75552) Complex EM visit Add On G2211 Diagnoses Right shoulder pain M25.511 Rotator cuff insufficiency of right shoulder M25.311
[2025-04-30 13:06] VITALS: BMI 22.8
--- OUTSIDE RECORDS SUMMARY | 2025-04-30 13:31 | XMS_ITS | Clinical Summary ---
Author Organization [facility] Address [address] [place] [address] Phone Care Team Providers Care Deckhand Sponge Boat Name Role Phone Unavailable Primary Care Provider Unavailabl e Social History Tobacco Use Types Packs/Day Years [...] ars (1 of 2 - PCV) 1986 Zoster Vaccines (1 of 2) 1986 Cervical Cancer Screening: P ap Smear 01/30/1988 Colorectal Cancer Screening: Colonoscopy 07/11/2024 HIV Screening 07/11/2024 Hepatitis C Screening 07/11/2024 Social Influencers of Health Screening 07/11/2024 Depression Screening 10/02/2024 Influenza Vaccine (#1) 2025 HIB Vaccines Aged Out No longer eligi [...] age to complete this topic Meningococcal B Vaccine Aged Out No l onger eligible based on patient's age to complete this topic RSV Immunization Patients Un herson 20 months Aged Out No longer eligible b ased on patient's age to complete this topic Varicella Vaccines Aged Out No longer eligible based on patient's age to complete this topic Insurance )
== END 2025-04-30 13:42 | disposition home or self-care (01) ==
LOC: HO.HOS 12:59
PROVIDERS: PCP Internal Medicine; Visit Provider Orthopaedic Surgery
DX: M25.511 Pain in right shoulder (principal); M25.311 Other instability, right shoulder
CPT/HCPCS: 99203

== ENCOUNTER → 2025-04-30 13:12 | Outpatient (BNV) | payer OTHER, SELFPAY | PROVIDERS: PCP Internal Medicine; Visit Provider Radiology Diagnostic Radiology | DX: M25.511 Pain in right shoulder (principal) | CPT/HCPCS: 73030 ==

== ENCOUNTER 2025-05-05 19:42 | Outpatient (REF) | payer OTHER, SELFPAY ==
--- NOTE | ~2025-05-05 | MR_ITS ---
EXAMINATION: MRI Shoulder without contrast, right TECHNIQUE: Multiplanar multisequence MR imaging through an upper extremity joint without contrast. INDICATION: Rotator cuff tear, Right shoulder pain, limited range of motion, chronic injury that occurred when playing softball, worsening over the past 2 months PRIOR: X-ray on April 30, 2025 FINDINGS: Rotator Cuff: There is a deep partial thickness undersurface tear versus full-thickness unretracted tear involving posterior supraspinatus tendon near the footprint. There is delamination extending into the tendon in addition 1.5 cm. Tears in the overlap region and minimally involves anterior infraspinatus tendon. Rotator cuff is intact otherwise. Labrum: Anterior superior labrum is somewhat indistinct and likely degenerated, frayed, and possibly torn. Long biceps tendon: The long biceps tendon is intact and not displaced from the groove. Acromioclavicular joint: There is no AC joint separation. There is no degenerative change. Acromial morphology is nearly flat, type I. There is borderline increased complex fluid in subacromial subdeltoid bursa. Axillary pouch: The axillary pouch is intact. Articular cartilage: There is mild thinning of articular cartilage in the medial humeral head Bones/Marrow: Mild reactive marrow signal changes present in the greater tuberosity adjacent to the rotator cuff tear. There is also a small enthesophyte in the same region. Soft tissues: There is no muscle edema or fatty replacement. MR/MR shoulder RT wo con IMPRESSION: There is a deep undersurface tear versus full thickness nonretracted tear involving supraspinatus tendon at the footprint, in the region that overlaps with anterior infraspinatus tendon. There is also 1.5 cm delamination tear extending medially into supraspinatus tendon. Degenerated, frayed, and likely torn anterosuperior labrum. Small mildly complex subacromial subdeltoid bursal effusion. 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 Electronically signed by: Cr Juarez MD 05/06/2025 10:09 AM EDT
--- OUTSIDE RECORDS SUMMARY | 2025-05-05 19:45 | XMS_ITS | Clinical Summary ---
Author Organization [facility] Address [address] [place] [address] Phone Care Team Providers Care Paper Guillotine Operator Name Role Phone Unavailable Primary Care Provider [...]
== END 2025-05-05 19:43 | disposition home or self-care (01) ==
LOC: HO.MRI 19:42
PROVIDERS: Visit Provider Orthopaedic Surgery
DX: M25.311 Other instability, right shoulder (principal)
CPT/HCPCS: 73221

== ENCOUNTER → 2025-05-05 19:55 | Outpatient (BNV) | payer OTHER, SELFPAY | PROVIDERS: Visit Provider Radiology Diagnostic Radiology | DX: M75.111 Incomplete rotator cuff tear or rupture of right shoulder, not specified as traumatic (principal) | CPT/HCPCS: 73221 ==

== ENCOUNTER 2025-05-20 16:54 | Outpatient (REF) | payer OTHER, SELFPAY ==
[2025-05-20 17:18] LABS: MANUAL DIFF FLAG NO
[2025-05-20 17:36] LABS: Hematocrit 41.8 % (37.0-47.0); Hemoglobin 13.5 g/dl (12.0-16.0); Imm Gran Abs Auto 0.01 X10*3/uL (0.00-0.03); Imm Gran Pct Auto 0.3 % (0.0-0.4); Lymphocytes Absolute Auto 1.2 X10*3/uL (1.2-4.9); Mean Corpuscular HGB Conc 32.3 g/dl (31.0-35.0); Mean Corpuscular Hemoglobin 30.3 pg (27.0-33.0); Mean Corpuscular Volume 93.7 fL (80.0-98.0); NRBC Abs Auto 0.000 X10*3/uL (0.0-0.012); NRBC Pct Auto 0.0 /100WBC (0.0-0.2); Platelet Count 147 X10*3/uL (160-400); Red Blood Count 4.46 X10*6/uL (4.20-5.50); White Blood Count 3.7 X10*3/uL (4.8-10.8)
--- OUTSIDE RECORDS SUMMARY | 2025-05-20 17:53 | XMS_ITS | Clinical Summary ---
Author Organization [facility] Address [address] [place] [address] Phone Care Team Providers Care First Sampler Name Role Phone Unavailable Primary Care Provider [...]
[2025-05-20 18:04] LABS: Alanine Aminotransferase 30 U/L (0-31); Albumin Level 4.5 g/dL (3.5-5.0); Alkaline Phosphatase 59 U/L (39-117); Anion Gap 13 (12-20); Aspartate Amino Transferase 16 U/L (5-31); Blood Urea Nitrogen 13 mg/dL (9-16); Calcium 9.9 mg/dL (8.4-10.2); Carbon Dioxide 27 mmol/L (22-29); Chloride 103 mmol/L (96-108); Estimated Glomerular Filt Rate > 60; Potassium 4.7 mmol/L (3.3-5.1); Sodium 138 mmol/L (135-145); Total Protein 7.7 g/dL (6.5-8.0)
[2025-05-20 18:11] LABS: Appearance Urine Clear; Glucose Urine UA Negative (Negative); PH 7.5 (5.0-9.0); Specific Gravity - Urine 1.015 (1.005-1.025)
== END 2025-05-20 16:55 | disposition home or self-care (01) ==
LOC: HO.LAB 16:54
PROVIDERS: Visit Provider Internal Medicine
DX: C56.9 Malignant neoplasm of unspecified ovary (principal)
CPT/HCPCS: 36415; 80053; 81003; 85025

== ENCOUNTER 2025-06-11 09:24 | Outpatient (REF) | payer OTHER, SELFPAY ==
--- NOTE | ~2025-06-11 | CT_ITS ---
CLINICAL HISTORY: Assess response to treatment, suspicion for progre CT chest with IV contrast. COMPARISON: CT chest dated 03/24/25 at 12:45 EDT FINDINGS: Visualized thyroid is unremarkable. No supraclavicular or axillary lymphadenopathy. Left-sided chest port tip terminates at the cavoatrial junction. Ascending aorta and main pulmonary artery are normal in caliber. Trace pericardial effusion. Normal esophagus. No mediastinal and hilar lymphadenopathy redemonstrated. For example right hilar lymph node measuring 1.5 x 1.4 cm (series 7, image 63), previously measured 1.2 x 0.9 cm. Ill-defined subcarinal lymph node measuring approximately 2.2 x 1.1 cm (series 7, image 64), previously measured 2.2 x 1.7 cm. Ill-defined AP window confluent lymphadenopathy measuring 3.1 x 3.3 cm in total (series 7, image 55), previously measured approximately 2.9 x 2.9 cm. No pleural effusion. No consolidation. Trachea and central airways are clear. No significant bronchial wall thickening. Bilateral pulmonary nodules redemonstrated. For example right upper lobe subpleural 1.8 x 1.0 cm (series 4, image 62), previously measured 1.3 x 0.9 cm. Right lower lobe subpleural 6 mm pulmonary nodule (series 4, image 100), stable. Right upper lobe subpleural 5 mm pulmonary nodule (series 4, image 28), stable. Left upper lobe 4 mm pulmonary nodule (series 4, image 29), stable. Left lower lobe 5 mm pulmonary nodule (series 4, image 112), stable. No new pulmonary nodule identified. Visualized portions of the upper abdomen are unremarkable. Mild midthoracic spondylosis. No acute fracture or suspicious bone lesion. IMPRESSION: 1. Increased size of dominant right upper lobe subpleural nodule measuring up to 1.8 cm. Remaining pulmonary nodules are stable. No new pulmonary nodule identified. 2. Similar to mildly increased size of multiple enlarged confluence mediastinal and hilar lymph nodes. This document has been electronically signed by: Woody Conroy MD on 06/11/2025 15:10:22
[2025-06-11] MEDS: iohexoL 350 MG/ML 100 ML INFUS..BTL IV (10:10)
--- OUTSIDE RECORDS SUMMARY | 2025-06-11 11:11 | XMS_ITS | Clinical Summary ---
Author Organization [facility] Address [address] [place] [address] Phone Care Team Providers Care Fishing Vessel Operator Name Role Phone Unavailable Primary Care [...]
== END 2025-06-11 09:25 | disposition home or self-care (01) ==
LOC: HO.CT 09:24
PROVIDERS: Visit Provider Internal Medicine
DX: C56.9 Malignant neoplasm of unspecified ovary (principal); M25.511 Pain in right shoulder
CPT/HCPCS: 71260; Q9967

== ENCOUNTER → 2025-06-11 09:27 | Outpatient (BNV) | payer OTHER, SELFPAY | PROVIDERS: Visit Provider Radiology Diagnostic Radiology | DX: R91.8 Other nonspecific abnormal finding of lung field (principal) | CPT/HCPCS: 71260 ==

== ENCOUNTER 2025-06-11 15:05 | Outpatient (AMB) | payer OTHER, SELFPAY ==
--- NOTE | 2025-06-11 15:07 | A.OFFVIS_ITS ---
Intake Visit Reasons: OV- Right Shoulder MRI Review Intake Note: Aysha is a 60 year old female who presents for follow-up of her right shoulder pain. The patient states that she has been doing stretching exercises. She also purchased a ?brace? for her right shoulder. She states that this point her symptoms are tolerable to her. Allergies No Known Allergies Allergy (Verified 06/11/25 15:10) Medication List - Last Reconciled 06/12/25 by Eron Candelaria MD ciprofloxacin HCl 250 mg PO BID dexamethasone 4 mg PO BID folic acid 1 mg PO DAILY multivitamin (Daily Multi-Vitamin tablet) 1 tab PO DAILY omeprazole 40 mg PO DAILY ondansetron 8 mg PO Q8H PFSH Surgical History Hx of hysterectomy Family History Maternal Uncle Lung cancer Social History Household Members: Spouse and Significant Other Are you a primary respite care provider to a significant other at home: No Do you presently have visiting nurse or other home services: No Alcohol intake: current Alcohol intake frequency: a few times a week Patient Tobacco Use Status: Never used Tobacco service: No Current occupational status: employed Gender identity: Female Physical Exam Const Other: Well-nourished well-developed very friendly female awake alert and oriented x3 in no acute distress Extrem Other: Right shoulder examination shows slightly decreased range of motion when compared to her left shoulder, 4+ out of 5 strength with supraspinatus testing, tenderness over her acromioclavicular joint, positive impingement signs, no instability Results Reviewed Results Reviewed: MRI of the patient's right shoulder shows moderate to severe acromioclavicular joint narrowing, a type 2 acromion, signal change within the supraspinatus tendon most likely due to adhesive capsulitis+ versus partial-thickness tearing-+-+ Assessment & Plan Assessment & Plan (1) Right shoulder pain: Code(s): M25.511 - Pain in right shoulder Category: Medical Plan Ms. Yadav presents with intermittent right shoulder pain due to impingement syndrome, acromioclavicular joint arthritis and adhesive capsulitis versus part ial-thickness rotator cuff tearing. I had a lengthy discussion with the patient regarding the treatment options. At this point her symptoms are tolerable to her. She will continue with her home stretching program. She will continue wearing her shoulder brace if it decreases her discomfort. She will follow up with me on an as-needed basis should her symptoms worsen in any way. I spent 22 minutes in reviewing the patient's records and imaging studies, seeing the patient and documenting in the medical record. Coding Level of Care Code Est Pt Level 3 (76425) Complex EM visit Add On G2211 Diagnoses Right shoulder pain M25.511
== END 2025-06-11 15:21 | disposition home or self-care (01) ==
LOC: HO.HOS 15:06
PROVIDERS: Visit Provider Orthopaedic Surgery
DX: M25.511 Pain in right shoulder (principal)
CPT/HCPCS: 99213

== ENCOUNTER 2025-07-17 09:00 | Day surgery (SDC) | payer OTHER, MEDICAID, SELFPAY ==
--- OUTSIDE RECORDS SUMMARY | 2025-07-03 15:28 | XMS_ITS | Clinical Summary ---
Author Organization [facility] Address [address] [place] [address] Phone Care Team Providers Care Flatwork Folder Name Role Phone Unavailable Primary Care Provider [...]
[2025-07-17] VITALS (17 sets, daily range): BP systolic 107–135; BP diastolic 58–90; PULSE 63–77; RESP 12–18; TEMP 36.3–36.7; O2SAT 96–100; BMI 22.8
--- NOTE | ~2025-07-17 | XR_ITS ---
EXAMINATION: XR CHEST 1 VIEW HISTORY: post lung biopsy COMPARISON: Comparison is made with the prior examination dated 05/19/2024. Correlation is also made with CT biopsy images performed earlier in the day. FINDINGS: A single AP portable view of the chest performed at 1:43 PM is submitted. A left-sided port is seen with its tip at the cavoatrial junction. Again seen is a nodule superimposed on the right hilum. There is subsegmental atelectasis at the right lung base. There is no pleural effusion, pneumothorax, or pulmonary vascular congestion. The heart is normal in size. The bones are intact. XR/XR chest 1V IMPRESSION: No pneumothorax after CT-guided right lung biopsy. Electronically signed by: Iggy Cabrera MD 07/17/2025 01:57 PM EDT
--- NOTE | ~2025-07-17 | CT_ITS ---
PROCEDURE: CT GUIDED BIOPSY, LUNG CLINICAL INFORMATION: Pulmonary nodules. History of ovarian cancer. COMPARISON: Previous chest CT most recent June 11, 2025 TECHNIQUE: Seizure and recent benefits including bleeding, infection and pneumothorax were discussed with the patient and informed consent was obtained. The patient was positioned in the supine position. Limited axial images through the chest were performed. The right upper anterior chest was prepped and draped in the usual sterile fashion. The skin and soft tissues were anesthetized with 1% lidocaine plain. Using CT guidance and a coaxial system, access to the right upper lobe nodule was obtained. 5 20-gauge core biopsies were obtained. Conscious sedation was provided by a registered nurse under my direct supervision with continuous hemodynamic monitoring. Patient received Versed 1.5 mg and fentanyl 75 mcg intravenously during the procedure. Total procedure time 29 minutes. DLP 221 mgy/cm This CT examination was performed using dose optimization techniques as appropriate, variously including the following: *Automated exposure control *Adjustment of mA and/or kV according to patient size (this includes techniques or standardized protocols for targeted exams where dose is matched to indication/reason for exam; i.e. extremities or head) *Use of iterative reconstruction technique FINDINGS: There is a 1.5 x 2 cm peripheral or subpleural anterior right upper lobe nodule that was targeted for biopsy. Images demonstrate adequate needle placement within the nodule. Postprocedure imaging demonstrates a trace overlying pneumothorax. This measures [address]/CT biopsy lung RT IMPRESSION: CT-guided right upper lobe lung biopsy. Electronically signed by: Cristina Gao MD 07/17/2025 01:44 PM EDT
[2025-07-17 09:36] LABS: INTERNATIONAL NORM RATIO 1.0 (0.9-1.1); Prothrombin Time 10.9 SEC (10.9-12.4)
== END 2025-07-17 14:18 | disposition home or self-care (01) ==
PROVIDERS: Radiology Diagnostic Radiology; PCP Internal Medicine; Visit Provider Nurse Practitioner Family
DX: C78.01 Secondary malignant neoplasm of right lung (principal); C56.9 Malignant neoplasm of unspecified ovary
CPT/HCPCS: 32408; 36415; 71045; 85610; 88305; 88341; 88342; 88360; 99152; 99153; J2003; J2250; J3010

== ENCOUNTER → 2025-07-17 10:29 | Outpatient (BNV) | payer OTHER, MEDICAID, SELFPAY | PROVIDERS: PCP Internal Medicine; Visit Provider Radiology Diagnostic Radiology | DX: R91.8 Other nonspecific abnormal finding of lung field (principal) | CPT/HCPCS: 32408; 71045 ==

== ENCOUNTER 2025-09-30 13:02 | Outpatient (REF) | payer OTHER, SELFPAY ==
--- OUTSIDE RECORDS SUMMARY | 2025-09-23 15:00 | XMS_ITS | Encounter Summary ---
Author Organization [facility] Address [address] [place] [address] Phone Care Team Providers Care Winder Tender Name Role Phone Vickey Robles MD Primary Care Provider + Verna Drake MD Unavailable [phone] Reason for Referral * Consultation (Within 1 month) - New Request Specialty Diagnoses / Procedures Referred By Jarett bueno Referred To Contact Diagnoses Malignant neoplasm of ovary, unspecified laterality Lisa Huerta MD [address] [facility] [employer] [id number] [place] [address] Phone: tel: fax: mailto:[email or web address] GENETICS AND PREVENTION REF [id number] Referral ID Status Reason Start Date Expiration Date V isits Requested Visits Authorized [id number] New Request 09/23/2025 09/23/2026 1 1 Encounter Details Date Type Department Care Team (Late st Contact Info) Description 09/23/2025 3:00 PM EST Office Visit [facility], [facility], [facility] [place] [facility] [place] [address] [address] Lisa Huerta MD [address] [facility] [employer] [address] [place] [address] [email or web address] Malignant neoplasm of ovary, unspecified laterality (Primary Dx) Social History Tobacco Use Types Packs/Day Years Used Date Smoking Tobacco: Never Assessed Child or Family Care Answer Date Record ed Do you have problems with on e of the following making it difficult for you to work, study, or receive health care? No 09/23/2025 Education Answer Date Recorded Are you interested in help w ith more adult education (for example, completing high school, GED, job training, learning the Senegalese language, technical skills, or developing parenting skills)? No 09/23/2025 Are you concerned about learning? Not on file 09/23/2025 No 09/23/2025 Yes 09/23/2025 Food Answer Date Recorded Within the past 6 months we worried whether our food would run out before we got money to buy more. Never True 09/23/2025 Within the past 6 months the food we bought just didn't last and we didn't have enough money to get more. Never True Residential Stability Answer Date Recor ded What is your housing situation today? I have getachew sing 09/23/2025 How many times have you move d in the past 12 months? Zero (I did not move) 09/23/2025 Paying for Meds Answer Date Recorded Do you have trouble paying for medicines? No 09/23/2025 Paying Utility Bills Answer Date Record ed Do you have trouble paying your heating or elect ricity bill? No 09/23/2025 Transportation Answer Date Recorded Has the lack of transportati on kept you from medical appointments or from getting medications? No 09/23/2025 Digital Access Answer Date Recorded No 09/12/2025 No 09/12/2025 Reliable internet access at home? Not on file 09/12/2025 Device with a working camera? Not on file Comments Unknown Sex and Gender Information Value Date Recorded Sex Assigned at Female 09/12/2025 12:38 PM EST Legal Sex Female 12:37 PM EST Gender Identity Female 09/12/2025 12:38 PM EST Sexual Orientation Straight 09/12/2025 12 :38 PM EST documented as of this encounter Last Filed Vital Signs Vital Sign Reading Time Taken Comments Blood Pressure 130/64 09/23/2025 3:01 PM EST Pulse 95 09/23/2025 3:01 PM EST Temperature 36.4 C (97.5 F) 09/23/2025 3:01 PM EST Respiratory Rate 18 09/23/2025 3:01 PM EST Oxygen Saturation 99% 09/23/2025 3:01 PM EST Inhaled Oxygen Concentration - - Weight 65.1 kg (143 lb 8.3 oz) 09/23/2025 3:01 P M EST Height 165 cm (5' 4.96 ) 09/23/2025 3:01 PM EST Body Mass Index 23.91 09/23/2025 3:01 PM EST documented in this encounter Progress Notes * Lisa Huerta MD - 09/23/2025 3:00 PM EST Images from the original note were not included. ?? FOAM RUBBER FABRICATOR MEDICAL ONCOLOGY OFFICE VISIT DATE OF VISIT: 09/23/2025 REFERRING MD: Dr. Verna Drake/EBEN Mcmanus ID/CC: Ms. Yadav is a 60 y.o. 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 FOAM RUBBER FABRICATOR ONCOLOGY CARE TEAM PRIMARY MEDICAL ONCOLOGIST: Lisa Huerta MD NURSE PRACTITIONER: Richa Culver NP FOAM RUBBER FABRICATOR ONC SURGEON: ONCOLOGY HISTORY ONCOLOGIC HISTORY: (for clinical reference) Oncology History No problem history exists. HGSOC: FIGO STAGE IIA - In 2018 - she presented with leaking fluid vaginally - 08/17/2018: SURGERY - HAN/BSO - 03/2024: P/w chest tightness, went to urgent care then went to the ER. CXR showed lung lesions. P/w suspicious RUL lung mass and mediastinal LAD - 05/14/24: CXR: indeterminate, ill-defined opacity over the right upper lung - 05/14/24: CT chest w contrast - lobular RUL mass et from anterolateral pleural to R suprahilar region, 3 mm. Bronch/bx - c/w metastatic mullerian primary - 06/11/24: PET CT scan - abnormal activity RUL - 07/21/24: C1D1 Carbo/taxol/erick - 10/21/24: Interval PET w good response to treatment --> erick maintenance - 06/11/25: Progressive disease in lung - 07/17/25: Biopsy of RUL - metastatic ovarian cancer; FOLR1 weak staining, 1+, <50% TCs - 07/30/25: C1D1 Carbo/[place] - 08/22/25: New FDG avid supraclavicular, mediastinal, hilar and pulmonary nodules c/w progressive disease - 09/23/25: Carbo/[place] INTERVAL HISTORY AND REVIEW OF SYSTEMS: 09/23/2025 Ms. Yadav presents with her significant other today. She received carboplatin/gemcitabine today after 3 days of prior neupogen shots. She presents with chronic cough. ECOG PS 0 Answers submitted by the patient for this visit: Review of Systems (Submitted on 09/23/2025) Night sweats:: Yes Feeling tired or fatigue:: Yes Cough:: Yes Vomiting:: Yes Muscle aches:: Yes Dizziness:: Yes Headaches:: Yes PAST MEDICAL HISTORY Active Ambulatory Problems Diagnosis Date Noted No Active Ambulatory Problems Resolved Ambulatory Problems Diagnosis Date Noted No Resolved Ambulatory Problems No Additional Past Medical History SOCIAL HISTORY: Social History Socioeconomic History Marital status: Single Spouse name: Not on file Number of children: Not on file Years of education: Not on file Highest education level: Not on file Occupational History Not on file Tobacco Use Smoking status: Not on file Smokeless tobacco: Not on file Substance and Sexual Activity Alcohol use: Not on file Drug use: Not on file Sexual activity: Not on file Other Topics Concern Not on file Social History Narrative Not on file Social Drivers of Health Residential Stability: Low Risk (09/23/2025) Residential Stability Family situation today data: I have housing Number of times moved in last year: Zero (I did not move) 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 ALLERGIES: Not on File TODAY'S VISIT VITALS: Vitals: 09/23/25 1501 BP: 130/64 Pulse: 95 Resp: 18 Temp: 36.4 ??C (97.5 ??F) SpO2: 99% PHYSICAL EXAMINATION: Gen: Well-appearing, no acute distress Skin: No rash HEENT: PERRL, MMM, OP clear Neck: Supple Lymph: No cervical or supraclavicular adenopathy Card: RRR Pulm: CTA bilaterally Abd: NDNT. NABS Ext: Warm, no edema Neuro: Normal, A&O x3 LABS: PATHOLOGY Final Pathologic Diagnosis CONSULT MATERIAL RECEIVED FROM [facility], [place], [place]: A. FNA; LYMPH NODE, STATION 7, FINE NEEDLE ASPIRATION ([id number]; 05/28/2024): POSITIVE FOR MALIGNANT CELLS. 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 Immunohistochemistry performed at the outside institution and reviewed at [facility] demonstrates the following staining profile in lesional cells: Positive: CK7 (focal), WT1, PAX8, p53 (mutant pattern), Negative: TTF1, napsin and CK20. 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 B. LUNG, RIGHT; LUNG, RIGHT UPPER LOBE, BIOPSY ([id number]; 07/17/2025): POSITIVE FOR MALIGNANT CELLS. Adenocarcinoma, consistent with metastasis from Mullerian primary. Immunohistochemistry performed at the outside institution and reviewed at [facility] demonstrates the following staining profile in lesional cells: Negative: Her2 (1+) Per report, immunohistochemistry performed at the outside institution shows the following staining profile in lesional cells: Positive: CK7, PAX8 Negative: TTF1 IMAGING 08/25/[address] Skull to Mid Thigh Subsequent Order: [id number] Impression 1. New FDG avid left intraparotid lymph node, supraclavicular lymph nodes, mediastinal and hilar lymph nodes, pulmonary nodules in keeping with progression 2. New nonspecific activity within the liver which may represent volume averaging with underlying bone marrow activity or new liver lesions 3. New nonspecific activity along the vaginal cuff. ASSESSMENT/PLAN Ms. Yadav is a 60 y.o. 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 Currently on carbo/gem, with possible progression. FOLR1 negative (~5% per her primary oncologist). 1. Malignant neoplasm of ovary, unspecified laterality (Primary) - Ambulatory referral to [facility] Genetics and Prevention to evaluate BRCA2 VUS - Continue with current regimen for additional 2-3 cycles then repeat imaging to assess response, as initial imaging was only after one cycle of carbo/gem - Screened for clinical trials, eligible for our HER2 specific trials, including 25- Sara-Hdazgkx06 maintenance if she responds to chemotherapy or has stable disease, and - [employer]. - Informed consent provided for Roselyn-S clinical trial. - Also eligible for 21-151: [id number] + Olaparib (biopsy required) - Would test for HRD positivity - unclear how BRCA2 VUS impacts the score Addendum: discussed her case with primary oncologist, Dr. Drake. She will repeat scans for Aysha and if she is progressing, will reach out to us. We discussed that 21-151 might be a good option for Aysha. Dispo: RTC as needed Total time spent on 09/23/2025 for this visit in egnk-qm-tcbv and non xhbd-vl-jylc time reviewing, documenting, and obtaining, clinical information, coordinating with the care team and/or other specialists, and counseling the patient: 55 minutes. Lisa Huerta MD, [place] Medical FOAM RUBBER FABRICATOR Oncology Attending documented in this encounter Plan of Treatment Upcoming Encounters Date Type Department Care Team (Late st Contact Info) Description 11/04/2025 11:00 AM EST Telemedicine Center for Cancer Genetics and [facility], [facility] [address] [place] [address], 10th [place] [address] Mago Stratton MD, MPH [address] [place] [address] [email or web address], [facility] [address] [place] [address] [email or web address] Scheduled Referrals Name Type Priority Associated Diagnoses Orde r Schedule Ambulatory referral to [facility] Genetics and Prevention Outpatient Referral Routine Malignant neoplasm of ovary, unspecified laterality Ordered: 09/23/2025 documented as of this encounter Visit Diagnoses Diagnosis Malignant neoplasm of ovary, unspecified laterality- Primary documented in this encounter Care Teams Winder Tender Relationship Specialty Start Date End Date Vickey Robles MD [address] [place] [id number] PCP - General Internal Medicine 09/12/25 Verna Drake MD [address] [place] [address] Referring Physician Internal Medicine 09/12/25 documented as of this encounter Additional Source Comments The information contained in this document represents components of the legal health record. It is not the complete legal health record.[facility]
--- NOTE | ~2025-09-30 | CT_ITS ---
EXAMINATION: CT ANGIOGRAM NECK and CTA chest. CLINICAL INFORMATION: Swelling of neck and upper chest. COMPARISON: CT chest with IV contrast 06/11/2025. TECHNIQUE: Following intravenous administration of 100 mL of Omnipaque 350, CTA neck and chest was obtained at 5 and axial cuts and reformatted 2 mm thin sagittal and coronal images. This CT examination was performed using dose optimization techniques as appropriate, variously including the following: *Automated exposure control *Adjustment of mA and/or kV according to patient size (this includes techniques or standardized protocols for targeted exams where dose is matched to indication/reason for exam; i.e. extremities or head) *Use of iterative reconstruction technique DLP: 159 FINDINGS: CTA chest: 06/11/2025. Vascular: The thoracic aorta is of normal caliber with normal vessel branching. No aneurysm or dissection seen. The pulmonary artery and its branches are well-opacified without any intraluminal filling defect or narrowing. Heart size is normal. No pericardial effusion seen.] There is a left central venous port with its tip in proximal to mid SVC but the SVC is not opacified as there contrast injected through the catheter and not from right upper extremity. A clot or compromise of SVC cannot be excluded. . Nonvascular: Central trachea and the bronchi are widely patent. The thyroid lobes are symmetric and normal. There is a soft tissue adenopathy seen in the anterior mediastinum and bilateral hilar regions which appears worse compared to previous CT chest exam 06/11/2025. Central trachea and the bronchi are widely patent. The lungs are well-expanded and clear acute pneumonic process. There is a 2 cm nodule right upper lobe image 27/3. Previously measured 1.7 cm. There is a 5 mm nodule in the right lower lobe superior segment adjacent to major fissure on axial image 28/3. There has increased in size in addition lobules in the right upper lobe medially on axial image 28/3, left lower lobe pleural-based axial image 35/3 left lung base axial image 42/3. These nodules are stable. There are additional previously seen nodules which have increased in size right lower lobe pleural-based axial image 37/3. There is airspace consolidation right lower lobe. There is no pleural effusion, thickening or calcification. Visualized liver, spleen, pancreas appears unremarkable. The upper thoracic abdominal aorta is normal. IVC is not opacified. CTA NECK: Vascular: There is a three-vessel branching of the aortic arch. Origins of right subclavian, left common carotid and left subclavian arteries are widely patent. Origins of bilateral carotid arteries and bilateral vertebral arteries are patent as well. The common carotid artery is patent in the neck extending to the carotid bulb and bifurcation. There is normal bilateral RCCA into ICA and ECA. Both internal carotid arteries are patent throughout the neck. Both vertebral arteries are patent throughout the neck as well extending into the posterior fossa. Nonvascular: The central trachea and the bronchi is widely patent. Thyroid lobes are symmetrical. The left piriform sinuses obliterated likely secondary to a soft tissue mass in the left para laryngeal soft tissues there are numerous small lymph nodes seen in the neck not optimally visualized on this CT angiogram. Bilateral paranasal sinuses and mastoid air sinuses are well-aerated. Visualized intracranial brain parenchyma and the vasculature is intact. Bilateral parotid and submandibular glands are normal. CT/CT angio neck IMPRESSION: No evidence of PE. There is a left central venous port with its tip in mid SVC. There is no contrast visualized in SVC to evaluate SVC obstruction, compression or thrombus. No delayed phase was performed. Contrast injection through the right upper extremity is performed to evaluate SVC obstruction. Diffuse mediastinal and hilar adenopathy which has increased in size since the last CT chest exam 06/11/2025. Multiple lung nodules. The largest lung nodule right upper lobe has increased in size some of the small lung nodules have increased in size as well. Unremarkable CTA neck exam. Small shotty lymph nodes are seen in bilateral neck, nonspecific. Results were discussed with after the exam at 3:00 PM. Fleischner guidelines were followed. Electronically signed by: Ruslan Armendariz MD 09/30/2025 03:25 PM [facility] [place]
--- NOTE | ~2025-09-30 | CT_ITS ---
EXAMINATION: CT CHEST ANGIOGRAPHY WITH IV CONTRAST INDICATION: Persistent cough and shortness of breath COMPARISON: Previous chest CT most recent June and July 2025 TECHNIQUE: Helical CT scan of the chest was performed following administration of intravenous contrast (65 mL Omnipaque 350). The contrast bolus was timed to optimally opacify the pulmonary arteries. Thin sections were obtained through the pulmonary arteries. Coronal and sagittal reformatted images were generated. 3D/MIP reconstructed images are also obtained and reviewed. This CT exam was performed with one or more of the following dose reduction techniques: automated exposure control, adjustment of the mA and/or kV according to patient size, use of iterative reconstruction technique. DLP: 110 mGy-cm CHEST: Left jugular port with tip projecting in the SVC. THYROID: The thyroid gland is unremarkable. PULMONARY ARTERIES: Good opacification of the pulmonary arteries. No intraluminal filling defects are identified within the pulmonary arteries to suggest pulmonary emboli. The pulmonary arteries are normal in size, main pulmonary artery measuring 2.6 cm. LUNGS: There are multiple bilateral pulmonary nodules. These do not appear appreciably changed are most recent July 2025 exam but appear increased from earlier June 2025 exam.. Largest pulmonary nodule measures 2.1 cm in the right upper lobe axial image 66 series 4. There are innumerable smaller pulmonary nodules. Next largest right pulmonary nodule measures 10 mm in the right lower lobe axial image 94 series 4. Largest left pulmonary nodule measures 5 mm in the left lower lobe axial image 105 and 107 series 4. There is new patchy airspace disease, groundglass attenuation and interlobular septal thickening seen at the right base in the right lower lobe and to a lesser extent in the right middle lobe. There is bronchial wall thickening, right lung greater than left. Central airways are clear. MEDIASTINUM: There is diffuse infiltrative soft tissue seen throughout the mediastinum, probably representing diffuse mediastinal lymphadenopathy. This does not appear appreciably changed from most recent July 2025 exam but creased from older June 2025 exam. No thyroid nodule. CORNELL: There is bilateral hilar lymphadenopathy, right greater than left. This does not appear appreciably changed. CARDIOVASCULATURE: The heart is normal in size. There is a small pericardial effusion. The thoracic aorta is normal in caliber. DEGREE OF CORONARY CALCIFICATION: none PLEURA: There is a new small right pleural effusion. There is no left pleural effusion. No pneumothorax. MAIN AIRWAYS: The mainstem bronchi and proximal branches are patent. AXILLA: Bilateral axillary lymphadenopathy, left greater than right. Left axillary lymph nodes are upper normal in size. No chest wall mass. UPPER ABDOMEN: The visualized portions of the liver, spleen, and adrenals are unremarkable. BONES AND SOFT TISSUES: Degenerative changes of the spine. There is bilateral supraclavicular lymphadenopathy. Largest lymph node is a left supraclavicular lymph node measuring 2 cm. this is not completely included in field of view on prior exam but may be increased. CT/CT angio chest PE protocol IMPRESSION: No evidence of pulmonary emboli. Stable bilateral pulmonary nodules, largest in the right upper lobe. New patchy consolidative opacities and groundglass attenuation and interlobular septal thickening in the right lower lobe and to a lesser extent the right middle lobe. Diffuse right-sided bronchial wall thickening. This may represent pneumonia. Differential would include lymphangitic tumor spread and asymmetric pulmonary edema. Stable extensive diffuse mediastinal and bilateral hilar lymphadenopathy from most recent July 2025 exam. This appears increased from earlier June 2025 exams. Significant bilateral supraclavicular lymphadenopathy, left greater than right. This may be increased as well. Electronically signed by: Cristina Gao MD 09/30/2025 03:04 PM [facility]
--- OUTSIDE RECORDS SUMMARY | 2025-09-30 16:56 | XMS_ITS | Encounter Summary ---
Author Organization [facility] Address [address] [place] [address] [place] [address] Phone Care Team Providers Care Director Of Scout Work Name Role Phone Vickey Robles MD Primary Care Provider + Verna Drake MD Unavailable [phone] Reason for Visit * Reason Onset Date Comments Care Coordination 09/30/2025 Encounter Details Date Type Department Care Team (Late st Contact Info) Description 09/30/2025 Telephone Center for Gynecologic Oncology, [facility], [facility] [address] [place] [address], 10[address] [place] [address] Carol Rivera, MARA [address] [place] [address] [email or web address] Care Coordination Social History Tobacco Use Types Packs/Day Years [...] high school, GED, job training, learning the Finnish language, technical skills, or developing parenting skills)? [...] your housing situation today? I have getachew bonds 09/23/2025 How many times have you move [...] PM EST documented as of this encounter Progress Notes * Carol Rivera, RN - 09/30/2025 1:07 PM EST Call returned to patient's primary oncologist, Dr. Verna Drake from [facility]. She mentioned they performed FOLR1 testing twice which was 0% negative and HER2 was negative. Dr. Drake asked about next treatment options and if patient should proceed with Taxol and pembro or if she is eligible for any clinical trials. I let Dr. Drake know that Dr. Huerta is away this week and can touch base upon her return. Message sent to Dr. Huerta. Carol SHIN, HARNESSMAKER Oncology Nurse Navigator documented in this encounter Plan of Treatment Upcoming Encounters Date Type Department Care Team (Late st Contact Info) Description 11/04/2025 11:00 AM EST Telemedicine [facility] Genetics and [facility], [facility] [address] [facility], 10th [place] [address] Mago Stratton MD, MPH [address] [place] [phone] [email or web address] Marcie Lorenzo, [address] [address] [email or web address] documented as of this encounter Visit Diagnoses Not on filedocumented in this encounter Care Teams Director Of Scout Work Relationship Specialty Start Date End Date Vickey Robles MD [address] [place] [phone] PCP - General Internal Medicine 09/12/25 Verna Drake MD [address] [place] [phone] [email or web address] Referring Physician Internal Medicine 09/12/25 documented as of this encounter Additional Source Comments The information contained in this document represents components of the legal health record. It is not the complete legal health record.[facility]
--- OUTSIDE RECORDS SUMMARY | 2025-09-30 16:56 | XMS_ITS | Encounter Summary ---
Author Organization [facility] Address [address] [facility] [address] [place] [phone] Phone Care Team Providers Care Multiple Pressure Riveter Operator Name Role Phone Vickey Robles MD Primary Care Provider + Verna Drake MD Unavailable Encounter Details Date Type Department Care Team (Late st Contact Info) Description 09/23/2025 Orders Only [facility], [facility], [facility] [place] [address] [place] [address], 10th [address] [place], [place] [phone] Lisa Huerta MD [address] [place] [address] [id number] [place] [address] [email or web address] Gynecologic cancer Social History Tobacco Use Types Packs/Day Years [...] high school, GED, job training, learning the Dutch language, technical skills, or developing parenting skills)? [...] PM EST documented as of this encounter Plan of Treatment Upcoming Encounters Date Type Department Care Team (Late st Contact Info) Description 11/04/2025 11:00 AM EST Telemedicine [facility], [facility] [place] [address] [place] [address], 10th [place] [address] Mago Stratton MD, MPH [address] [place] [phone] [email or web address] Marcie Lorenzo, [facility] [address] [place] [address] [email or web address] documented as of this encounter Procedures Procedure Name Priority Date/Time Associated Diagnosis Comments OUTSIDE PATHOLOGY REVIEW/CONSULT Routine 09/23/2025 12:28 PM EST Gynecologic cancer TISSUE EXAM Routine 05/28/2024 Gynecologic cancer documented in this encounter Results * Outside Pathology Review/Consult (09/23/2025 12:28 PM EST) Consult Auto Resulting Yes 09/23/2025 12:35 PM EST [facility] Consult 09/23/2025 12:2 8 PM EST 09/23/2025 12:28 PM EST us Lisa Huerta MD LAB PATHOLOGY ORDERABLES Final R esult [facility] [address] [place] [address] * Tissue Exam (05/28/2024) Final Pathologic Diagnosis CONSULT MATERIAL RECEIVED FROM [facility], [place], [place]: A. FNA; LYMPH NODE, STATION 7, FINE NEEDLE ASPIRATION ([id number]; 05/28/2024): POSITIVE FOR MALIGNANT CELLS. 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 Immunohistochemistry performed at the outside institution and reviewed at [facility] demonstrates the following staining profile in lesional cells: Positive: CK7 (focal), WT1, PAX8, p53 (mutant pattern), Negative: TTF1, napsin and CK20. 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 B. LUNG, RIGHT; LUNG, RIGHT UPPER LOBE, BIOPSY ([id number]; 07/17/2025): POSITIVE FOR MALIGNANT CELLS. Adenocarcinoma, consistent with metastasis from Mullerian primary. Immunohistochemistry performed at the outside institution and reviewed at [facility] demonstrates the following staining profile in lesional cells: Negative: Her2 (1+) Per report, immunohistochemistry performed at the outside institution shows the following staining profile in lesional cells: Positive: CK7, PAX8 Negative: TTF1 09/26/2025 11:25 AM EST [facility] SURGICAL PATHOLOGY at 1125 EST Clinical History 59F with RUL mass. 09/26/2025 11:25 AM EST [facility] SURGICAL PATHOLOGY Materials Received Consult slides received from [facility], [place], [place]: A. FNA; LYMPH NODE, STATION 7, FINE NEEDLE ASPIRATION [id number] - 05/28/2024 Blocks: 0 Stained Slides: 21 Number of Unstained Slides: 0 B. Lung, Right; LUNG, RIGHT UPPER LOBE, BIOPSY [id number] - 07/17/2025 Blocks: 0 Stained Slides: 5 Number of Unstained Slides: 0 09/26/2025 11:25 AM EST [facility] SURGICAL PATHOLOGY Result Priority Level Routine 09/26/2025 11:25 AM EST [facility] Disclaimer By their signature above, the pathologist listed as making the Final Diagnosis certifies that they have personally reviewed the case and confirmed the diagnosis. All slides and stains were of sufficient quality to establish the diagnosis, unless otherwise stated. Due to loss of elastic tension and/or tissue shrinkage in formalin, the clinical sizes of tissue specimens may be larger than those provided in this report. 09/26/2025 11:25 AM EST [facility] PATHOLOGY Consult (FNA) 05/28/2024 09/23/2025 12:28 PM EST Consult (Lung, Right) 07/17/2025 09/24/2025 9:56 AM EST us Lisa Huerta MD LAB PATHOLOGY ORDERABLES Final R esult [facility] SURGICAL PATHOLOGY [address] [place] [phone] documented in this encounter Visit Diagnoses Diagnosis Gynecologic cancer documented in this encounter Care Teams Multiple Pressure Riveter Operator Relationship Specialty Start Date End Date Vickey Robles MD [address] [place] [phone] PCP - General Internal Medicine 09/12/25 Verna Drake MD [address] [place] [phone] [email or web address] Referring Physician Internal Medicine 09/12/25 documented as of this encounter Additional Source Comments The information contained in this document represents components of the legal health record. It is not the complete legal health record.[facility]
--- OUTSIDE RECORDS SUMMARY | 2025-09-30 16:56 | XMS_ITS | Clinical Summary ---
Author Organization [facility] Address [address] [place] [address] Phone Care Team Providers Care Lumber Stacker Name Role Phone Unavailable Primary Care Provider Unavailabl e Encounters Date Type Department Care Team Description 08/22/2025 2:00 PM EST - 08/22/2025 11:59 PM EST Hospital Encounter [facility] PET Scan [address] [place] [id number] History of ovarian cancer Discharge Disposition: Home or Self Care from [...] Last Done Comments Breast Cancer Screening 1967 Colorectal Cancer Screening: Colonoscopy 1967 DTaP,Tdap,and Td Vaccines (1 - Tdap) 1986 Hepatitis B Vaccines (1 of 3 - 19+ 3-dose series) 1986 Cervical Cancer Screening: P ap Smear 01/30/1988 Pneumococcal Vaccine: 50+ Ye ars (1 of 1 - PCV) 2017 Zoster Vaccines (1 of 2) 2017 HIV Screening 07/11/2024 Hepatitis C Screening 07/11/2024 Social Influencers of Health Screening 07/11/2024 Depression Screening 10/02/2024 COVID-19 Vaccine (1 - 2024-2 6 season) 2025 Influenza Vaccine (#1) 2025 RSV Immunization Adult Patie nts (1 - 1-dose 75+ series) 2042 HIB Vaccines Aged Out No longer eligi [...] CT SKULL TO MID THIGH SUBSEQUENT Routine 08/22/2025 4:16 PM EST History of ovarian cancer from Last 3 Months Results * PET CT Skull to Mid Thigh Subsequent (08/22/2025 4:16 PM EST) Anatomical Region Laterality Modality Body Radiographic [place] ging 08/25/2025 2:18 PM EST Impressions 08/25/2025 3:26 PM EST 1. New FDG avid left intraparotid lymph node, supraclavicular lymph nodes, mediastinal and hilar lymph nodes, pulmonary nodules in keeping with progression 2. New nonspecific activity within the liver which may represent volume averaging with underlying bone marrow activity or new liver lesions 3. New nonspecific activity along the vaginal cuff. Please note: The CT was acquired at a low radiation dose settings. The images are of nondiagnostic quality and used solely for purposes of attenuation correction and slice localization for the PET scan. If a diagnostic CT study is desired it must be ordered separately. -------- FINAL REPORT -------- Dictated By: Vale Tobar Dictated Date: 08/25/2025 14:18 ET Assigned Physician: Vale Tobar Reviewed and Electronically Signed By: Vale Tobar Signed Date: 08/25/2025 15:26 ET Workstation ID: [id number] Transcribed By: Self Edit Transcribed Date: 08/25/2025 14:18 ET Narrative 08/25/2025 3:26 PM EST INDICATION: Metastatic ovarian cancer with right upper lobe lung mass and lymph node biopsy demonstrating metastatic disease. Restaging.. TECHNIQUE: FDG PET-CT imaging was performed from [...] a true diagnostic CT examination. Enteric contrast was administered. DLP: 441 mGy-cm Radiopharmaceutical: 11.0 mCi of F-18 FDG IV. Blood glucose: 92 mg/dl. COMPARISON: Prior PET/CT October 2024 FINDINGS: HEAD AND NECK: New 7 mm FDG avid left intraparotid lymph node SUV max 8.1. Asymmetric activity along the right vocal cord SUV Max 4.7 (contralateral left SUV max 3.1). This may represent vocal cord paralysis. New FDG avid supraclavicular lymph nodes SUV max 11.7 on the left and 4.6 on the right. THORAX: Increase in size of FDG avid pulmonary nodules, the largest in the right upper lobe measuring up to SUV Max 12.3 (previously 1.2). Increased/new FDG avid mediastinal and hilar lymphadenopathy. For example, new anterior mediastinal lymph nodes SUV max 12.2, right paratracheal SUV max 10.2 (previously 3.5), subcarinal SUV max 9.6 (previously 4.1), right hilar SUV max 12.9 (previously 3.2), prevascular SUV Max 9.6, left hilar SUV max 9.2 and left internal mammary SUV max 4.5. ABDOMEN/PELVIS: New focal areas of FDG activity in the right hepatic lobe measuring up to SUV Max 4.1 which may represent volume averaging with underlying osseous activity or liver lesions. New nonspecific activity along the vaginal cuff SUV Max 9.2. New nonspecific diffuse increased splenic activity SUV max 3.8. MUSCULOSKELETAL: Diffuse increased bone marrow activity SUV max 13.8 likely representing bone marrow activation. Procedure Note Vale Tobar MD - 08/25/2025 INDICATION: Metastatic ovarian cancer with right upper lobe lung mass andlymph node biopsy demonstrating metastatic disease. Restaging.. TECHNIQUE: FDG PET-CT imaging was performed from the skull bases throughthe thighs in a single acquisition with data set reconstructed in axial,coronal, and sagittal planes at the computer workstation with fused datafrom both the PET imaging study and attenuation correction CT. The CTportion of the examination was done strictly for attenuation correctionand is not a true diagnostic CT examination. Enteric contrast wasadministered. DLP: 441 mGy-cm Radiopharmaceutical: 11.0 mCi of F-18 FDG IV. Blood glucose: 92 mg/dl. COMPARISON: Prior PET/CT October 2024 FINDINGS: HEAD AND NECK: New 7 mm FDG avid left intraparotid lymph node SUV max 8.1. Asymmetric activity along the right vocal cord SUV Max 4.7 (contralateralleft SUV max 3.1). This may represent vocal cord paralysis. New FDG avid supraclavicular lymph nodes SUV max 11.7 on the left and 4.6on the right. THORAX: Increase in size of FDG avid pulmonary nodules, the largest in theright upper lobe measuring up to SUV Max 12.3 (previously 1.2). Increased/new FDG avid mediastinal and hilar lymphadenopathy. Forexample, new anterior mediastinal lymph nodes SUV max 12.2, rightparatracheal SUV max 10.2 (previously 3.5), subcarinal SUV max 9.6(previously 4.1), right hilar SUV max 12.9 (previously 3.2), prevascularSUV Max 9.6, left hilar SUV max 9.2 and left internal mammary SUV max4.5. ABDOMEN/PELVIS: New focal areas of FDG activity in the right hepatic lobemeasuring up to SUV Max 4.1 which may represent volume averaging withunderlying osseous activity or liver lesions. New nonspecific activity along the vaginal cuff SUV Max 9.2. New nonspecific diffuse increased splenic activity SUV max 3.8. MUSCULOSKELETAL: Diffuse increased bone marrow activity SUV max 13.8likely representing bone marrow activation. IMPRESSION: 1. New FDG avid left intraparotid lymph node, supraclavicular lymphnodes, mediastinal and hilar lymph nodes, pulmonary nodules in keepingwith progression 2. New nonspecific activity within the liver which may represent volumeaveraging with underlying bone marrow activity or new liver lesions 3. New nonspecific activity along the vaginal cuff. Please note: The CT was acquired at a low radiation dose settings. The images are ofnondiagnostic quality and used solely for purposes of attenuationcorrection and slice localization for the PET scan. If a diagnostic CTstudy is desired it must be ordered separately. -------- FINAL REPORT -------- Dictated By: Vale Tobar Dictated Date: 08/25/2025 14:18 ET Assigned Physician: Vale Tobar Reviewed and Electronically Signed By: Vale Tobar Signed Date: 08/25/2025 15:26 ET Workstation ID: [id number] Transcribed By: Self Edit Transcribed Date: 08/25/2025 14:18 ET Verna Drake MD [facility] PROCEDURES Final Result from Last [address] [place] [address] [facility]
--- OUTSIDE RECORDS SUMMARY | 2025-09-30 16:56 | XMS_ITS | Clinical Summary ---
Author Organization [facility] Address [address] [place] [phone] Phone Care Team Providers Care Extrusion Process Operator Name Role Phone Vickey Robles MD Primary Care Provider + Verna Drake MD Unavailable [phone] Medications multivitamins with iron Tab Take 1 tablet by mouth. 05/22/2024 Active folic acid (FOLVITE) 1 MG tablet Take by mouth. 06/13/2024 Active cholecalciferol (VITAMIN D3) 5,000 unit tablet Take by mouth. Active Active Problems Problem Noted Date Diagnosed Date Ovarian cancer 09/23/2025 Mass of upper lobe of right lung 09/23/2025 Overview (09/23/2025): (Lobulated RUL mass from anterolateral pleaur to right suprahilar region contiguous with nodular horizontal fissure measuring 3.5cm - 05/14/[address]) Mediastinal lymphadenopathy 09/23/2025 Encounters Date Type Department Care Team Description 09/30/2025 Telephone [facility], [facility], [facility] [place] [address] [facility], 10th [place] [address] Carol Rivera, MARA Care Coordination 09/23/2025 3:00 PM EST Office Visit [facility], [facility], [facility] [place] [facility] [place] [address] [facility] 4th [place] [address] Lisa Huerta MD Malignant neoplasm of ovary, unspecified laterality (Primary Dx) 09/23/2025 Orders Only [facility], [facility], [facility] [address] [facility], [address] [place] [address] Lisa Huerta MD Gynecologic cancer 09/19/2025 Ancillary Orders DF IMG OUTSIDE IMG [address] [place] [phone] Lisa Huerta MD 09/19/2025 Orders Only [facility], [facility], [address] [facility], [address] [place] [address] Lisa Huerta MD Gynecologic cancer (Primary Dx) 09/18/2025 Ancillary Orders DF IMG OUTSIDE IMG [address] [place] [address] Lisa Huerta MD 09/18/2025 Ancillary Orders DF IMG OUTSIDE IMG [address] [place] [phone] Lisa Huerta MD 09/18/2025 Ancillary Orders DF IMG OUTSIDE IMG [address] [place] [phone] Lisa Huerta MD 09/18/2025 Ancillary Orders DF IMG OUTSIDE IMG [address] [place] [phone] Lisa Huerta MD 09/18/2025 Orders Only [facility], [facility], [facility] [address] [facility], [address] [place] [address] Lisa Huerta MD Gynecologic cancer (Primary Dx) 09/16/2025 Orders Only [facility], [facility], [facility] [address] [facility] [place] [address] Lisa Huerta MD Gynecologic cancer (Primary Dx) 08/22/2025 Ancillary Procedure DF IMG OUTSIDE IMG [address] [place] [address] Lisa Huerta MD from Last 3 Months Social History Tobacco [...] high school, GED, job training, learning the Mongolian language, technical skills, or developing parenting skills)? [...] Orientation Straight 09/12/2025 12 :38 PM EST Last Filed Vital Signs Vital Sign Reading [...] Mass Index 23.91 09/23/2025 3:01 PM EST Plan of Treatment Upcoming Encounters Date Type Department Care Team (Late st Contact Info) Description 11/04/2025 11:00 AM EST Telemedicine [facility], [facility] [place] [address] [place] [address], 10[address] [place] [address] Mago Stratton MD, MPH [address] [place] [phone] [email or web address] Marcie Lorenzo, [facility] [address] [place] [address] [email or web address] Maintenance Due Date Last Done Comments Adult Td,Tdap Booster 1967 LIPID PANEL 1967 DEPRESSION SCREENING 1979 SMOKING Hx and SMOKELESS TOB ACCO SCREENING 01/30/1980 HEPATITIS C SCREENING 1985 HIV ONE-TIME SCREENING (18-6 5 YEARS) 1985 PNEUMOCOCCAL VACCINES (50+ y ears) (1 of 2 - PCV) 1986 ZOSTER VACCINES (1 of 2) 1986 PAP SMEAR 01/30/1988 MAMMOGRAM 2007 COLOGUARD 01/30/2012 COLONOSCOPY 01/30/2012 COLORECTAL CANCER SCREENING 01/30/2012 FIT TEST 01/30/2012 FOBT 01/30/2012 SIGMOIDOSCOPY 01/30/2012 VIRTUAL COLONOSCOPY 01/30/2012 INFLUENZA VACCINE (#1) 2025 COVID-19 VACCINE ( - 2024-2 6 season) 2025 RSV VACCINE (1 - 1-dose 75+ series) 2042 HEPATITIS A VACCINES Aged Out No long er eligible based on patient's age to complete this topic HIB VACCINES Aged Out No longer eligi ble based on patient's age to complete this topic MENINGOCOCCAL VACCINES (ACWY) Aged Out No longer eligible based on patient's age to complete this topic MENINGOCOCCAL VACCINES (B) Aged Out N o longer eligible based on patient's age to complete this topic Medical Devices Not on file Procedures Procedure Name Priority Date/Time Associated Diagnosis Comments OUTSIDE PATHOLOGY REVIEW/CONSULT Routine 09/23/2025 12:28 PM EST Gynecologic cancer OUTSIDE LAB 09/08/2025 OUTSIDE IMAGING 08/22/2025 NM PET WHOLE BODY OUTSIDE (NO INTERPRETATION) Routine 08/22/2025 12:00 AM EST OUTSIDE IMAGING 08/22/2025 OUTSIDE PATHOLOGY 07/17/2025 from Last 3 Months Results * Outside Pathology Review/Consult (09/23/2025 12:28 PM EST) Consult Auto Resulting Yes 09/23/2025 12:35 PM EST [facility] Consult 09/23/2025 12:2 8 PM EST 09/23/2025 12:28 PM EST us Lisa Huerta MD LAB PATHOLOGY ORDERABLES Final R esult [facility] [address] [place] [phone] * Outside Lab (Non-MGB) (09/08/2025) us Scanning Interface Provider LAB BLOOD BKR ORDERA BLES Final Result * Outside Imaging Report Only (08/22/2025) us Scanning Interface Provider IMG XR CHEST Rae l Result * Outside Imaging Report Only (08/22/2025) us Scanning Interface Provider IMG XR CHEST Rae l Result * NM PET Whole Body Outside (No Interpretation) (08/22/2025 12:00 AM EST) Narrative CHRISTIANA - 09/18/2025 3:42 PM EST This study is for PACS storage only and not for interpretation. us Lisa Huerta MD IMG OUTSIDE IMAGING W/OUT INTERP RETATION Final Result [id number] * Outside Pathology (07/17/2025) us Scanning Interface Provider PATHOLOGY ORDERABLES Final Result from Last 3 Months Insurance [employer] Care Teams Extrusion Process Operator Relationship Specialty Start Date End Date Vickey Robles MD [address] [place] [phone] PCP - General Internal Medicine 09/12/25 Verna Drake MD [address] [place] [phone] [email or web address] Referring Physician Internal Medicine 09/12/25 Additional Source Comments The information contained in this document represents components of the legal health record. It is not the complete legal health record.[facility]
== END 2025-09-30 13:03 | disposition home or self-care (01) ==
LOC: HO.CT 13:02
PROVIDERS: PCP Internal Medicine; Visit Provider Internal Medicine
DX: C34.91 Malignant neoplasm of unspecified part of right bronchus or lung (principal)
CPT/HCPCS: 70498; 71275

== ENCOUNTER → 2025-09-30 13:04 | Outpatient (BNV) | payer OTHER, SELFPAY | PROVIDERS: PCP Internal Medicine; Visit Provider Radiology Diagnostic Radiology | DX: R91.1 Solitary pulmonary nodule (principal); R06.02 Shortness of breath; R22.1 Localized swelling, mass and lump, neck | CPT/HCPCS: 70498; 71275 ==

== ENCOUNTER 2025-10-01 08:24 | Outpatient (REF) | payer OTHER, SELFPAY ==
--- OUTSIDE RECORDS SUMMARY | 2025-09-23 15:00 | XMS_ITS | Encounter Summary ---
Author Organization [facility] Address [address] [place] [address] Phone Care Team Providers Care Major Assembler Name Role Phone Vickey Robles MD Primary Care Provider + Verna Drake MD Unavailable [phone] Reason for Referral * Consultation (Within 1 month) - New Request Specialty Diagnoses / Procedures Referred By Jarett bueno Referred To Contact Diagnoses Malignant neoplasm of ovary, unspecified laterality Lisa Huerta MD [address] [facility] [employer] [address] [place] [address] Phone: tel: fax: mailto:[email or web address] GENETICS AND PREVENTION REF [id number] Referral ID Status Reason Start Date Expiration Date V isits Requested Visits Authorized [id number] New Request 09/23/2025 09/23/2026 1 1 Encounter Details Date Type Department Care Team (Late st Contact Info) Description 09/23/2025 3:00 PM EST Office Visit [facility], [facility], [facility] [place] [facility] [place] [address] [address] Lisa Huerta MD [address] [facility] [employer] [address] [place] [address] [email or web address] Malignant neoplasm of ovary, unspecified laterality (Primary [...] high school, GED, job training, learning the [place]ym[place] language, technical skills, or developing parenting skills)? [...] the original note were not included. ?? CLINICAL BIOCHEMIST MEDICAL ONCOLOGY OFFICE VISIT DATE OF VISIT: 09/23/2025 REFERRING MD: Dr. Verna Drake/EBEN Mcmanus ID/CC: Ms. Yadav is a 60 y.o. 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 FNA; LYMPH NODE, STATION 7, FINE NEEDLE ASPIRATION ([id number]; 05/28/2024): POSITIVE FOR MALIGNANT CELLS. 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 Immunohistochemistry performed at the outside institution and reviewed at [facility] demonstrates the following staining profile in lesional cells: Positive: CK7 (focal), WT1, PAX8, p53 (mutant pattern), Negative: TTF1, napsin and CK20. 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 B. LUNG, RIGHT; LUNG, RIGHT UPPER LOBE, BIOPSY ([id number]; 07/17/2025): POSITIVE FOR MALIGNANT CELLS. Adenocarcinoma, consistent with metastasis from Mullerian primary. Immunohistochemistry performed at the outside institution and reviewed at [facility] demonstrates the following staining profile in lesional cells: Negative: Her2 (1+) Per report, immunohistochemistry performed at the outside institution shows the following staining profile in lesional cells: Positive: CK7, PAX8 Negative: TTF1 IMAGING 08/25/[address] Skull to Mid Thigh Subsequent Order: [id number] Impression 1. New FDG avid left intraparotid [...] unspecified laterality (Primary) - Ambulatory referral to [facility] Genetics and Prevention to evaluate BRCA2 VUS - Continue with current regimen for additional 2-3 cycles then repeat imaging to assess response, as initial imaging was only after one cycle of carbo/gem - Screened for clinical trials, eligible for our HER2 specific trials, including 25- Sara-Cfyotrp80 maintenance if she responds to chemotherapy or [...] spent on 09/23/2025 for this visit in xbrw-nv-chmw and non bcsb-on-nbsl time reviewing, documenting, and obtaining, clinical information, coordinating with the care team and/or other specialists, and counseling the patient: 55 minutes. Lisa Huerta MD, [place] Medical CLINICAL BIOCHEMIST Oncology Attending documented in this encounter Plan of Treatment Upcoming Encounters Date Type Department Care Team (Late st Contact Info) Description 11/04/2025 11:00 AM EST Telemedicine Center [facility] Cancer Gen[facility] and [facility], [facility] [address] [place] [address], 10th [place] [address] Mago Stratton MD, MPH [address] [place] [address] [email or web address] Marcie Lorenzo, [facility] [address] [place] [address] [email or web address] Scheduled Referrals Name Type Priority Associated Diagnoses Orde r Schedule Ambulatory referral to [facility] Genetics and Prevention Outpatient Referral Routine Malignant neoplasm of ovary, unspecified laterality Ordered: 09/23/2025 documented as of this encounter Visit Diagnoses Diagnosis Malignant neoplasm of ovary, unspecified laterality- Primary documented in this encounter Care Teams Major Assembler Relationship Specialty Start Date End Date Vickey Robles MD [address] [place] [address] PCP - General Internal Medicine 09/12/25 Verna Drake MD [address] [place] [phone] [email or web address] Referring Physician Internal Medicine 09/12/25 documented as of this encounter Additional Source Comments The information contained in this document represents components of the legal health record. It is not the complete legal health record.[facility]
--- NOTE | ~2025-10-01 | CT_ITS ---
EXAMINATION: CT ANGIOGRAM NECK CLINICAL INFORMATION: Malignant neoplasm of lung. Rule out DVT associated with Mediport. Swelling of neck and upper chest. COMPARISON: Prior day's CT angiogram neck and chest. TECHNIQUE: Chest bolus sequences and neck intravenous bolus administration 70 mL of Omnipaque 350. Helical imaging was performed in the axial plane from the aortic arch to the skull vertex. Attempt was made for venous phase delayed acquisition. The data was processed at the certified neurodiagnostic technologist's workstation for generation of MIP sequences. Angled MIPs and volume rendered reformatted images were also generated at an offline 3D workstation. Stenoses are assessed in accordance with NASCET criteria unless otherwise indicated. This CT examination was performed using dose optimization techniques as appropriate, variously including the following: *Automated exposure control *Adjustment of mA and/or kV according to patient size (this includes techniques or standardized protocols for targeted exams where dose is matched to indication/reason for exam; i.e. extremities or head) *Use of iterative reconstruction technique FINDINGS: There is a left-sided Mediport in place, extending into the left subclavian vein proximally, and coursing through the left brachiocephalic vein and into the SVC. There is no evidence of thrombus surrounding the Mediport although there appears to be a relatively high-grade venous stenosis of the proximal brachiocephalic vein on the left (series 12, images 134-136), likely secondary to long-term catheter indwelling and resultant venous stenosis. There are numerous venous collaterals seen above the thoracic inlet level extending into the neck, and involving the vertebral plexus bilaterally. There appears to be enlargement of the right subclavian vein extending to the level of the brachiocephalic confluence, raising the possibility of right upper arm DVT. The SVC included in the imaging is patent. Please refer to yesterday's CT angiogram neck and chest for arterial evaluation, mediastinal findings, and pulmonary findings. There are bilateral supraclavicular enlarged lymph nodes present, an infiltrating tumor is seen surrounding the mid to inferior trachea and mediastinal structures. There is encasement of the right mainstem bronchus, and segmental right upper lobe bronchi and bronchus intermedius. CT/CT angio neck IMPRESSION: 1. Left-sided Mediport in place, extending into the proximal left subclavian vein and coursing through the left brachiocephalic vein into the SVC. There is a high-grade venous narrowing at the proximal left brachiocephalic vein, without thrombus present, likely secondary to long-term indwelling catheter. There are venous collaterals in the anterior and posterior neck. 2. The right brachiocephalic vein is patent to the level of the right subclavian vein, however there is bulky adenopathy in the thoracic inlet region, and absence of enhancement of the right subclavian vein could suggest RIGHT subclavian vein thrombosis (versus venous compression from adenopathy). Recommend correlating with a right upper extremity DVT ultrasound. 3. Refer to yesterday's CT examinations of the neck and chest for lung, lymph node, and mediastinal findings. Findings discussed with Dr. Drake via secure text at 10:10 AM, 10/01/2025. Electronically signed by: Emil Mccarthy MD 10/01/2025 10:19 AM ABIGAIL CRENSHAW
--- NOTE | ~2025-10-01 | US_ITS ---
EXAMINATION: US TRIPLEX UPPER EXTREMITY, RIGHT CLINICAL INFORMATION: Right upper extremity swelling COMPARISON: None available. TECHNIQUE: Color-flow triplex imaging with spectral analysis and compression Doppler was performed on the right upper extremity. FINDINGS: The right internal jugular, subclavian, and axillary veins are patent and free of thrombus. The imaged segment of the right brachiocephalic vein is patent. Spectral doppler waveforms are normal. The brachial, basilic, cephalic, radial, and ulnar veins are patent and compressible. A prominent external jugular vein is noted. US/US venous duplex UE RT IMPRESSION: No evidence of deep venous thrombosis involving the right upper extremity. Electronically signed by: Ruslan Armendariz MD 10/01/2025 11:52 AM EST
--- OUTSIDE RECORDS SUMMARY | 2025-10-01 08:29 | XMS_ITS | Encounter Summary ---
Author Organization [facility] Address [address] [place] [address] [place] [address] Phone Care Team Providers Care Ticket Machine Operator Name Role Phone Vickey Robles MD Primary Care Provider + Verna Drake MD Unavailable [phone] Reason for Visit * Reason Onset Date Comments Care Coordination 09/30/2025 Encounter Details Date Type Department Care Team (Late st Contact Info) Description 09/30/2025 Telephone [facility], [facility], [facility] [place] [address] [place] [address], 10[address] [place] [address] Carol Rivera, MARA [address] [place] [address] [email or web address] Care Coordination Social History Tobacco Use Types [...] high school, GED, job training, learning the Barbadian language, technical skills, or developing parenting skills)? [...] patient's primary oncologist, Dr. Verna Drake from [facility] Hematology. She mentioned they performed FOLR1 [...] Message sent to Dr. Huerta. Carol SHIN, LEAD SYSTEMS ENGINEER Oncology Nurse Navigator documented in this encounter Plan of Treatment Upcoming Encounters Date Type Department Care Team (Late st Contact Info) Description 11/04/2025 11:00 AM EST Telemedicine [facility], [facility] [place] [address] [facility], 10th [place] [address] Mago Stratton MD, MPH [address] [place] [phone] [email or web address], [address] [address] [email or web address] documented as of this encounter Visit Diagnoses Not on filedocumented in this encounter Care Teams Ticket Machine Operator Relationship Specialty Start Date End Date Vickey Robles MD [address] [place] [phone] PCP - General Internal Medicine 09/12/25 Verna Drake MD [address] [place] [phone] [email or web address] Referring Physician Internal Medicine 09/12/25 documented as of this encounter Additional Source Comments The information contained in this document represents components of the legal health record. It is not the complete legal health record.[facility]
--- OUTSIDE RECORDS SUMMARY | 2025-10-01 08:29 | XMS_ITS | Clinical Summary ---
Author Organization [facility] Address [address] [place] [address] Phone Care Team Providers Care Ball Shagger Name Role Phone Unavailable Primary Care Provider Unavailabl e Encounters Date Type Department Care Team Description 08/22/2025 2:00 PM EST - 08/22/2025 11:59 PM EST Hospital Encounter [facility] PET Scan [address] [place] [phone] History of ovarian cancer Discharge Disposition: Home [...] Tobar Reviewed and Electronically Signed By: Vale Toabr Signed Date: 08/25/2025 15:26 ET Workstation ID: [id number] Transcribed By: Self Edit Transcribed Date: 08/25/2025 [...] Signed Date: 08/25/2025 15:26 ET Workstation ID: [id number] Transcribed By: Self Edit Transcribed Date: 08/25/2025 14:18 ET [facility] MD [facility] Final Result from Last [address] [place] [address] [facility]
--- OUTSIDE RECORDS SUMMARY | 2025-10-01 08:29 | XMS_ITS | Encounter Summary ---
Author Organization [facility] Address [address] [facility] [address] [place] [address] Phone Care Team Providers Care County Coroner Name Role Phone Vickey Robles MD Primary Care Provider + Verna Drake MD Unavailable [phone] Encounter Details Date Type Department Care Team (Late st Contact Info) Description 09/23/2025 Orders Only [facility], [facility], [facility] [place] [address] [place] [address], 10th [address] [place], [place] [phone] Lisa Huerta MD [address] [place] [address] [id number] [place] [address] [email or web address] Gynecologic cancer Social History Tobacco Use Types [...] high school, GED, job training, learning the Ivorian language, technical skills, or developing parenting skills)? [...] for Cancer Genetics and Prevention, [facility] [place] [address] [place] [address], 10[address] [place] [address] Mago Stratton MD, MPH [address] [place] [phone] [email or web address] Marcie Lorenzo, [facility] [place] [address] [place] [address] [email or web address] documented as of this encounter Procedures Procedure Name Priority Date/Time Associated Diagnosis Comments OUTSIDE PATHOLOGY REVIEW/CONSULT Routine 09/23/2025 12:28 PM EST Gynecologic cancer TISSUE EXAM Routine 05/28/2024 Gynecologic cancer documented in this encounter Results * Outside Pathology Review/Consult (09/23/2025 12:28 PM EST) Consult Auto Resulting Yes 09/23/2025 12:35 PM EST [facility] Consult 09/23/2025 12:2 8 PM EST 09/23/2025 12:28 PM EST us Lisa Huerta MD LAB PATHOLOGY ORDERABLES Final R esult [facility] [address] [place] [address] * Tissue Exam (05/28/2024) Final Pathologic Diagnosis CONSULT MATERIAL RECEIVED FROM [facility], [place], [place]: A. FNA; LYMPH NODE, STATION 7, FINE NEEDLE ASPIRATION ([id number]; 05/28/2024): POSITIVE FOR MALIGNANT CELLS. 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 Immunohistochemistry performed at the outside institution and reviewed at [facility] demonstrates the following staining profile in lesional cells: Positive: CK7 (focal), WT1, PAX8, p53 (mutant pattern), Negative: TTF1, napsin and CK20. 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 B. LUNG, RIGHT; LUNG, RIGHT UPPER LOBE, BIOPSY ([id number]; 07/17/2025): POSITIVE FOR MALIGNANT CELLS. Adenocarcinoma, consistent with metastasis from Mullerian primary. Immunohistochemistry performed at the outside institution and reviewed at [facility] demonstrates the following staining profile in lesional cells: Negative: Her2 (1+) Per report, immunohistochemistry performed at the outside institution shows the following staining profile in lesional cells: Positive: CK7, PAX8 Negative: TTF1 09/26/2025 11:25 AM EST [facility] at 1125 EST Clinical History 59F with RUL mass. 09/26/2025 11:25 AM EST [facility] Materials Received Consult slides received from [facility], [place], [place]: A. FNA; LYMPH NODE, STATION 7, FINE NEEDLE ASPIRATION [id number] - 05/28/2024 Blocks: 0 Stained Slides: 21 Number of Unstained Slides: 0 B. Lung, Right; LUNG, RIGHT UPPER LOBE, BIOPSY [id number] - 07/17/2025 Blocks: 0 Stained Slides: 5 Number of Unstained Slides: 0 09/26/2025 11:25 AM EST [facility] Result Priority Level Routine 09/26/2025 11:25 AM EST [facility] Disclaimer By their signature above, [...] in this report. 09/26/2025 11:25 AM EST [facility] Consult (FNA) 05/28/2024 09/23/2025 12:28 PM EST Consult (Lung, Right) 07/17/2025 09/24/2025 9:56 AM EST us Lisa Huerta MD LAB PATHOLOGY ORDERABLES Final R esult [facility] [address] [place] [phone] documented in this encounter Visit Diagnoses Diagnosis Gynecologic cancer documented in this encounter Care Teams County Coroner Relationship Specialty Start Date End Date Vickey Robles MD [address] [place] [phone] PCP - General Internal Medicine 09/12/25 Verna Drake MD [address] [place] [phone] [email or web address] Referring Physician Internal Medicine 09/12/25 documented as of this encounter Additional Source Comments The information contained in this document represents components of the legal health record. It is not the complete legal health record.[facility]
--- OUTSIDE RECORDS SUMMARY | 2025-10-01 08:29 | XMS_ITS | Clinical Summary ---
Author Organization [facility] Address [address] [place] [address] Phone Care Team Providers Care Senior It Business Analyst Name Role Phone Vickey Robles MD Primary Care Provider + Verna Drake MD Unavailable [phone] Medications multivitamins with iron Tab Take [...] Oncology, [facility], [facility] [place] [address] [facility], 10th [place] [address] Carol Rivera, MARA Care Coordination 09/23/2025 3:00 PM EST Office Visit [facility] for [facility], [facility], [facility] [place] [facility] [place] [address] [facility] 4th [place] [address] Lisa Huerta MD Malignant neoplasm of ovary, unspecified laterality (Primary Dx) 09/23/2025 Orders Only [facility], [facility], [facility] [address] [facility], [address] [place] [address] Lisa Huerta MD Gynecologic cancer 09/19/2025 Ancillary Orders DF IMG OUTSIDE IMG [address] [place] [phone] Lisa Huerta MD 09/19/2025 Orders Only [facility], [facility], [address] [facility], [address] [place] [address] Lisa Huerta MD Gynecologic cancer (Primary Dx) 09/18/2025 Ancillary Orders DF IMG OUTSIDE IMG [address] [place] [address] Lisa Huerta MD 09/18/2025 Ancillary Orders DF IMG OUTSIDE IMG [address] [place] [address] Lisa Huerta MD 09/18/2025 Ancillary Orders DF IMG OUTSIDE IMG [address] [place] [address] Lisa Huerta MD 09/18/2025 Ancillary Orders DF IMG OUTSIDE IMG [address] [place] [address] Lisa Huerta MD 09/18/2025 Orders Only [facility], [facility], [facility] [address] [facility], [address] [place] [address] Lisa Huerta MD Gynecologic cancer (Primary Dx) 09/16/2025 Orders Only [facility], [facility], [facility] [address] [facility] [address] [place] [address] Lisa Huerta MD Gynecologic cancer (Primary Dx) 08/22/2025 Ancillary Procedure DF IMG OUTSIDE IMG [address] [place] [address] Lisa Huerta MD from Last 3 Months [...] high school, GED, job training, learning the Portuguese language, technical skills, or developing parenting skills)? [...] for Cancer Genetics and Prevention, [facility] [place] [address] [place] [address], 10[address] [place] [address] Mago Stratton MD, MPH [address] [place] [phone] [email or web address] Marcie Lorenzo, [facility] [address] [place] [address] [email or web address] Health Maintenance Due Date Last Done Comments [...] Auto Resulting Yes 09/23/2025 12:35 PM EST [facility] Consult 09/23/2025 12:2 8 PM EST 09/23/2025 12:28 PM EST us Lisa Huerta MD LAB PATHOLOGY ORDERABLES Final R esult [facility] [address] [place] [phone] * Outside Lab (Non-MGB) (09/08/2025) us Scanning [...] Final Result from Last 3 Months Insurance [place] [employer] [employer] [employer] [employer] [employer] [employer] Care Teams Senior It Business Analyst Relationship Specialty Start Date End Date Vikcey Robles MD [address] [place] [phone] PCP - General Internal Medicine 09/12/25 Verna Drake MD [address] [place] [phone] [email or web address] Referring Physician Internal Medicine 09/12/25 Additional Source Comments The information contained in this document represents components of the legal health record. It is not the complete legal health record.[facility]
[2025-10-01] MEDS: iohexoL 350 MG/ML 100 ML INFUS..BTL 70 ML IV (09:40)
== END 2025-10-01 08:25 | disposition home or self-care (01) ==
LOC: HO.CT 08:24
PROVIDERS: PCP Internal Medicine; Visit Provider Internal Medicine
DX: C34.91 Malignant neoplasm of unspecified part of right bronchus or lung (principal); C56.9 Malignant neoplasm of unspecified ovary
CPT/HCPCS: 70498; 93971; Q9967

== ENCOUNTER → 2025-10-01 08:27 | Outpatient (BNV) | payer OTHER, SELFPAY | PROVIDERS: PCP Internal Medicine; Visit Provider Radiology Diagnostic Radiology | DX: R22.1 Localized swelling, mass and lump, neck (principal); R22.31 Localized swelling, mass and lump, right upper limb | CPT/HCPCS: 70498; 93971 ==